=== PATIENT | male | born 1955 | race Caucasian/White ===

== ENCOUNTER → 2016-06-28 | Outpatient (CLI) | payer OTHER ==
[~2016-06-28] MED LIST: ALBUAER INH; AMOX1TAB43 PO; AMOX875T PO; ASPEC325 PO; ASPI325T39 PO; BUTA1TAB70 PO; EZET10TA63 PO; FLUT0.15 NAE; GLC/500 PO; HMLI SC; HYDR-5688 PO; INSDGI SC; LISI-461 PO; METF1000 PO; NVLG SC; OMEP20CA59 PO; PRD10 PO; PROP80CA PO; SIMV80TA2 PO; SULF800T23 PO; TRAM-10 PO; UMEC1AER INH
[2016-06-28 12:58] LABS: HEMATOCRIT 47.1 % (42-52); MEAN CELL VOLUME 85.6 fL (80-100); MEAN CORPUSCULAR HEMOGLOBIN 29.3 pg (25-34); MEAN CORPUSCULAR HGB CONC 34.2 g/dl (32-36); MEAN PLATELET VOLUME 10.3 fL (7.4-10.4); PLATELET COUNT 358 K/uL (130-400); WHITE BLOOD COUNT 10.21 K/uL (4.8-10.8)
[2016-06-28 13:09] LABS: ALT/SGPT 26 U/L (12-78); AST/SGOT 10 U/L (15-37); BLOOD UREA NITROGEN 15 mg/dl (7-18); CALCIUM 8.8 mg/dl (8.5-10.1); CARBON DIOXIDE 28 mmol/L (21-32); CHLORIDE 105 mmol/L (98-107); CHOLESTEROL 252 mg/dl (0-200); CREATININE 0.82 mg/dl (0.60-1.40); GLUCOSE 70 mg/dl (70-99); POTASSIUM 4.3 mmol/L (3.5-5.1); SODIUM 139 mmol/L (136-145); TRIGLYCERIDES 244 mg/dl (0-150); VERY LOW DENSITY LIPOPROT CALC 49 mg/dl
[2016-06-28 13:14] LABS: ALKALINE PHOSPHATASE 103 U/L (45-117); HDL CHOLESTEROL 36 mg/dl; LDL CHOLESTEROL CALCULATED 167 mg/dl; PROSTATE SPECIFIC ANTIGEN 0.982 ng/ml (0.000-4.000)
[2016-06-28 13:31] LABS: ESTIMATED AVERAGE GLUCOSE 154 mg/dl; HA1C FLAG Normal (Normal)
[2016-06-28 13:34] LABS: RATIO 64.7 mcg/mg (0-30.0)
== END | disposition home or self-care (01) ==
LOC: C.LABBFT 09:26
PROVIDERS: ATTEND Internal Medicine
DX: E11.29 Type 2 diabetes mellitus with other diabetic kidney complication (principal); Z12.5 Encounter for screening for malignant neoplasm of prostate

== ENCOUNTER → 2016-07-05 | Outpatient (CLI) | payer OTHER ==
--- NOTE | 2016-07-05 15:55 | DIAGNOSTIC IMAGING REPORT ---
CHEST 2 VIEWS ROUTINE CLINICAL HISTORY: R05 Cough dyspnea COMPARISON STUDY: 05/29/2014 FINDINGS: Slight chronic bibasilar interstitial change. No focal infiltrate. Diaphragms are smooth. Calcific angles are sharp. IMPRESSION: Chronic change. No acute process. Electronically signed by: James Mercado M.D. 07/05/2016 3:53 PM Dictated Date/Time: 07/05/2016 3:53 PM
== END | disposition home or self-care (01) ==
LOC: C.RAD 15:21
PROVIDERS: ATTEND Internal Medicine
DX: R05 Cough (principal)

== ENCOUNTER → 2016-08-23 | Outpatient (CLI) | payer OTHER ==
--- NOTE | 2016-08-23 16:16 | DIAGNOSTIC IMAGING REPORT ---
CT OF THE CHEST WITHOUT IV CONTRAST CLINICAL HISTORY: Cough. Dyspnea on exertion. COMPARISON STUDY: Chest radiograph July 05, 2016. CT DOSE: 312.42 mGy.cm TECHNIQUE: Axial images of the chest were obtained without IV contrast. Images were reviewed in the axial, sagittal, and coronal planes. IV contrast was not administered for this examination. FINDINGS: There is no pneumothorax or pleural effusion. There is severe narrowing of the bronchus intermedius due to a suspected mass. The mass-like abnormality measures approximately 4.1 x 3.8 cm. This mass abuts the pericardium. There is severe narrowing of the origin of the right middle lobe bronchi with suspected occlusion of the right lower lobe bronchus and proximal aspects of the segmental bronchi to the right lower lobe. Note is made of moderate volume loss of the right middle and right lower lobes. There are innumerable tree-in-bud nodules within the right middle and right lower lobes. A mildly enlarged right hilar lymph node shown on image 139 of 271 measures 1.4 cm in short axis diameter. A few small tree-in-bud nodules within the lingula are noted. The heart is mildly enlarged. There is extensive coronary artery calcification. Moderate upper lobe predominant emphysema is present. No suspicious osseous lesions are identified. No abnormalities are identified within visualized portions of the upper abdomen. IMPRESSION: 1. 4.1 x 3.8 cm mass within the right lower lobe with large endobronchial component which occludes the right lower lobe bronchus and severely narrows the bronchus intermedius and right middle lobe bronchi. This is highly suggestive of a neoplasm and worrisome for bronchogenic carcinoma. Consultation for consideration for bronchoscopy is recommended. Mass extends to the pericardium. Mild right middle lobe and right lower lobe volume loss with innumerable tree-in-bud nodules within these lobes. These nodules are likely postobstructive/infectious. Metastatic disease is considered less likely. 2. Indeterminate mildly enlarged right hilar lymph node. 3. Moderate emphysema. 4. Several tree-in-bud nodules within the lingula which favor an infectious etiology. 5. Moderate cardiomegaly and coronary artery calcification. Electronically signed by: Chad Kay M.D. 08/23/2016 4:14 PM Dictated Date/Time: 08/23/2016 3:45 PM
== END | disposition home or self-care (01) ==
LOC: C.CTS 15:32
PROVIDERS: ATTEND Nurse Practitioner
DX: J43.9 Emphysema, unspecified (principal); R91.8 Other nonspecific abnormal finding of lung field; I51.7 Cardiomegaly; R06.00 Dyspnea, unspecified; R05 Cough

== ENCOUNTER → 2016-08-30 | Outpatient (CLI) | payer OTHER | END | disposition home or self-care (01) | LOC: C.LAB 14:45 | PROVIDERS: ATTEND Surgery | DX: C34.90 Malignant neoplasm of unspecified part of unspecified bronchus or lung (principal) ==

== ENCOUNTER 2016-09-03 05:11 | Day surgery (SDC) | payer OTHER ==
[2016-08-30 16:33] LABS: BASO % 0.6 %; BASO ABS # 0.05 K/uL (0-0.2); COMPLETE YES; EOS % 3.9 %; HEMATOCRIT 48.2 % (42-52); IG% 0.2 %; LYMPH % 22.5 %; LYMPH ABS # 2.02 K/uL (1.2-3.4); MEAN CELL VOLUME 85.6 fL (80-100); MEAN CORPUSCULAR HEMOGLOBIN 28.4 pg (25-34); MEAN CORPUSCULAR HGB CONC 33.2 g/dl (32-36); MEAN PLATELET VOLUME 9.6 fL (7.4-10.4); MONO % 10.6 %; NEUT % 62.2 %; PLATELET COUNT 362 K/uL (130-400); RED BLOOD COUNT 5.63 M/uL (4.7-6.1); WHITE BLOOD COUNT 8.97 K/uL (4.8-10.8)
[2016-08-30 17:15] LABS: BLOOD UREA NITROGEN 15 mg/dl (7-18); BUN/CREATININE RATIO 18.4 (10-20); CALCIUM 8.9 mg/dl (8.5-10.1); CARBON DIOXIDE 29 mmol/L (21-32); CHLORIDE 104 mmol/L (98-107); CREATININE 0.83 mg/dl (0.60-1.40); GLUCOSE 96 mg/dl (70-99); POTASSIUM 3.8 mmol/L (3.5-5.1); SODIUM 141 mmol/L (136-145)
[2016-08-31 09:58] VITALS: BMI 26.0
[~2016-09-03] VITALS: Ht 177.8 cm; Wt 84.1 kg
[~2016-09-03 05:11] MED LIST changes: -AMOX1TAB43 PO; -AMOX875T PO; -ASPI325T39 PO; -BUTA1TAB70 PO; -FLUT0.15 NAE; -HYDR-5688 PO; -METF1000 PO; -NVLG SC; -OMEP20CA59 PO; -PRD10 PO; -SULF800T23 PO; -TRAM-10 PO
[2016-09-03] MEDS ORDERED: EpINEphrine INJ 1MG/ML AMP 1 MG/ML AMP IV ONE (05:12)
[2016-09-03 05:34] VITALS: BP 145/73; PULSE 59; TEMP 36.6; O2SAT 96; Ht 177.8 cm; Wt 84.1 kg
[2016-09-03] MEDS ORDERED: LACTATED RINGER'S 1000ML 1,000 ML IV SCH (06:00)
[2016-09-03] MEDS ORDERED: ONDANSETRON INJ 2 MG/ML 2 ML VIAL ONE (06:15)
[2016-09-03] MEDS ORDERED: FENTANYL CITRATE INJ 50 MCG/1 ML 2 ML VIAL ONE (06:15)
[2016-09-03] MEDS ORDERED: GLYCOPYRROLATE INJ 0.2 MG/ML VIAL ONE ×2 (06:15→08:12)
[2016-09-03] MEDS ORDERED: MIDAZOLAM HCL 1 MG/ML 2ML VIAL ONE (06:15)
[2016-09-03] MEDS ORDERED: ROCURONIUM BROMIDE 10 MG/ML 5 ML VIAL ONE (06:15)
[2016-09-03] MEDS ORDERED: PROPOFOL IV EMULSION 10 MG/ML 20 ML VIAL IV ONE ×2 (06:15→08:12)
[2016-09-03] MEDS ORDERED: LIDOCAINE HCL 2% 2 ML VIAL (20MG/ML) ONE (06:15)
[2016-09-03] MEDS ORDERED: PHENYLEPHRINE HCL INJ 10 MG/ML VIAL ONE (06:15)
[2016-09-03] MEDS ORDERED: EpHEDrine SULFATE 50MG/5ML SYR ONE (06:15)
[2016-09-03] MEDS ORDERED: SUCCINYLCHOLINE CHLORIDE 20 MG/ML 10 ML VIAL IV ONE (06:15)
[2016-09-03] MEDS ORDERED: NEOSTIGMINE METHYLSULFATE 5 MG/5 ML SYR ONE (06:15)
[2016-09-03] MEDS ORDERED: DEXAMETHASONE SOD INJ 4 MG/ML VIAL ONE (06:15)
--- NOTE | 2016-09-03 07:01 | History & Physical Bridge Note ---
H&P Re-Evaluation Bridge Note: I have examined the patient, reviewed the History & Physical and in the interval since the performance of the History & Physical I have noted the following changes of clinical significance: No changes noted
--- NOTE | 2016-09-03 07:18 | Discharge Instructions ---
Discharge Instructions Date of Service Sep 03, 2016. Visit Reason for Visit: Right Lung Mass, Iddm Discharge Discharge Diagnosis / Problem: Right Lung Mass Discharge Goals Goal(s): Learn about illness Activity Recommendations Activity Limitations: resume your previous activity (in 24 hours) Anesthesia . Post Anesthesia Instructions: If you have had General Anesthesia or IV Sedation: * Do not drive today. * Resume driving when surgeon permits. * Do not make important decisions or sign legal documents today. * Call surgeon for: 1. Temperature elevations greater than 101 degrees F. 2. Uncontrollable pain. 3. Excessive bleeding. 4. Persistent nausea and vomiting. 5. Medication intolerance (nausea, vomiting or rash). * For nausea and vomiting use only clear liquids such as: tea, soda, bouillon until nausea subsides, then gradually increase diet as tolerated. * If you have any concerns or questions, call your surgeon's office. If physician is unavailable and it is an emergency, call 911 or go to the nearest emergency room. . Instructions / Follow-Up Instructions / Follow-Up 1. You may cough up some blood. Call physician if excessive amount noted. 2. Office appointment with Dr. Chappell in 1 week. Office will call you with date and time of appointment. Diet Recommendations Recommended Home Diet: resume previous diet Pending Studies Studies pending at discharge: no Medical Emergencies . Who to Call and When: Medical Emergencies: If at any time you feel your situation is an emergency, please call 911 immediately. . Non-Emergent Contact Non-Emergency issues call your: Surgeon Call Non-Emergent contact if: you have a fever . . "Provider Documentation" section prepared by Douglas Anderson. .
[2016-09-03] MEDS ORDERED: CLINDAMYCIN PHOS 150 MG/ML 2 ML VIAL ONE (07:29)
[2016-09-03] MEDS ORDERED: ONDANSETRON INJ 2 MG/ML 2 ML VIAL IV PRN (08:00)
[2016-09-03] MEDS ORDERED: ATROPINE SULFATE 0.1 MG/ML 5ML SYR IV PRN (08:00)
[2016-09-03] MEDS ORDERED: FENTANYL CITRATE INJ 50 MCG/1 ML 2 ML VIAL IV PRN (08:00)
--- NOTE | 2016-09-03 09:06 | DIAGNOSTIC IMAGING REPORT ---
CHEST ONE VIEW PORTABLE CLINICAL HISTORY: s/p FOB dyspnea COMPARISON STUDY: 07/05/2016 FINDINGS: Mild bibasilar infiltrative and/or atelectatic change. Slight prominence of pulmonary vasculature. Mild stable cardiomegaly. Mild chronic elevation right hemidiaphragm. IMPRESSION: Mild bibasilar atelectatic and/or infiltrative change. Pulmonary vascular congestion. Electronically signed by: James Mercado M.D. 09/03/2016 9:05 AM Dictated Date/Time: 09/03/2016 9:04 AM
--- NOTE | 2016-09-03 11:01 | OPERATIVE REPORT ---
DATE OF OPERATION: 09/03/2016 PREOPERATIVE DIAGNOSIS: Right hilar mass. 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 PROCEDURE: 1. Fiberoptic bronchoscopy with biopsy and debulking of right middle lobe mass. 2. Staging endobronchial ultrasound. SURGEON: Dr. Chappell. TEST ADMINISTRATOR: Dawit Razo, respiratory therapy. ANESTHESIA: General anesthesia endotracheal intubation. INDICATION FOR PROCEDURE AND FINDINGS: Mr. Cobian is a 60-year-old male who I just met 4 days ago when he was in the office. He had been referred over by Dr. Rolly Conde because he had a right hilar mass. I scheduled him for a bronchoscopy and as well as a staging endobronchial ultrasound with biopsy for today. SPECIFICS OF THE PROCEDURE: On 09/03/2016, the patient underwent uncomplicated induction of general anesthesia with insertion of an endobronchial ultrasound scope. I biopsied the left level 11, level 10, and level 4, as well as level 7 nodes. We got good biopsy results from the level 4, level 10, and level 11 sides. These were all benign and it appeared we were definitely in the lymph nodes. Unfortunately, it appears that he does have disease involving the level 7 node. It appeared to be a nonsmall cell lung carcinoma. I did not biopsy anything on the right as we already had proven into disease. I then saw the obstructing mass in the right bronchus intermedius. I did some biopsies were removed a large nodule, but this did not appear to be tissue. It did appear to be a concretion of some type. I had to remove this with a basket. I then biopsied this and noted some bleeding. I then used a cryoprobe to debulk this and opened it up nicely going to the lower lobe. I had to use a cryoprobe also to control bleeding. He tolerated it well. DESCRIPTION OF PROCEDURE: The patient brought to operating room, laid in the supine position. General anesthesia was induced and endotracheal intubation was performed. After appropriate timeout had been called and prophylactic antibiotics were given, I placed the endobronchial ultrasound probe in place. I could see there was an obstructing mass in the bronchus intermedius; however, we then started on the left side. I went down to level 11 and did 3 separate biopsies into a small node. Pulling back further, I did a left level 10 and biopsied this several times. I then did a left level 4. We received word that we really did not have good lymph node material on the third pass on the level 11, so I re-biopsied this and we had good lymph node tissue. I then had to re-biopsy the level 10 and level 4 areas as we did not have good biopsy specimens; however, that did come back that we had good biopsy results with good lymphocytes and we saw no evidence of tumor in these 3 lymph node stations. I then went to level 7. I biopsied this lymph node 10 separate times with 5 on the left and 5 on the right. There were actually 3 separate lymph nodes within this lymph node station. We got good biopsy results and it did appear that we were dealing with a nonsmall cell lung CA and that lymph node was positive. For this reason, I did not biopsy the right level 4 and right level 2, as these were not enlarged at any rate. I then irrigated out both airways and then attention was turned towards the obstructing mass in the left bronchus intermedius. It should be noted that it was well over a centimeter maybe 2 cm away from the takeoff of the right upper lobe bronchus and this was consistent with what we saw on the preoperative CT scan. I then used a forceps and biopsied and came upon a yellow concretion that was at least a centimeter across and was not really attached. I took some bite this and then we pulled it out in its entirety, but I could not get enough bite with the forceps to pull it out. For this reason, I used a basket and went down through the working channel and I was able to use the basket to capture this and bring it out. I then did brushes x3 down the bronchus intermedius; however, we got a fair amount of bleeding. In order to see better, I placed a balloon and inflated it and kept it inflated for a couple minutes and this did help. I also irrigated it with cold saline and then epinephrine. This controlled the bleeding enough for me to be able to put my cryoprobe down and debulk this tumor where I could see. We removed several portions with this and opened it up quite nicely. I also used a forceps as necessary. I was quite happy with this at the end of the case as we had opened it up nicely. We also had plenty of biopsy material. There was no further bleeding. I irrigated out the bronchus intermedius and sent off for bronchial washings. I then slowly removed the bronchoscope and there was no bleeding noted from either airway. There was no mucus left either. He tolerated it well and was extubated in the room. I attest to the content of the Intraoperative Record and any orders documented therein. Any exceptions are noted below. BINU
[2016-09-03 11:05] VITALS: BP 142/82; PULSE 66; TEMP 36.7; O2SAT 93
--- NOTE | 2016-09-03 11:17 | Anesthesiology Progress Note ---
Anesthesia Post Op Note Date & Time Sep 03, 2016 at 11:17 Vital Signs Pain Intensity: 0 Vital Signs Past 12 Hours Date Time Temp Pulse Resp B/P (MAP) Pulse Ox O2 Delivery O2 Flow Rate FiO2 09/03/16 09:50 64 22 119/64 90 Mask 2 09/03/16 09:10 63 18 119/55 95 Mask 10 09/03/16 09:00 68 19 146/67 97 Mask 10 09/03/16 08:50 61 16 145/69 96 Mask 12 09/03/16 08:40 36.3 70 18 135/72 95 Mask 12 09/03/16 05:34 36.6 59 20 145/73 (97) 96 Room Air Notes Mental Status: alert / awake / arousable, participated in evaluation Pt Amnestic to Procedure: Yes Nausea / Vomiting: adequately controlled Pain: adequately controlled Airway Patency, RR, SpO2: stable & adequate BP & HR: stable & adequate Hydration State: stable & adequate Anesthetic Complications: no major complications apparent
[2016-09-03 11:35] VITALS: BP 160/74; PULSE 70; TEMP 37.2; O2SAT 95
[2016-09-03 12:05] VITALS: BP 150/70; PULSE 69; TEMP 36.7; O2SAT 93
[2016-09-03 12:30] VITALS: BP 130/68; PULSE 70; TEMP 36.6; O2SAT 93
[2016-10-29] MEDS ORDERED: OMEP20CA59 PO (16:09)
[2016-11-12] MEDS ORDERED: TRAM-10 PO (08:27)
== END 2016-09-03 12:50 | disposition home or self-care (01) ==
LOC: C.ACU 05:11
PROVIDERS: ATTEND Surgery
DX: C34.01 Malignant neoplasm of right main bronchus (principal); J44.9 Chronic obstructive pulmonary disease, unspecified; I10 Essential (primary) hypertension; E11.9 Type 2 diabetes mellitus without complications; Z87.891 Personal history of nicotine dependence; E78.00 Pure hypercholesterolemia, unspecified; Z82.49 Family history of ischemic heart disease and other diseases of the circulatory system; Z83.3 Family history of diabetes mellitus; Z79.82 Long term (current) use of aspirin; Z79.4 Long term (current) use of insulin; Z79.899 Other long term (current) drug therapy

== ENCOUNTER → 2016-09-10 | Outpatient (CLI) | payer OTHER ==
[~2016-09-10] MED LIST changes: +AMOX1TAB43 PO; +AMOX875T PO; +ASPI325T39 PO; +HYDR-5688 PO; +NVLG SC; +OMEP20CA59 PO; +PRD10 PO; +SULF800T23 PO; +TRAM-10 PO
--- NOTE | 2016-09-10 11:01 | DIAGNOSTIC IMAGING REPORT ---
PET/CT CLINICAL HISTORY: Right lung mass. COMPARISON STUDY: Chest CT dated 08/23/2016. TECHNIQUE: One hour following the IV administration of 13.91 mCi of F-18 FDG, PET/CT examination was performed from the orbital meatal line through the bony pelvis. Noncontrast CT is performed for the purposes of anatomic correlation and attenuation correction. Note that this does not reflect a diagnostic CT examination. Images were reviewed on a separate [employer] independent workstation. Fused images were obtained. Standard uptake values reported are maximum values within the region of interest expressed in gm/mL. FINDINGS: PET FINDINGS: Head and neck: There is expected physiologic activity within the visualized brain parenchyma at the skull base and the salivary glands. Thorax: Evaluation of the thorax demonstrates expected physiologic myocardial activity. There is an infrahilar right lower lobe mass lesion identified. This measures approximately 4.5 x 3.8 cm and is markedly FDG avid with a maximum SUV of 7.0. There are numerous subcentimeter pulmonary nodules seen throughout the right middle and right lower lobes. Nodularity at the posterior right lung base has increased from 08/23/2016. These are FDG avid with a maximum SUV of 4.3. No left-sided pulmonary lesions are identified. A right hilar lymph node on image #86 measures 1.3 cm in short axis. This shows at least mild FDG uptake with a maximum SUV of 1.1. A precarinal node on image #79 is not pathologically enlarged but shows mild FDG activity. This measures 7 mm in short axis and demonstrates a maximum SUV of 2.3. No FDG avid left hilar adenopathy is seen. Abdomen and pelvis: There is expected activity within the liver, spleen, kidneys, renal collecting system, and bladder. Low-level bowel activity is likely within physical limits. Unenhanced CT images: Visualized brain parenchyma the skull base is grossly unremarkable. The bony orbits are intact and orbital contents are within normal limits. The salivary and thyroid glands are normal as visualized. The imaged paranasal sinuses and the mastoid air cells are clear. No cervical lymphadenopathy is seen. There is atherosclerotic calcification of the carotid bulbs. The heart is normal in size and without pericardial effusion. The coronary arteries are densely calcified. There is atherosclerotic calcification of the thoracic aorta which is normal in caliber. Emphysema is noted. No pleural effusion is identified. See above under PET findings for discussion of pulmonary lesions. There is no axillary lymphadenopathy. A tiny hiatal hernia is noted. The unenhanced liver, gallbladder, spleen, adrenal glands, and kidneys are grossly normal. The pancreas is atrophic. The abdominal aorta is normal in course and caliber noting advanced atherosclerotic calcification. No bowel obstruction is identified. There is moderate sigmoid diverticulosis without CT evidence of acute diverticulitis. A normal appendix is seen. There is no intraperitoneal free air or abdominal ascites. Foci of induration within the ventral abdominal wall are likely related to subcutaneous injections. The bladder, prostate, and seminal vesicles are normal as imaged. No abdominal, pelvic, or retroperitoneal lymphadenopathy is seen. Surgical clips are noted along the spermatic cord. The skeletal structures are well mineralized. No lytic or blastic bony lesions are suggested. Mild degenerative change is seen throughout the spine. IMPRESSION: 1. There is an infiltrative right infrahilar mass lesion measuring approximately 4.5 cm. This should be considered lung cancer until proven otherwise. 2. There are numerous subcentimeter nodules identified in the right middle and lower lobes. There is abnormal FDG localization within this region, and nodularity at the posterior right lung base appears increased from 08/23/2016. This could represent postobstructive pneumonitis and/or lymphangitic spread of tumor. 3. There is a mildly enlarged and FDG avid right hilar node. A precarinal node is not pathologically enlarged but also demonstrates low-level FDG uptake. Yanelis disease is not excluded. 4. No left-sided pulmonary lesions are identified. 5. There is no evidence of extrathoracic metastatic disease. 6. Emphysema. 7. Colonic diverticulosis without CT evidence of acute diverticulitis. 8. Additional findings as above. Electronically signed by: Alec Rogers M.D. 09/10/2016 11:00 AM Dictated Date/Time: 09/10/2016 10:44 AM
== END | disposition home or self-care (01) ==
LOC: C.PET 08:19
PROVIDERS: ATTEND Surgery
DX: R91.1 Solitary pulmonary nodule (principal)

== ENCOUNTER 2016-10-03 20:00 | Inpatient (IN) | payer OTHER ==
[~2016-10-03] VITALS: Ht 177.8 cm; Wt 82.0 kg
[~2016-10-03 20:00] MED LIST changes: -AMOX1TAB43 PO; -AMOX875T PO; -ASPI325T39 PO; -HYDR-5688 PO; -NVLG SC; -OMEP20CA59 PO; -PRD10 PO; -SULF800T23 PO; -TRAM-10 PO
[2016-10-03] MEDS ORDERED: ASPI325T39 PO (20:35)
[2016-10-03] MEDS ORDERED: INSDGI SC (20:37)
[2016-10-03] MEDS ORDERED: NVLG SC (20:40)
[2016-10-03] MEDS ORDERED: HYDR-5688 PO (20:44)
--- NOTE | 2016-10-03 21:00 | DIAGNOSTIC IMAGING REPORT ---
CHEST ONE VIEW PORTABLE CLINICAL HISTORY: Shortness of breath, chest pain and difficulty breathing. COMPARISON STUDY: Chest CT August 23, 2016, chest radiograph September 03, 2016 and PET/CT September 10, 2016. FINDINGS: There is no pneumothorax or pleural effusion. A right infrahilar mass is better depicted on PET/CT of September 10, 2016. Right lower lobe airspace opacity is present. There is mild left lower lobe opacity. There is no evidence of pulmonary edema. Cardiomediastinal silhouette is stable. IMPRESSION: 1. Redemonstration of the right infrahilar mass which is suspicious for malignancy and better depicted on prior PET/CT. 2. Right lower lung opacity which could reflect pneumonia or atelectasis. 3. No evidence of pulmonary edema. Electronically signed by: Chad Kay M.D. 10/03/2016 8:58 PM Dictated Date/Time: 10/03/2016 8:56 PM
[2016-10-03] MEDS ORDERED: OPTIRAY 320 IV PRN (21:30)
[2016-10-03 21:34] LABS: BASO % 0.4 %; BASO ABS # 0.05 K/uL (0-0.2); COMPLETE YES; IG% 0.5 %; LYMPH % 16.3 %; LYMPH ABS # 1.99 K/uL (1.2-3.4); MEAN CELL VOLUME 86.2 fL (80-100); MEAN CORPUSCULAR HEMOGLOBIN 28.5 pg (25-34); MEAN CORPUSCULAR HGB CONC 33.1 g/dl (32-36); MEAN PLATELET VOLUME 9.6 fL (7.4-10.4); MONO % 12.2 %; NEUT % 67.6 %; PLATELET COUNT 470 K/uL (130-400); RED BLOOD COUNT 4.87 M/uL (4.7-6.1); WHITE BLOOD COUNT 12.19 K/uL (4.8-10.8)
--- NOTE | 2016-10-03 21:37 | EMERGENCY ROOM VISIT NOTE ---
History Report prepared by Meredith: Vel Farias Under the Supervision of: Dr. Malena Ortega D.O. First contact with patient: 21:01 Chief Complaint: RESPIRATORY PROBLEMS Stated Complaint: TROUBLE BREATHING, CHEST PAINS History of Present Illness The patient is a 60 year old male who presents to the Emergency Room with complaints of constant, sharp back pain beginning prior to arrival. The patient states that he went to lie down in his bed and as soon as he laid flat, his symptoms began. He reports that the pain was sharp and sudden, and radiates to his chest and nowhere else. The patient notes that he was not able to breathe until he sat up. He states that he is coughing up clear fluid, and it makes him feel better. The patient reports that he used his inhaler as he was walking out of the door, and it helped a little. He notes the past few nights he has been sweating through the sheets. The patient denies dizziness, change in bowel movements, change in urinary symptoms, and edema to the legs. He reports that he has never experienced an episode like this before. The patient states that he has been diagnosed with stage three lung cancer and has not started treatment yet. He notes that he has been around someone with pneumonia and another person with a chest cold. The patient denies a history of heart problem. Source of History: patient Onset: prior to arrival Position: back Quality: sharp Timing: constant Associated Symptoms: + diaphoresis, + cough, + chest pain, + SOB, No urinary symptoms Note: Denies: dizziness, change in bowel movements, and edema to the legs Review of Systems See HPI for pertinent positives & negatives. A total of 10 systems reviewed and were otherwise negative. Past Medical & Surgical Medical Problems: (1) Bronchitis (2) Diabetes mellitus (3) Plantar fasciitis (4) Pneumonia (5) Postobstructive pneumonia (6) urinary problems Social History Smoking Status: Former Smoker Alcohol Use: none Housing Status: lives with family Occupation Status: employed Current/Historical Medications Scheduled Aspirin (Aspirin Ec), 325 MG PO DAILY Ezetimibe (Zetia), 10 MG PO QAM Insulin Aspart (Novolog), SC UD Insulin Glargine (Lantus), 65 SC QPM Lisinopril (Zestril), 10 MG PO QAM Metformin Hcl (Glucophage), 500 MG PO QPM Propranolol Hcl (Propranolol Hcl Er), 80 MG PO QAM Simvastatin (Zocor), 80 MG PO QAM Umeclidinium-Vilanterol (Anoro Ellipta 62.5-25 Mcg/INH), 1 PUFF INH QPM Scheduled PRN Albuterol Sulfate (Proventil Hfa), 2 PUFFS INH QID PRN for RN Hydrocodone/Acetaminophen 5MG/325MG (Liberty 5MG/325MG), 1 TAB PO DAILY PRN for Pain Allergies Coded Allergies: Varenicline (Verified Adverse Reaction, Mild, WEIRD DREAMS, 10/03/16) Physical Exam Vital Signs Date Time Temp Pulse Resp B/P (MAP) Pulse Ox O2 Delivery O2 Flow Rate FiO2 10/04/16 00:19 79 24 141/77 93 Room Air 10/04/16 00:05 77 10/03/16 22:40 76 25 10/03/16 22:35 76 24 10/03/16 22:30 75 29 10/03/16 21:55 71 27 93 10/03/16 21:50 72 24 94 10/03/16 21:45 72 33 94 10/03/16 21:40 72 35 94 10/03/16 21:35 73 33 93 10/03/16 21:31 152/81 10/03/16 21:30 74 25 94 10/03/16 21:25 71 32 95 10/03/16 21:20 73 18 95 10/03/16 21:15 72 20 95 10/03/16 21:10 71 8 94 10/03/16 21:05 76 31 94 10/03/16 21:01 150/80 10/03/16 21:00 72 15 94 10/03/16 20:55 73 36 94 10/03/16 20:50 71 22 94 10/03/16 20:45 69 39 95 10/03/16 20:40 72 23 95 10/03/16 20:35 70 28 94 10/03/16 20:31 141/73 10/03/16 20:30 69 29 94 10/03/16 20:28 69 10/03/16 20:25 68 41 95 10/03/16 20:14 Nasal Cannula 10/03/16 20:10 152/96 10/03/16 20:02 37.3 84 24 165/85 92 Room Air Physical Exam GENERAL: alert, well appearing, well nourished, moderate distress, non-toxic EYE EXAM: normal conjunctiva, PERRL and EOM's grossly intact OROPHARYNX: no exudate, no erythema, lips, buccal mucosa, and tongue normal and mucous membranes are moist NECK: supple, no nuchal rigidity, no adenopathy, non-tender LUNGS: Increased worker breathing, diminished breath sounds bilaterally, no wheezing, no rale, no rhonchi. HEART: no murmurs, S1 normal and S2 normal ABDOMEN: abdomen soft, non-tender, normo-active bowel sounds, no masses, no rebound or guarding. BACK: Back is symmetrical on inspection and there is no deformity, no midline tenderness, no CVA tenderness. SKIN: no rashes and no bruising UPPER EXTREMITIES: upper extremities are grossly normal. LOWER EXTREMITIES: No pitting edema. NEURO EXAM: Normal sensorium, cranial nerves II-XII grossly intact, normal speech, no gross weakness of arms, no gross weakness of legs. Medical Decision & Procedures ER Provider Diagnostic Interpretation: Radiology results have been interpreted by the radiologist and reviewed by me. CHEST ONE VIEW PORTABLE CLINICAL HISTORY: Shortness of breath, chest pain and difficulty breathing. COMPARISON STUDY: Chest CT August 23, 2016, chest radiograph September 03, 2016 and PET/CT September 10, 2016. FINDINGS: There is no pneumothorax or pleural effusion. A right infrahilar mass is better depicted on PET/CT of September 10, 2016. Right lower lobe airspace opacity is present. There is mild left lower lobe opacity. There is no evidence of pulmonary edema. Cardiomediastinal silhouette is stable. IMPRESSION: 1. Redemonstration of the right infrahilar mass which is suspicious for malignancy and better depicted on prior PET/CT. 2. Right lower lung opacity which could reflect pneumonia or atelectasis. 3. No evidence of pulmonary edema. Electronically signed by: Chad Kay M.D. 10/03/2016 8:58 PM Dictated Date/Time: 10/03/2016 8:[address] ANGIOGRAPHY OF THE CHEST, PULMONARY EMBOLUS PROTOCOL CLINICAL HISTORY: Chest and back pain. Difficulty breathing. Lung cancer. COMPARISON STUDY: Chest CT August 23, 2016 and PET/CT September 10, 2016. TECHNIQUE: Following IV administration of 93 mL of Optiray-320, helical axial images of the chest were obtained utilizing the pulmonary embolus protocol. Maximal intensity projections and sagittal and coronal reformats were viewed on an independent 3D workstation. IV contrast was administered without complication. CT DOSE: 514.09 mGy.cm FINDINGS: No pulmonary emboli are identified although the segmental and subsegmental pulmonary arteries are suboptimally assessed due to respiratory motion. Right lower lobe and right middle lobe pulmonary arteries are narrowed likely by the mass shown on prior PET/CT of September 10, 2016. This right infrahilar mass is obscured by adjacent airspace opacity which has progressed since prior PET/CT of September 10, 2016. There is also extensive right middle lobe airspace opacity. The right lower lobe bronchus is occluded. The bronchus intermedius and right middle lobe bronchus is also occluded. Several mildly enlarged right hilar and subcarinal lymph nodes are noted. Index right hilar node measures 1.3 cm. Index subcarinal node measures 1.5 cm. There is moderate emphysema. No pneumothorax is present. No suspicious osseous lesion is present. The abdomen and pelvis is unremarkable. The heart is mildly enlarged. There is no pericardial effusion. IMPRESSION: 1. No pulmonary emboli identified although segmental and subsegmental pulmonary arteries are suboptimally assessed due to respiratory motion. Narrowed right middle lobe and lower lobe pulmonary arteries due to the known right infrahilar mass. 2. Interval increase in right lower lobe and middle lobe airspace opacity since PET/CT of September 10, 2016. This airspace opacity obscures the known right infrahilar mass. The opacity could reflect pneumonia or postradiation pneumonitis. Occluded right lower lobe and middle lobe bronchi due to the known mass. 3. Mildly enlarged right hilar and subcarinal lymph nodes. 4. Moderate emphysema. Electronically signed by: Chad Kay M.D. 10/03/2016 10:29 PM Dictated Date/Time: 10/03/2016 10:12 PM Laboratory Results Test 10/03/16 20:10 10/03/16 21:30 Immature Granulocyte % (Auto) 0.5 % White Blood Count 12.19 K/uL (4.8-10.8) Red Blood Count 4.87 M/uL (4.7-6.1) Hemoglobin 13.9 g/dL (14.0-18.0) Hematocrit 42.0 % (42-52) Mean Corpuscular Volume 86.2 fL (80-100) Mean Corpuscular Hemoglobin 28.5 pg (25-34) Mean Corpuscular Hemoglobin Concent 33.1 g/dl (32-36) Platelet Count 470 K/uL (130-400) Mean Platelet Volume 9.6 fL (7.4-10.4) Neutrophils (%) (Auto) 67.6 % Lymphocytes (%) (Auto) 16.3 % Monocytes (%) (Auto) 12.2 % Eosinophils (%) (Auto) 3.0 % Basophils (%) (Auto) 0.4 % Neutrophils # (Auto) 8.23 K/uL (1.4-6.5) Lymphocytes # (Auto) 1.99 K/uL (1.2-3.4) Monocytes # (Auto) 1.49 K/uL (0.11-0.59) Eosinophils # (Auto) 0.37 K/uL (0-0.5) Basophils # (Auto) 0.05 K/uL (0-0.2) Immature Granulocyte # (Auto) 0.06 K/uL (0.00-0.02) Total Bilirubin 0.2 mg/dl (0.2-1) Aspartate Amino Transf (AST/SGOT) 34 U/L (15-37) Alanine Aminotransferase (ALT/SGPT) 60 U/L (12-78) Alkaline Phosphatase 135 U/L (45-117) Troponin I < 0.015 ng/ml (0-0.045) Pro-B-Type Natriuretic Peptide 81 pg/ml (0-900) Total Protein 7.0 gm/dl (6.4-8.2) Albumin 2.8 gm/dl (3.4-5.0) Globulin 4.2 gm/dl (2.5-4.0) Albumin/Globulin Ratio 0.7 (0.9-2) Lactic Acid Level 1.0 mmol/L (0.4-2.0) Laboratory results per my review. Medications Administered Medications (Trade) Dose Ordered Sig/Jeromy Route Start Time Stop Time Status Last Admin Dose Admin Levofloxacin (Levaquin / D5W) 750 mg NOW STAT IV 10/03/16 22:40 10/03/16 22:41 DC 10/03/16 22:58 750 MG Albuterol/ Ipratropium (Duoneb) 3 ml NOW STAT INH 10/03/16 22:52 10/03/16 22:53 DC 10/03/16 22:58 3 ML ECG Indication: SOB/dyspnea Rate (beats per minute): 81 Rhythm: sinus rhythm Findings: no acute ischemic change, other (Normal axis, normal intervals, low voltage throughout) ED Course 2114: The patient was evaluated in room A02. A complete history and physical exam was performed. 2239: Ordered Levofloxacin 750 mg IV 2251: Ordered Duoneb 3 ml INH 3: Upon reevaluation, the patient states that his breathing is better, but he still has an increased worker's breathing. I discussed the findings and the treatment plan with the patient. He expresses agreement and understanding. 2310: I discussed the patient's case with Dr. Castellon, [facility] Hosptialist. The patient will be evaluated for further treatment. Medical Decision Differential diagnoses includes but is not limited to pneumonia, bronchitis, COPD/Asthma exacerbation, pneumothorax, pulmonary embolism, congestive heart failure, acute coronary syndrome Medication Reconciliation: I attest that I have personally reviewed the patient' s current medication list. Blood pressure screening: Patient was found to have a slightly elevated blood pressure due to circumstances. I do not believe that the patient requires hypertension monitoring. Patient with recent diagnosis of lung cancer and has undergone staging, has not yet started chemotherapy or radiation. Patient felt improvement fine place a nasal cannula, however still had increased work of breathing despite neb treatments. Patient with additional imaging and labs as a precaution and found to have a postobstructive pneumonia. Patient not overtly hypoxic here, however did have tachypnea. Patient made aware of all results and need for IV antibiotics, as well as admission. He was agreeable with plan. Consults Time Called: 2250 Consulting Physician: Dr. Castellon, [facility] Hosptialist Returned Call: 2310 I discussed the patient's case with Dr. Vu, working with the [facility] Hosptialist. The patient will be evaluated for further treatment. Impression Primary Impression: Pneumonia Additional Impressions: COPD (chronic obstructive pulmonary disease) Lung cancer Scribe Attestation The scribe's documentation has been prepared under my direction and personally reviewed by me in its entirety. I confirm that the note above accurately reflects all work, treatment, procedures, and medical decision making performed by me. Departure Information Dispostion Being Evaluated By Hospitalist Referrals Rolly Conde M.D. (PCP) Patient Instructions My [facility] Problem Qualifiers Additional Impressions: COPD (chronic obstructive pulmonary disease) COPD type: unspecified COPD Qualified Codes: J44.9 - Chronic obstructive pulmonary disease, unspecified Lung cancer Laterality: unspecified laterality Lung location: unspecified part of lung Qualified Codes: C34.90 - Malignant neoplasm of unspecified part of unspecified bronchus or lung
[2016-10-03 21:50] LABS: ALT/SGPT 60 U/L (12-78); AST/SGOT 34 U/L (15-37); BLOOD UREA NITROGEN 14 mg/dl (7-18); BUN/CREATININE RATIO 14.8 (10-20); CARBON DIOXIDE 26 mmol/L (21-32); CHLORIDE 104 mmol/L (98-107); CREATININE 0.95 mg/dl (0.60-1.40); GLUCOSE 188 mg/dl (70-99); POTASSIUM 4.1 mmol/L (3.5-5.1); SODIUM 139 mmol/L (136-145)
[2016-10-03 21:55] LABS: ALB/GLOB RATIO 0.7 (0.9-2); ALKALINE PHOSPHATASE 135 U/L (45-117)
--- NOTE | 2016-10-03 22:30 | DIAGNOSTIC IMAGING REPORT ---
CT ANGIOGRAPHY OF THE CHEST, PULMONARY EMBOLUS PROTOCOL CLINICAL HISTORY: Chest and back pain. Difficulty breathing. Lung cancer. COMPARISON STUDY: Chest CT August 23, 2016 and PET/CT September 10, 2016. TECHNIQUE: Following IV administration of 93 mL of Optiray-320, helical axial images of the chest were obtained utilizing the pulmonary embolus protocol. Maximal intensity projections and sagittal and coronal reformats were viewed on an independent 3D workstation. IV contrast was administered without complication. CT DOSE: 514.09 mGy.cm FINDINGS: No pulmonary emboli are identified although the segmental and subsegmental pulmonary arteries are suboptimally assessed due to respiratory motion. Right lower lobe and right middle lobe pulmonary arteries are narrowed likely by the mass shown on prior PET/CT of September 10, 2016. This right infrahilar mass is obscured by adjacent airspace opacity which has progressed since prior PET/CT of September 10, 2016. There is also extensive right middle lobe airspace opacity. The right lower lobe bronchus is occluded. The bronchus intermedius and right middle lobe bronchus is also occluded. Several mildly enlarged right hilar and subcarinal lymph nodes are noted. Index right hilar node measures 1.3 cm. Index subcarinal node measures 1.5 cm. There is moderate emphysema. No pneumothorax is present. No suspicious osseous lesion is present. The abdomen and pelvis is unremarkable. The heart is mildly enlarged. There is no pericardial effusion. IMPRESSION: 1. No pulmonary emboli identified although segmental and subsegmental pulmonary arteries are suboptimally assessed due to respiratory motion. Narrowed right middle lobe and lower lobe pulmonary arteries due to the known right infrahilar mass. 2. Interval increase in right lower lobe and middle lobe airspace opacity since PET/CT of September 10, 2016. This airspace opacity obscures the known right infrahilar mass. The opacity could reflect pneumonia or postradiation pneumonitis. Occluded right lower lobe and middle lobe bronchi due to the known mass. 3. Mildly enlarged right hilar and subcarinal lymph nodes. 4. Moderate emphysema. Electronically signed by: Chad Kay M.D. 10/03/2016 10:29 PM Dictated Date/Time: 10/03/2016 10:12 PM
[2016-10-03] MEDS ORDERED: LEVAQUIN 750MG / 150ML D5W IV STA (22:40)
[2016-10-03] MEDS ORDERED: ALBUT/IPRATROP 3MG/0.5MG NEB 3 ML VIAL INH STA (22:52)
[2016-10-04] VITALS (7 sets, daily range): BP systolic 115–138; BP diastolic 65–76; PULSE 60–68; TEMP 36.7–37; O2SAT 92–98; Ht 177.8 cm; Wt 82.0 kg
[2016-10-04] MEDS ORDERED: MoRPHine SULFATE 2 MG/ML CARP IV STA (02:21)
[2016-10-04] MEDS ORDERED: VANCOMYCIN INJ 1,000 MG in SODIUM CHLORIDE 0.9% 250ML 250 ML IV ONE (02:23)
[2016-10-04] MEDS ORDERED: PIPERACILL/TAZOBAC IV 3.375 GM in DEXTROSE 5% 100ML 100 ML IV ONE (02:23)
[2016-10-04] MEDS ORDERED: ALUMINUM/MAGNESIUM/SIMETH (MAALOX MAX) 30 ML UDC PO PRN (02:30)
[2016-10-04] MEDS ORDERED: ALBUTEROL 0.083% NEBU SOLN 3 ML VIAL INH PRN (02:30)
[2016-10-04] MEDS ORDERED: ONDANSETRON INJ 2 MG/ML 2 ML VIAL IV PRN (02:30)
[2016-10-04] MEDS ORDERED: MoRPHine SULFATE 2 MG/ML CARP IV PRN (02:30)
[2016-10-04] MEDS ORDERED: POLYETHYLENE (MIRALAX) 17 GM PACK PO PRN (02:30)
[2016-10-04] MEDS ORDERED: ACETAMINOPHEN 325 MG TAB PO PRN (02:30)
--- NOTE | 2016-10-04 02:30 | History and Physical ---
History & Physical Date & Time of Service: Oct 04, 2016 at 02:30 Chief Complaint: Trouble Breathing, Chest Pains Primary Care Physician: Rolly Conde M.D. History of Present Illness Source: patient 58-year-old male with a past medical history of diabetes, stage III lung cancer presented to the ER with complaints of excision shortness of breath and sharp back pain which started about 6:30 PM last night which were worse as he laid down on his bed. He reported the pain as 12 on a scale of 10 radiating to the back. Complains of fevers and chills and was trying to cough up some clear sputum. He had recently been diagnosed with lung cancer and recently had a PET/CT done about a week ago and has not yet started treatment. Denies any calf swelling or tenderness Past Medical/Surgical History Medical Problems: (1) Bronchitis Status: Resolved (2) Diabetes mellitus Status: Chronic (3) Plantar fasciitis Status: Resolved (4) Pneumonia Status: Resolved Social History Smoking Status: Former Smoker Occupational Status: employed Multi-Drug Resistant Organisms History of MDRO: No Allergies Coded Allergies: Varenicline (Verified Adverse Reaction, Mild, WEIRD DREAMS, 10/03/16) Home Medications Scheduled Amoxicillin & Pot Clavulanate (Augmentin 875-125 mg), 1 TAB PO BID Aspirin (Aspirin Ec), 325 MG PO DAILY Ezetimibe (Zetia), 10 MG PO QAM Insulin Aspart (Novolog), SC UD Insulin Glargine (Lantus), 65 SC QPM Lisinopril (Zestril), 10 MG PO QAM Metformin Hcl (Glucophage), 500 MG PO QPM Propranolol Hcl (Propranolol Hcl Er), 80 MG PO QAM Simvastatin (Zocor), 80 MG PO QAM Sulfa/Trimethoprim (Bactrim Ds 800MG/160MG), 1 TAB PO BID Umeclidinium-Vilanterol (Anoro Ellipta 62.5-25 Mcg/INH), 1 PUFF INH QPM Scheduled PRN Albuterol Sulfate (Proventil Hfa), 2 PUFFS INH QID PRN for RN Hydrocodone/Acetaminophen 5MG/325MG ([place] 5MG/325MG), 1 TAB PO DAILY PRN for Pain Review of Systems Constitutional: No fever, No chills Eyes: No worsening of vision ENT: No hearing loss Respiratory: + cough, + sputum, + shortness of breath Cardiovascular: + chest pain Abdomen: No pain, No nausea, No vomiting, No diarrhea Musculoskeletal: No joint pain Genitourinary - Male: No hematuria, No dysuria, No urinary frequency Neurologic: No memory loss Psychiatric: No depression symptoms Endocrine: No fatigue Hematologic / Lymphatic: No abnormal bleeding/bruising Allergic / Immunologic: No environmental allergies Physical Exam Vital Signs Date Time Temp Pulse Resp B/P (MAP) Pulse Ox O2 Delivery O2 Flow Rate FiO2 10/04/16 02:06 72 24 136/78 98 Room Air 10/04/16 00:19 79 24 141/77 93 Room Air 10/04/16 00:05 77 10/03/16 22:40 76 25 10/03/16 22:35 76 24 10/03/16 22:30 75 29 10/03/16 21:55 71 27 93 10/03/16 21:50 72 24 94 10/03/16 21:45 72 33 94 10/03/16 21:40 72 35 94 10/03/16 21:35 73 33 93 10/03/16 21:31 152/81 10/03/16 21:30 74 25 94 10/03/16 21:25 71 32 95 10/03/16 21:20 73 18 95 10/03/16 21:15 72 20 95 10/03/16 21:10 71 8 94 10/03/16 21:05 76 31 94 10/03/16 21:01 150/80 10/03/16 21:00 72 15 94 10/03/16 20:55 73 36 94 10/03/16 20:50 71 22 94 10/03/16 20:45 69 39 95 10/03/16 20:40 72 23 95 10/03/16 20:35 70 28 94 10/03/16 20:31 141/73 10/03/16 20:30 69 29 94 10/03/16 20:28 69 10/03/16 20:25 68 41 95 10/03/16 20:14 Nasal Cannula 10/03/16 20:10 152/96 10/03/16 20:02 37.3 84 24 165/85 92 Room Air General Appearance: WD/WN, no apparent distress Head: normocephalic Eyes: normal inspection ENT: normal ENT inspection, hearing grossly normal Neck: supple Respiratory/Chest: chest non-tender, + pertinent finding (diminished) Cardiovascular: regular rate, rhythm Abdomen/GI: normal bowel sounds, non tender, soft Back: normal inspection Extremities/Musculoskelatal: normal inspection, no calf tenderness Neurologic/Psych: alert, normal mood/affect, oriented x 3 Diagnostics Laboratory Results Results Past 24 Hours Test 10/03/16 20:10 10/03/16 21:30 Range/Units White Blood Count 12.19 4.8-10.8 K/uL Red Blood Count 4.87 4.7-6.1 M/uL Hemoglobin 13.9 14.0-18.0 g/dL Hematocrit 42.0 42-52 % Mean Corpuscular Volume 86.2 80-100 fL Mean Corpuscular Hemoglobin 28.5 25-34 pg Mean Corpuscular Hemoglobin Concent 33.1 32-36 g/dl Platelet Count 470 130-400 K/uL Mean Platelet Volume 9.6 7.4-10.4 fL Neutrophils (%) (Auto) 67.6 % Lymphocytes (%) (Auto) 16.3 % Monocytes (%) (Auto) 12.2 % Eosinophils (%) (Auto) 3.0 % Basophils (%) (Auto) 0.4 % Neutrophils # (Auto) 8.23 1.4-6.5 K/uL Lymphocytes # (Auto) 1.99 1.2-3.4 K/uL Monocytes # (Auto) 1.49 0.11-0.59 K/uL Eosinophils # (Auto) 0.37 0-0.5 K/uL Basophils # (Auto) 0.05 0-0.2 K/uL RDW Standard Deviation 44.3 36.4-46.3 fL RDW Coefficient of Variation 14.1 11.5-14.5 % Immature Granulocyte % (Auto) 0.5 % Immature Granulocyte # (Auto) 0.06 0.00-0.02 K/uL Sodium Level 139 136-145 mmol/L Potassium Level 4.1 3.5-5.1 mmol/L Chloride Level 104 98-107 mmol/L Carbon Dioxide Level 26 21-32 mmol/L Anion Gap 9.0 3-11 mmol/L Blood Urea Nitrogen 14 7-18 mg/dl Creatinine 0.95 0.60-1.40 mg/dl Est Creatinine Clear Calc Drug Dose 81.0 ml/min Estimated GFR () 99.0 Estimated GFR (Non- 85.4 BUN/Creatinine Ratio 14.8 10-20 Random Glucose 188 70-99 mg/dl Calcium Level 9.0 8.5-10.1 mg/dl Total Bilirubin 0.2 0.2-1 mg/dl Aspartate Amino Transf (AST/SGOT) 34 15-37 U/L Alanine Aminotransferase (ALT/SGPT) 60 12-78 U/L Alkaline Phosphatase 135 45-117 U/L Troponin I < 0.015 0-0.045 ng/ml Pro-B-Type Natriuretic Peptide 81 0-900 pg/ml Total Protein 7.0 6.4-8.2 gm/dl Albumin 2.8 3.4-5.0 gm/dl Globulin 4.2 2.5-4.0 gm/dl Albumin/Globulin Ratio 0.7 0.9-2 Lactic Acid Level 1.0 0.4-2.0 mmol/L Diagnostic Radiology CHEST ONE VIEW PORTABLE CLINICAL HISTORY: Shortness of breath, chest pain and difficulty breathing. COMPARISON STUDY: Chest CT August 23, 2016, chest radiograph September 03, 2016 and PET/CT September 10, 2016. FINDINGS: There is no pneumothorax or pleural effusion. A right infrahilar mass is better depicted on PET/CT of September 10, 2016. Right lower lobe airspace opacity is present. There is mild left lower lobe opacity. There is no evidence of pulmonary edema. Cardiomediastinal silhouette is stable. IMPRESSION: 1. Redemonstration of the right infrahilar mass which is suspicious for malignancy and better depicted on prior PET/CT. 2. Right lower lung opacity which could reflect pneumonia or atelectasis. 3. No evidence of pulmonary edema. CT ANGIOGRAPHY OF THE CHEST, PULMONARY EMBOLUS PROTOCOL CLINICAL HISTORY: Chest and back pain. Difficulty breathing. Lung cancer. COMPARISON STUDY: Chest CT August 23, 2016 and PET/CT September 10, 2016. TECHNIQUE: Following IV administration of 93 mL of Optiray-320, helical axial images of the chest were obtained utilizing the pulmonary embolus protocol. Maximal intensity projections and sagittal and coronal reformats were viewed on an independent 3D workstation. IV contrast was administered without complication. CT DOSE: 514.09 mGy.cm FINDINGS: No pulmonary emboli are identified although the segmental and subsegmental pulmonary arteries are suboptimally assessed due to respiratory motion. Right lower lobe and right middle lobe pulmonary arteries are narrowed likely by the mass shown on prior PET/CT of September 10, 2016. This right infrahilar mass is obscured by adjacent airspace opacity which has progressed since prior PET/CT of September 10, 2016. There is also extensive right middle lobe airspace opacity. The right lower lobe bronchus is occluded. The bronchus intermedius and right middle lobe bronchus is also occluded. Several mildly enlarged right hilar and subcarinal lymph nodes are noted. Index right hilar node measures 1.3 cm. Index subcarinal node measures 1.5 cm. There is moderate emphysema. No pneumothorax is present. No suspicious osseous lesion is present. The abdomen and pelvis is unremarkable. The heart is mildly enlarged. There is no pericardial effusion. IMPRESSION: 1. No pulmonary emboli identified although segmental and subsegmental pulmonary arteries are suboptimally assessed due to respiratory motion. Narrowed right middle lobe and lower lobe pulmonary arteries due to the known right infrahilar mass. 2. Interval increase in right lower lobe and middle lobe airspace opacity since PET/CT of September 10, 2016. This airspace opacity obscures the known right infrahilar mass. The opacity could reflect pneumonia or postradiation pneumonitis. Occluded right lower lobe and middle lobe bronchi due to the known mass. 3. Mildly enlarged right hilar and subcarinal lymph nodes. 4. Moderate emphysema. Impression Assessment and Plan 58-year-old male with a past medical history of diabetes, stage III lung cancer presented to the ER with complaints of excision shortness of breath and sharp back pain which started about 6:30 PM last night which were worse as he laid down on his bed. Associated with sharp pain radiating to the back, fevers and chills Post obstructive pneumonia: - Chest x-ray: 1. Redemonstration of the right infrahilar mass which is suspicious for malignancy and better depicted on prior PET/CT. 2. Right lower lung opacity which could reflect pneumonia or atelectasis. 3. No evidence of pulmonary edema. - Chest CTA:1. No pulmonary emboli identified although segmental and subsegmental pulmonary arteries are suboptimally assessed due to respiratory motion. Narrowed right middle lobe and lower lobe pulmonary arteries due to the known right infrahilarmass. 2. Interval increase in right lower lobe and middle lobe airspace opacity since PET/CT of September 10, 2016. This airspace opacity obscures the known right infrahilar mass. The opacity could reflect pneumonia or postradiation pneumonitis. Occluded right lower lobe and middle lobe bronchi due to the known mass. 3. Mildly enlarged right hilar and subcarinal lymph nodes. 4. Moderate emphysema. - Continue Vanco mycin, Zosyn - Continue albuterol as needed Stage III lung cancer: - Recent diagnosis, treatment not started yet - Consider CT surgery consult and oncology consult after improvement of pneumonia Diabetes: - Insulin sliding-scale Hypertension: - Continue propranolol, Zestril Hyperlipidemia: -Continue simvastatin DO NOT RESUSCITATE DVT prophylaxis: SCDs Heparin subcutaneous Disposition: Admitted to telemetry Attending Addendum: I physically seen and examined this patient, have supervised the medical residents activities, and agree with the H&P as noted above with the following exceptions: NONE The patient is awake, well-developed and adequately nourished, alert and oriented 3, normocephalic and atraumatic, lying in bed and in no acute distress. HEENT--PERRL, EOMI, mucous membranes and oropharynx normal. Neck--supple, no JVD or bruits, thyroid normal, trachea midline, no adenopathy. Heart--normal S1 and S2, no extra beats, no murmurs, rubs or gallops. Lungs--coarse breath sounds bilaterally, diminished at right base, no respiratory distress, no accessory muscle use. Abdomen--normal bowel sounds and soft, nontender and nondistended, no hernias or masses, no organomegaly. Extremities--no cyanosis, clubbing or edema. There are good distal pulses b/l. Dermatologic--normal skin turgor, normal color, warm and dry, no abnormal lymph nodes, no rash. Neurologic--cranial nerves II through XII grossly intact. Rheumatologic--normal range of motion, nontender muscles and joints. Psychiatric--normal affect. Assessment and Plan: 1. Right infrahilar mass/postobstructive right middle and right lower lobe pneumonia--the patient be admitted to the telemetry unit for close oxygen monitoring. Place on IV vancomycin per renal dosing, and Zosyn 3.375 mg IV every 8 hours. Duonebs to 4 hours while awake and every 2 hours when necessary. Solu-Medrol IV. CT shows occlusion of right middle lobe and right lower lobe bronchi, and will therefore consult thoracic surgery for biopsy/bronchoscopy. Following with Dr. Bronson from radiation oncology. Level of Care Telemetry Resuscitation Status DO NOT RESUSCITATE VTE Prophylaxis VTE Risk Assessment Done? Y/N: Yes Risk Level: Moderate Given or contraindicated: Unfractionated heparin SQ
[2016-10-04] MEDS ORDERED: PIPERACILL/TAZOBAC IV 3.375 GM in DEXTROSE 5% 100ML IV STA (02:55)
[2016-10-04] MEDS ORDERED: VANCOMYCIN INJ 2,000 MG in SODIUM CHLORIDE 0.9% 500ML 500 ML IV STA (02:55)
[2016-10-04] MEDS ORDERED: DEXTROSE 50% 50 ML SYR IV PRN (03:00)
[2016-10-04] MEDS ORDERED: GLUCAGON FOR INJ 1 MG VIAL SQ PRN (03:00)
[2016-10-04] MEDS ORDERED: GLUCOSE 10 TABS/TUBE PO PRN (03:00)
[2016-10-04] MEDS ORDERED: GLUCOSE 40% GEL 15 GM TUBE PO PRN (03:00)
[2016-10-04] MEDS ORDERED: PIPERACILL/TAZOBAC CONSULT ACTIVE PRN (03:30)
[2016-10-04] MEDS ORDERED: VANCOMYCIN CONSULT ACTIVE PRN (03:30)
[2016-10-04 06:14] LABS: HEMATOCRIT 37.2 % (42-52); MEAN CELL VOLUME 84.7 fL (80-100); MEAN CORPUSCULAR HEMOGLOBIN 28.9 pg (25-34); MEAN CORPUSCULAR HGB CONC 34.1 g/dl (32-36); MEAN PLATELET VOLUME 8.6 fL (7.4-10.4); PLATELET COUNT 386 K/uL (130-400); RED BLOOD COUNT 4.39 M/uL (4.7-6.1); WHITE BLOOD COUNT 11.94 K/uL (4.8-10.8)
[2016-10-04 06:49] LABS: BUN/CREATININE RATIO 12.6 (10-20); CALCIUM 8.4 mg/dl (8.5-10.1); CREATININE 0.74 mg/dl (0.60-1.40)
[2016-10-04 07:13] LABS: INR 1.1 (0.9-1.1)
--- NOTE | 2016-10-04 07:29 | Family Medicine Progress Note ---
Progress Note Date of Service Oct 04, 2016. Subjective Pt evaluation today including: conversation w/ patient, conversation w/ family , physical exam, chart review, lab review, review of studies, review of inpatient medication list Pain: Pain in back still present; patient had just been given morphine PO Intake: Tolerating regular diet well Voiding: no voiding problems Pleasant 60 yo male reports improved breathing since arrival at ER last night. He still reports back pain, and had received morphine IV about 15 min prior He asks if he could receive a different pain med, such as hydromorphone, which he states he uses at home for migraines. He would like this to manage pain better and to be able to get some sleep. Medications Current Inpatient Medications Medications (Trade) Dose Ordered Sig/Jeromy Route Start Time Stop Time Status Last Admin Dose Admin Ioversol (Optiray 320) 125 ml UD PRN IV 10/03/16 21:30 10/07/16 21:29 Acetaminophen (Tylenol Tab) 650 mg Q4H PRN PO 10/04/16 02:30 11/03/16 02:29 Al Hydrox/Mg Hydrox/Simethicone (Maalox Max Susp) 15 ml Q4H PRN PO 10/04/16 02:30 11/03/16 02:29 Ondansetron HCl (Zofran Inj) 4 mg Q6H PRN IV 10/04/16 02:30 11/03/16 02:29 Polyethylene (Miralax Powder Packet) 17 gm DAILY PRN PO 10/04/16 02:30 11/03/16 02:29 Piperacillin Sod/ Tazobactam Sod 3.375 gm/Dextrose 115 ml @ 28.75 mls/ hr Q8H IV 10/04/16 10:00 10/11/16 09:59 Albuterol Sulfate (Ventolin 0.083% 2.5MG/3ML Neb) 2.5 mg Q6R PRN INH 10/04/16 02:30 11/03/16 02:29 Aspirin (Ecotrin Tab) 325 mg DAILY PO 10/04/16 09:00 11/03/16 08:59 10/04/16 07:58 325 MG EZETIMIBE (Zetia Tab) 10 mg QAM PO 10/04/16 09:00 11/03/16 08:59 10/04/16 07:58 10 MG Lisinopril (Zestril Tab) 10 mg QAM PO 10/04/16 09:00 11/03/16 08:59 10/04/16 07:58 10 MG Propranolol HCl (Inderal LA Cap) 80 mg QAM PO 10/04/16 09:00 11/03/16 08:59 10/04/16 07:58 80 MG Simvastatin (Zocor Tab) 80 mg QAM PO 10/04/16 09:00 11/03/16 08:59 10/04/16 07:57 80 MG Miscellaneous Information (Order Awaiting Action) 1 ea QS N/A 10/04/16 08:00 11/03/16 07:59 Insulin Aspart (novoLOG ASPART) SLIDING SCALE G... ACHS SC 10/04/16 06:30 11/03/16 06:59 10/04/16 08:01 1 UNITS Morphine Sulfate (MoRPHine SULFATE INJ) 2 mg Q4H PRN IV 10/04/16 02:30 10/18/16 02:29 10/04/16 08:03 2 MG Glucose (Glucose 40% Gel) 15-30 GRAMS 15 GRAMS... UD PRN PO 10/04/16 03:00 11/03/16 02:59 Glucose (Glucose Chew Tab) 4-8 Tablets 4 Tabl... UD PRN PO 10/04/16 03:00 11/03/16 02:59 Dextrose (Dextrose 50% 50ML Syringe) 25-50ML OF 50% DW IV FOR... UD PRN IV 10/04/16 03:00 11/03/16 02:59 Glucagon (Glucagon Inj) 1 mg UD PRN SQ 10/04/16 03:00 11/03/16 02:59 Piperacillin Sod/ Tazobactam Sod (Consult) 1 ea UD PRN N/A 10/04/16 03:30 11/03/16 03:29 Vancomycin HCl (Consult) 1 ea UD PRN N/A 10/04/16 03:30 11/03/16 03:29 Heparin Sodium (Porcine) (Heparin Sq 5000 Unit/0.5ml) 5,000 unit Q8 SQ 10/04/16 14:00 11/03/16 13:59 Objective Vital Signs Date Time Temp Pulse Resp B/P (MAP) Pulse Ox O2 Delivery O2 Flow Rate FiO2 10/04/16 17:17 Room Air 10/04/16 16:05 36.8 60 18 118/66 (83) 95 Room Air 10/04/16 12:00 94 Room Air 10/04/16 11:19 36.7 64 18 116/70 (85) 94 Room Air 10/04/16 08:00 96 Room Air 10/04/16 07:52 36.8 63 18 124/75 (91) 96 Room Air 10/04/16 03:30 37.0 68 28 138/76 98 Room Air 10/04/16 02:31 72 24 136/78 98 10/04/16 02:06 72 24 136/78 98 Room Air 10/04/16 00:19 79 24 141/77 93 Room Air 10/04/16 00:05 77 Physical Exam General Appearance: + mild distress Eyes: normal inspection, PERRL, EOMI ENT: normal ENT inspection, hearing grossly normal, pharynx normal Neck: supple, no JVD Respiratory/Chest: chest non-tender, no accessory muscle use, + decreased breath sounds (on right), + crackles (on RLL) Cardiovascular: regular rate, rhythm, no edema, no JVD, no murmur Abdomen: normal bowel sounds, non tender, soft, no pulsatile mass Extremities: normal range of motion, no pedal edema, no calf tenderness 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, no motor/sensory deficits, alert, normal mood/affect, oriented x 3 Skin: normal color, warm/dry, no rash Laboratory Results 10/04/16 05:57 10/04/16 05:57 Test 10/03/16 20:10 10/03/16 21:30 10/04/16 05:57 10/04/16 06:55 Immature Granulocyte % (Auto) 0.5 % White Blood Count 12.19 K/uL (4.8-10.8) Red Blood Count 4.87 M/uL (4.7-6.1) 4.39 M/uL (4.7-6.1) Hemoglobin 13.9 g/dL (14.0-18.0) Hematocrit 42.0 % (42-52) Mean Corpuscular Volume 86.2 fL (80-100) 84.7 fL (80-100) Mean Corpuscular Hemoglobin 28.5 pg (25-34) 28.9 pg (25-34) Mean Corpuscular Hemoglobin Concent 33.1 g/dl (32-36) 34.1 g/dl (32-36) Platelet Count 470 K/uL (130-400) Mean Platelet Volume 9.6 fL (7.4-10.4) 8.6 fL (7.4-10.4) Neutrophils (%) (Auto) 67.6 % Lymphocytes (%) (Auto) 16.3 % Monocytes (%) (Auto) 12.2 % Eosinophils (%) (Auto) 3.0 % Basophils (%) (Auto) 0.4 % Neutrophils # (Auto) 8.23 K/uL (1.4-6.5) Lymphocytes # (Auto) 1.99 K/uL (1.2-3.4) Monocytes # (Auto) 1.49 K/uL (0.11-0.59) Eosinophils # (Auto) 0.37 K/uL (0-0.5) Basophils # (Auto) 0.05 K/uL (0-0.2) Immature Granulocyte # (Auto) 0.06 K/uL (0.00-0.02) Total Bilirubin 0.2 mg/dl (0.2-1) Aspartate Amino Transf (AST/SGOT) 34 U/L (15-37) Alanine Aminotransferase (ALT/SGPT) 60 U/L (12-78) Alkaline Phosphatase 135 U/L (45-117) Troponin I < 0.015 ng/ml (0-0.045) Pro-B-Type Natriuretic Peptide 81 pg/ml (0-900) Total Protein 7.0 gm/dl (6.4-8.2) Albumin 2.8 gm/dl (3.4-5.0) Globulin 4.2 gm/dl (2.5-4.0) Albumin/Globulin Ratio 0.7 (0.9-2) Lactic Acid Level 1.0 mmol/L (0.4-2.0) RDW Standard Deviation 42.2 fL (36.4-46.3) RDW Coefficient of Variation 13.7 % (11.5-14.5) Anion Gap 9.0 mmol/L (3-11) Est Creatinine Clear Calc Drug Dose 106.9 ml/min Estimated GFR () 114.6 Estimated GFR (Non- 98.9 BUN/Creatinine Ratio 12.6 (10-20) Calcium Level 8.4 mg/dl (8.5-10.1) Prothrombin Time 12.0 SECONDS (9.0-12.0) Prothromb Time International Ratio 1.1 (0.9-1.1) Test 10/04/16 07:38 Bedside Glucose 106 mg/dl (70-99) Assessment and Plan Xavier is a 58-year-old male who presents with dyspnea on exertion and sharp back pain, diagnosed on CT and CXR as obstructive pneumonia PMH is significant for diabetes and recent dx of stage III lung cancer Post obstructive pneumonia - Continue Vancomycin, Zosyn - Continue albuterol as needed Stage III lung cancer - Recent diagnosis, treatment not started yet - Main goal is to prevent this (post obstructive pneumonia) from happening again once this episode has resolved. - Consider CT surgery consult and oncology consult after improvement of pneumonia - Will contact Dr. Bronson to determine what the plan is for radiation therapy; and how soon it would have an effect on the size of his tumor - Chemo probably not appropriate at this point with active infection Back pain - managed with morphine prn - patient has requested hydromorphone which he takes at home - no record of hydromorphone, but hydrocodone is on home med list - Give hydrocodone before bed tonight - Will reassess tomorrow. Diabetes: - Insulin sliding-scale - Watch sugars and adjust accordingly Hypertension: - Continue propranolol, Zestril Hyperlipidemia: -Continue simvastatin Code Status: DO NOT RESUSCITATE VTE: SCDs,Heparin subcutaneous Dispo: Transferred from telemetry to med/surg Resident Physician Supervision Note: I interviewed and examined the patient. Discussed with Dr. Masters and agree with findings and plan as documented in the note. Any exceptions or clarifications are listed here: None Documented By: Uday Garibay feeling better breathing easier. for XRT to start soon but hadn't actually gotten things scheduled yet. all other ROS otherwise negative except for as above vitals noted nad R lung diminished air maybe faint rales L fairly clear. post obstructive pneumonia- have to treat as possible HAP bacteria due to exposures - hence vanco and zosyn. improving -- probably can transition to PO and dc tomorrow with ongoing improvmenet. high risk for recurrence - will d/w XRT and interventional pulmonary in regards to XRT and ??stenting to reduce risk of repeated infections. back pain - symptomatic care for now, given stage 3 cancer and lung CA frequently mets to bone - low threshold to image if pain appearing hard to control DVT proph - change to lovenoxSQ Resident Tracking Resident Involvement: Resident Care Provided Care Provided: Adult Hospital Medicine
[2016-10-04] MEDS: ANORO ELLIPTA~ORDER AWAITING ACTION SCH ×2 (07:43→16:00)
[2016-10-04] MEDS: SIMVASTATIN 80 MG TAB PO SCH (07:57)
[2016-10-04] MEDS: LISINOPRIL 10 MG TAB PO SCH (07:58)
[2016-10-04] MEDS: EZETIMIBE 10MG TAB PO SCH (07:58)
[2016-10-04] MEDS: ASPIRIN 325 MG ECTAB PO SCH (07:58)
[2016-10-04] MEDS: PROPRANOLOL HCL 80 MG LA CAP PO SCH (07:58)
[2016-10-04] MEDS: INSULIN ASPART 100 UNITS/ML 3 ML PEN SC SCH ×4 (08:01→20:36)
[2016-10-04] MEDS ORDERED: VANCOMYCIN INJ 1,000 MG in SODIUM CHLORIDE 0.9% 250ML 250 ML IV SCH (09:00)
--- NOTE | 2016-10-04 10:43 | Pharmacy Progress Note ---
Pharmacy Abx Initial Consult Date of Service Oct 04, 2016. Pharmacy Dosing Scope Date of Consult: 10/04/16 Consultation requested by: Dr. Vu Pharmacy is consulted to initiate Vancomycin and Zosyn IV dosing therapy, order appropriate labs and adjust drug dose/frequency. Subjective The patient is a 60 year old male admitted on Oct 04, 2016 at 02:01 with SOB and sharp back pain, recent Stage III lung cancer diagnosis 1 week ago, no treatment received at this time. Objective Height (Feet): 5 Height (Inches): 10.00 Weight (Kilograms): 82.000 Vital Signs (Past 12Hrs) Vital Signs Past 12 Hours Date Time Temp Pulse Resp B/P (MAP) Pulse Ox O2 Delivery O2 Flow Rate FiO2 10/04/16 08:00 96 Room Air 10/04/16 07:52 36.8 63 18 124/75 (91) 96 Room Air 10/04/16 03:30 37.0 68 28 138/76 98 Room Air 10/04/16 02:31 72 24 136/78 98 10/04/16 02:06 72 24 136/78 98 Room Air 10/04/16 00:19 79 24 141/77 93 Room Air 10/04/16 00:05 77 10/03/16 22:40 76 25 Lab Results (24Hrs) Laboratory Tests (24 Hours) Item Value Date Time Creatinine 0.95 mg/dl 10/03/162009 Creatinine 0.74 mg/dl 10/04/16 0557 Est Creatinine Clear Calc Drug Dose 81.0 ml/min 10/03/162009 Est Creatinine Clear Calc Drug Dose 106.9 ml/min 10/04/16 0557 Test 10/03/16 20:10 10/03/16 21:30 10/04/16 05:57 White Blood Count 12.19 K/uL (4.8-10.8) H 11.94 K/uL (4.8-10.8) H Red Blood Count 4.87 M/uL (4.7-6.1) Hemoglobin 13.9 g/dL (14.0-18.0) L Hematocrit 42.0 % (42-52) Mean Corpuscular Volume 86.2 fL (80-100) Mean Corpuscular Hemoglobin 28.5 pg (25-34) Mean Corpuscular Hemoglobin Concent 33.1 g/dl (32-36) Platelet Count 470 K/uL (130-400) H Mean Platelet Volume 9.6 fL (7.4-10.4) Neutrophils (%) (Auto) 67.6 % Lymphocytes (%) (Auto) 16.3 % Monocytes (%) (Auto) 12.2 % Eosinophils (%) (Auto) 3.0 % Basophils (%) (Auto) 0.4 % Neutrophils # (Auto) 8.23 K/uL (1.4-6.5) H Lymphocytes # (Auto) 1.99 K/uL (1.2-3.4) Monocytes # (Auto) 1.49 K/uL (0.11-0.59) H Eosinophils # (Auto) 0.37 K/uL (0-0.5) Basophils # (Auto) 0.05 K/uL (0-0.2) Lactic Acid Level 1.0 mmol/L (0.4-2.0) Risk Factors for Resistance * Stage III lung cancer, untreated at this time, new diagnosis 1 week ago Assessment & Plan Assessment 60 year old male admitted with SOB, sharp back pain, Stage III lung cancer. Plan IV Vancomycin and Zosyn for treatment of post obstructive pneumonia. Vancomycin IV * Loading dose: 2000 mg (25 mg/kg) * Maintenance dose: 1300 mg IV (15.8 mg/kg) every 12 hours * Goal trough level for pneumonia : 15 to 20 mcg/mL * Trough level ordered for 10/05/16 prior to 4th total dose * Estimated pharmacokinetic parameters: T1/2 = 9.6hrs, Brooks = 0.072/hr, Vd = 0.7L /Kg Piperacillin/tazobactam * 3.375 g bolus administered over 30 minutes, then 3.375 g IV extended infusion every 8 hours for CrCl greater than 20 mL/min Pharmacy will continue to follow and will adjust dose/frequency as necessary. Thank you.
[2016-10-04] MEDS: PIPERACILL/TAZOBAC IV 3.375 GM in DEXTROSE 5% 100ML 100 ML IV SCH ×2 (11:00→17:31)
[2016-10-04] MEDS ORDERED: HEPARIN SOD 5000 UNIT/0.5 ML CARP SQ SCH (14:00)
[2016-10-04] MEDS: VANCOMYCIN INJ 1,300 MG in SODIUM CHLORIDE 0.9% 250ML 250 ML IV SCH (15:59)
[2016-10-04] MEDS ORDERED: HYDROCODONE/ACETAMOPHEN 5/325MG TAB PO ONE (17:30)
[2016-10-04] MEDS: ENOXAPARIN 40 MG/0.4 ML SYR SQ SCH (20:38)
[2016-10-04] MEDS ORDERED: HYDROCODONE/ACETAMOPHEN 5/325MG TAB PO PRN (21:00)
[2016-10-04] MEDS ORDERED: INSULIN GLARGINE SOLOSTAR 100 UNITS/ML 3 ML PEN SC SCH (21:00)
[2016-10-05] MEDS: VANCOMYCIN INJ 1,300 MG in SODIUM CHLORIDE 0.9% 250ML 250 ML IV SCH (01:50)
[2016-10-05] MEDS: PIPERACILL/TAZOBAC IV 3.375 GM in DEXTROSE 5% 100ML 100 ML IV SCH ×2 (01:50→10:19)
[2016-10-05 05:43] LABS: HEMATOCRIT 39.7 % (42-52); MEAN CELL VOLUME 85.2 fL (80-100); MEAN CORPUSCULAR HEMOGLOBIN 28.5 pg (25-34); MEAN CORPUSCULAR HGB CONC 33.5 g/dl (32-36); PLATELET COUNT 412 K/uL (130-400); RED BLOOD COUNT 4.66 M/uL (4.7-6.1); WHITE BLOOD COUNT 10.63 K/uL (4.8-10.8)
[2016-10-05 06:12] LABS: BUN/CREATININE RATIO 15.3 (10-20); CALCIUM 8.5 mg/dl (8.5-10.1); CREATININE 0.71 mg/dl (0.60-1.40); POTASSIUM 4.3 mmol/L (3.5-5.1)
[2016-10-05] MEDS: EZETIMIBE 10MG TAB PO SCH (07:57)
[2016-10-05] MEDS: SIMVASTATIN 80 MG TAB PO SCH (07:57)
[2016-10-05] MEDS: LISINOPRIL 10 MG TAB PO SCH (07:57)
[2016-10-05] MEDS: ASPIRIN 325 MG ECTAB PO SCH (07:58)
[2016-10-05] MEDS: ANORO ELLIPTA~ORDER AWAITING ACTION SCH ×2 (07:59)
[2016-10-05] MEDS: PROPRANOLOL HCL 80 MG LA CAP PO SCH (07:59)
[2016-10-05 08:00] VITALS: O2SAT 96
[2016-10-05] MEDS: INSULIN ASPART 100 UNITS/ML 3 ML PEN SC SCH ×2 (08:04→12:49)
[2016-10-05 08:21] VITALS: BP 134/73; PULSE 60; TEMP 36.6; O2SAT 94
--- NOTE | 2016-10-05 10:52 | Discharge Instructions ---
Discharge Instructions Date of Service Oct 05, 2016. Admission Reason for Admission: Postobstructive Pneumonia Discharge Discharge Diagnosis / Problem: Postobstructive pneumonia Discharge Goals Goal(s): Improve function Activity Recommendations Activity Limitations: per Instructions/Follow-up section . Instructions / Follow-Up Instructions / Follow-Up You were admitted for a pneumonia that resulted from a blockage of your airway related to your recent lung cancer diagnosis. You responded well to the IV antibiotics that we gave you, but we will still discharge you on some oral antibiotics to ensure your pneumonia has resolved. The two antibiotics are Bactrim (trimethoprim sulfamethoxazole) and Augmentin ( amoxacillin/clavulonic acid) Take each of these twice daily for 10 days. You will be following up with the radiation oncologists on Saturday, October 10 at 5:40 pm to start chemo and radiation. The radiation is expected to shrink your tumor enough to prevent a pneumonia from recurring. We have spoken with one of the lung doctors (Dr. Velásquez), with whom we discussed placing a stent to prevent the tumor from obstructing your airway. After discussing this with the oncologists, we will hold off on placing a stent until after your radiation to see how well the tumor responds. Dr. Velásquez is aware of the situation. If your symptoms worsen, please return to the ED or your PCP. Follow up with your PCP within 1 week of being discharged from the hospital. Current Hospital Diet Patient's current hospital diet: Diabetes Type 2 Diet Discharge Diet Recommended Diet: Diabetes Type 2 Diet Pending Studies Studies pending at discharge: no Medical Emergencies . Who to Call and When: Medical Emergencies: If at any time you feel your situation is an emergency, please call 911 immediately. . Non-Emergent Contact Non-Emergency issues call your: Primary Care Provider . . "Provider Documentation" section prepared by Danay Sandoval. . VTE Core Measure Inpt VTE Proph given/why not?: Unfractionated heparin SQ
[2016-10-05] MEDS ORDERED: AMOX875T PO (11:19)
[2016-10-05] MEDS ORDERED: SULF800T23 PO (11:19)
[2016-10-05] MEDS: ENOXAPARIN 40 MG/0.4 ML SYR SQ SCH (12:00)
[2016-10-05 12:34] VITALS: BP 134/73; PULSE 60; TEMP 36.6; O2SAT 94
[2016-10-05] MEDS ORDERED: VANCOMYCIN TROUGH ONE (13:30)
--- NOTE | 2016-10-05 18:16 | Discharge Summary ---
Discharge Summary Date of Service Oct 05, 2016. (Danay Sandoval M.D.) Discharge Summary Admission Date: Oct 04, 2016 at 02:01 Discharge Date: Oct 05, 2016 Discharge Disposition: Home Principal Diagnosis: Post-Obstructive Pneumonia Procedures: CXR IMPRESSION: 1. Redemonstration of the right infrahilar mass which is suspicious for malignancy and better depicted on prior PET/CT. 2. Right lower lung opacity which could reflect pneumonia or atelectasis. 3. No evidence of pulmonary edema. CTA Chest/Thorax IMPRESSION: 1. No pulmonary emboli identified although segmental and subsegmental pulmonary arteries are suboptimally assessed due to respiratory motion. Narrowed right middle lobe and lower lobe pulmonary arteries due to the known right infrahilar mass. 2. Interval increase in right lower lobe and middle lobe airspace opacity since PET/CT of September 10, 2016. This airspace opacity obscures the known right infrahilar mass. The opacity could reflect pneumonia or postradiation pneumonitis. Occluded right lower lobe and middle lobe bronchi due to the known mass. 3. Mildly enlarged right hilar and subcarinal lymph nodes. 4. Moderate emphysema Consultations: Radiation Oncology, Pulmonology (Danay Sandoval M.D.) Medication Reconciliation New Medications: Amoxicillin & Pot Clavulanate (Augmentin 875-125 mg) 1 Tab Tab 1 TAB PO BID for 10 Days, #20 TAB Sulfa/Trimethoprim (Bactrim Ds 800MG/160MG) Tab 1 TAB PO BID for 10 Days, #20 TAB Continued Medications: Albuterol Sulfate (Proventil Hfa) 108 Mcg/Act Aer 2 PUFFS INH QID PRN for RN Aspirin (Aspirin Ec) 325 Mg Tab 325 MG PO DAILY Ezetimibe (Zetia) 10 Mg Tab 10 MG PO QAM Hydrocodone/Acetaminophen 5MG/325MG (Bath 5MG/325MG) Unknown Strength Tab 1 TAB PO DAILY PRN for Pain, TAB PRN PAIN Insulin Aspart (Novolog) 100 Units/Ml Inj SC UD TAKE INSULIN TID WITH MEALS PER SLIDING SCALE Insulin Glargine (Lantus) 100 Unit/Ml Inj 65 SC QPM, VIAL Lisinopril (Zestril) 10 Mg Tab 10 MG PO QAM Metformin Hcl (Glucophage) 500 Mg Tab 500 MG PO QPM, TAB TAKES PRN PER PT Propranolol Hcl (Propranolol Hcl Er) 80 Mg Cap 80 MG PO QAM Simvastatin (Zocor) 80 Mg Tab 80 MG PO QAM Umeclidinium-Vilanterol (Anoro Ellipta 62.5-25 Mcg/INH) 1 Aer Aer 1 PUFF INH QPM Discharge Exam Review of Systems: Constitutional: No fever, No chills, No sweats, No weight loss, No weakness , No fatigue, No problem reported Eyes: No worsening of vision, No eye pain, No redness, No discharge, No diplopia, No problem reported ENT: No hearing loss, No unusual epistaxis, No nasal symptoms, No sore throat, No tinnitus, No dental problems, No trouble swallowing, No problem reported Respiratory: + cough, + dyspnea on exertion, No sputum, No wheezing, No shortness of breath, No dyspnea at rest, No hemoptysis, No problem reported Cardiovascular: No chest pain, No orthopnea, No PND, No edema, No claudication, No palpitations, No problem reported Abdomen: No pain, No nausea, No vomiting, No diarrhea, No constipation, No GI bleeding, No problem reported Musculoskeletal: + joint pain (Chronic back pain), No muscle pain, No swelling, No calf pain, No problem reported Genitourinary - Male: No hematuria, No dysuria, No urinary frequency, No urinary urgency, No urinary hesitancy, No urinary retention, No urinary incontinence, No penile discharge, No lesions, No impotence, No problem reported Neurologic: No memory loss, No paralysis, No weakness, No numbness/tingling , No vertigo, No balance problems, No problem reported Psychiatric: No depression symptoms, No anhedonism, No anxiety, No insomnia , No substance abuse, No problem reported Endocrine: No fatigue, No excessive thirst, No excessive urination, No problem reported Hematologic / Lymphatic: No abnormal bleeding/bruising, No clotting problems , No swollen lymph nodes, No night sweats, No problem reported Integumentary: No rash, No itch, No new/changing skin lesions, No color change, No bleeding, No problem reported Physical Exam: General Appearance: no apparent distress Eyes: normal inspection, PERRL, EOMI, sclerae normal ENT: hearing grossly normal, pharynx normal Neck: supple, no adenopathy, no JVD, no carotid bruits, trachea midline Respiratory/Chest: chest non-tender, no respiratory distress, no accessory muscle use, + decreased breath sounds (right lower lobe), + wheezing (improving expiratory wheeze in RLL) Cardiovascular: regular rate, rhythm, no edema, no murmur, normal peripheral pulses Abdomen / GI: normal bowel sounds, non tender, soft Extremities: normal inspection, no pedal edema, normal range of motion, non- tender 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 - Continue albuterol as needed Stage III lung cancer - Recent diagnosis, treatment not started yet - Main goal is to prevent this (post obstructive pneumonia) from happening again once this episode has resolved. - Contacted rad-onc (Dr. Barnes) to discuss what the plan is for radiation therapy; how soon it would have an effect on the size of his tumor - Also contacted Dr. Velásquez to discuss stent placement - Plan is to start chemo/radiation next SaturdayOctober 10 with expectation that tumor will shrink enough to open airway more. - Stent placement will be plan B, hold off until we see how well patient responds to radiation - Dr. Velásquez aware. Back pain - managed with morphine prn - Gave hydrocodone at night x1 - Pain improved; patient states this is chronic and exacerbated by stress Diabetes: - Insulin sliding-scale - Watch sugars and adjust accordingly Hypertension: - Continue propranolol, Zestril Hyperlipidemia: -Continue simvastatin Total Time Spent: Greater than 30 minutes This includes examination of the patient, discharge planning, medication reconciliation, and communication with other providers. (Danay Sandoval M.D.) Resident Physician Supervision Note: I interviewed and examined the patient. Discussed with Dr. Sandoval and agree with findings and plan as documented in the note. Any exceptions or clarifications are listed here: None Documented By: Uday Garibay feeling better wants to go home. discussed with interventional pulmonary and if obstruction appears to be an ongoing issue, likely would be able to stent. dr sandoval d/w XRT - they feel treatment likely to make impact quickly enough as to not need stenting. all other ROS otherwise negative except for as above vitals noted nad breathing unlabored no pallor or icterus obstructive pneumonia - stable for home - due to HAP pathogens - dual abx as above. XRT to start this coming week. interventional pulmonary if needed//if not improving/recurrent pnuemonia despite treatment (Uday Garibay, D.O.) Discharge Instructions Please refer to the electronic Patient Visit Report (Discharge Instructions) for additional information. (Danay Sandoval M.D.) Additional Copies To Rolly Conde M.D. Resident Tracking Resident Involvement: Resident Care Provided Care Provided: Adult Hospital Medicine (Danay Sandoval M.D.)
== END 2016-10-05 14:21 | disposition home health service (06) | DRG 194 ==
LOC: C.EDB 20:01 → C.MED 10-04 02:01 → ENRESERV 10-04 02:13
PROVIDERS: ADMIT Family Medicine; ATTEND Family Medicine
DX: J18.8 Other pneumonia, unspecified organism (principal); C34.92 Malignant neoplasm of unspecified part of left bronchus or lung; E11.9 Type 2 diabetes mellitus without complications; I10 Essential (primary) hypertension; E78.5 Hyperlipidemia, unspecified; J44.9 Chronic obstructive pulmonary disease, unspecified; Z87.891 Personal history of nicotine dependence; Z79.82 Long term (current) use of aspirin; Z66 Do not resuscitate

== ENCOUNTER → 2016-11-12 | Day surgery (SDC) | payer OTHER ==
[2016-11-07 10:41] VITALS: BMI 24.0
[~2016-11-12] VITALS: Ht 177.8 cm; Wt 77.7 kg
[~2016-11-12] MED LIST changes: +AMOX1TAB43 PO; -ASPEC325 PO; +ASPI325T39 PO; +ATROPINE SULFATE 0.1 MG/ML 5ML SYR IV PRN; +CEFAZOLIN SOD 1 GM VIAL ONE; +DEXAMETHASONE SOD INJ 4 MG/ML VIAL ONE; +ESMOLOL HCL 10 MG/ML 10 ML VIAL ONE; +EpHEDrine SULFATE INJ 50 MG/ML AMP IV PRN; +FENTANYL CITRATE INJ 50 MCG/1 ML 2 ML VIAL IV PRN; +FENTANYL CITRATE INJ 50 MCG/1 ML 2 ML VIAL ONE; +FLUMAZENIL 0.1 MG/1 ML 10 ML VIAL IV PRN; -GLC/500 PO; +GLYCOPYRROLATE INJ 0.2 MG/ML VIAL ONE; -HMLI SC; +HYDR-5688 PO; +HYDROmorphone INJ 2 MG/ML SYR/VIAL IV PRN; +LABETALOL HCL IV 5 MG/ML 20ML IV PRN; +LACTATED RINGER'S 1000ML 1,000 ML IV SCH; +LARYING-O-JET KIT (LTA) ONE; +LIDOCAINE HCL 2% 2 ML VIAL (20MG/ML) ONE; +MEPERIDINE HCL 25 MG/ML CARP IV PRN; +MIDAZOLAM HCL 1 MG/ML 2ML VIAL ONE; +MoRPHine SULFATE 2 MG/ML CARP IV PRN; +NALOXONE HCL 0.4 MG/1 ML VIAL/CARP IV PRN; +NEOSTIGMINE METHYLSULFATE 5 MG/5 ML SYR ONE; +NVLG SC; +OMEP20CA59 PO; +ONDANSETRON INJ 2 MG/ML 2 ML VIAL IV PRN; +ONDANSETRON INJ 2 MG/ML 2 ML VIAL ONE; +PHENYLEPHRINE 100MCG/ML 5ML SYR IV PRN; +PHENYLEPHRINE 100MCG/ML 5ML SYR ONE; +PRD10 PO; +PROPOFOL IV EMULSION 10 MG/ML 20 ML VIAL IV ONE; +ROCURONIUM BROMIDE 10 MG/ML 5 ML VIAL IV ONE; +TRAM-10 PO; +TRAMADOL HCL 50 MG TAB PO PRN
[2016-11-12 05:47] VITALS: PULSE 78; TEMP 36.7; Ht 177.8 cm; Wt 77.7 kg
--- NOTE | 2016-11-12 08:29 | Discharge Instructions ---
Discharge Instructions Date of Service Nov 12, 2016. Visit Reason for Visit: Non-Small Cell Lung Cancer Discharge Discharge Diagnosis / Problem: Non-Small Cell Lung Cancer Discharge Goals Goal(s): Learn about illness Activity Recommendations Activity Limitations: resume your previous activity (in 24 hours) Lifting Limitations: none Anesthesia . Post Anesthesia Instructions: If you have had General Anesthesia or IV Sedation: * Do not drive today. * Resume driving when surgeon permits. * Do not make important decisions or sign legal documents today. * Call surgeon for: 1. Temperature elevations greater than 101 degrees F. 2. Uncontrollable pain. 3. Excessive bleeding. 4. Persistent nausea and vomiting. 5. Medication intolerance (nausea, vomiting or rash). * For nausea and vomiting use only clear liquids such as: tea, soda, bouillon until nausea subsides, then gradually increase diet as tolerated. * If you have any concerns or questions, call your surgeon's office. If physician is unavailable and it is an emergency, call 911 or go to the nearest emergency room. . Instructions / Follow-Up Instructions / Follow-Up 1. Keep your scheduled appointment with Dr. Chappell on November 19, 2016 @ 11: 30. Diet Recommendations Recommended Home Diet: resume previous diet Procedures Procedures Performed: Video Mediastinoscopy with Biopsy Pending Studies Studies pending at discharge: no Medical Emergencies . Who to Call and When: Medical Emergencies: If at any time you feel your situation is an emergency, please call 911 immediately. . Non-Emergent Contact Non-Emergency issues call your: Surgeon Call Non-Emergent contact if: you have a fever, your pain is not controlled, wound has increased drainage . . "Provider Documentation" section prepared by Douglas Anderson. .
--- NOTE | 2016-11-12 09:12 | Anesthesiology Progress Note ---
Anesthesia Post Op Note Date & Time Nov 12, 2016 at 09:11 Vital Signs Pain Intensity: 2 Vital Signs Past 12 Hours Date Time Temp Pulse Resp B/P (MAP) Pulse Ox O2 Delivery O2 Flow Rate FiO2 11/12/16 09:04 74 14 96 11/12/16 09:04 75 14 11/12/16 09:01 136/74 11/12/16 08:59 85 24 99 11/12/16 08:59 85 24 11/12/16 08:55 142/80 11/12/16 08:54 77 20 11/12/16 08:54 78 20 96 11/12/16 08:50 144/78 11/12/16 08:49 74 16 11/12/16 08:49 75 16 99 11/12/16 08:45 140/85 11/12/16 08:44 36.0 87 17 140/85 97 Mask 10 11/12/16 08:44 87 14 95 11/12/16 08:44 88 14 11/12/16 05:47 36.7 78 20 Notes Mental Status: alert / awake / arousable, participated in evaluation Pt Amnestic to Procedure: Yes Nausea / Vomiting: adequately controlled Pain: adequately controlled Airway Patency, RR, SpO2: stable & adequate BP & HR: stable & adequate Hydration State: stable & adequate Anesthetic Complications: no major complications apparent
--- NOTE | 2016-11-12 09:23 | DIAGNOSTIC IMAGING REPORT ---
CHEST ONE VIEW PORTABLE CLINICAL HISTORY: 60 years-old Male presenting with s/p mediastinoscopy . TECHNIQUE: Portable upright AP view of the chest was obtained. COMPARISON: Chest x-ray from 10/03/[address] from 10/03/2016. FINDINGS: Cardiomediastinal silhouette normal. Decreased prominence of the previously noted right infrahilar density, which is not clearly definable on the current radiograph. Persistent although decreased right basilar opacity. No large effusion or pneumothorax. Osseous structures normal. Upper abdomen normal. IMPRESSION: 1. Significant interval decrease conspicuity of the previously noted right infrahilar mass. 2. Persistent although decreased right basilar opacity, possibly atelectasis, although given bronchial narrowing demonstrated on recent CT, aspiration or post obstructive consolidation are also possible. Electronically signed by: Herberth Palacios M.D. 11/12/2016 9:22 AM Dictated Date/Time: 11/12/2016 9:19 AM
[2016-11-12 09:30] VITALS: BP 148/81; PULSE 68; TEMP 36.5; O2SAT 93
--- NOTE | 2016-11-12 09:53 | OPERATIVE REPORT ---
DATE OF OPERATION: 11/12/2016 PREOPERATIVE DIAGNOSIS: Nonsmall cell lung carcinoma, right lower lobe, right middle lobe. POSTOPERATIVE DIAGNOSIS: Same. PROCEDURE: Staging video mediastinoscopy. SURGEON: Stanley Chappell MD HEALTH EDITOR: BJ Armas ANESTHESIA: General anesthesia endotracheal intubation. INDICATIONS FOR PROCEDURE AND FINDINGS: Xavier Cobian is a 60-year-old male who was found to have a nonsmall cell lung carcinoma involving his right middle and right lower lobe. I did an endobronchial ultrasound showed he had N2 disease. He has a stage III A lung carcinoma. We discussed this case at our multidisciplinary lung cancer conference. We elected to give him neoadjuvant chemotherapy and radiation and restaged him with mediastinoscopy. Should these nodes proved to be negative, then we will proceed with a lung resection. If they are positive, we will proceed with definitive chemotherapy and radiation. DESCRIPTION OF PROCEDURE: The patient brought to the operating room and laid in supine position. General anesthesia induced and endotracheal intubation was performed. After prepping and draping in usual sterile fashion, calling appropriate timeout and administering prophylactic antibiotics, incision was made 1 fingerbreadth above the sternal notch. Sharp and blunt dissection used to dissect down to the strap muscles, which were divided in the direction of their fibers just below the isthmus of the thyroid. Pretracheal plane was developed bluntly. Video mediastinoscope was placed and we had excellent visualization. The patient has a rather large level 4 node. I actually removed 3 separate level 4 nodes as well as a right level 2 node. We had minimal bleeding. I identified the azygos vein, but did not go below this. I biopsied 2 large separate level 7 nodes and a smaller level 4 node on the left. I really did not see a level 2 node. We had minimal bleeding. I did not use the cautery on the left side. We slowly withdrew the video mediastinoscope and there was very little in the way of bleeding. 3-0 Vicryl was used in running continuous fashion to reapproximate the strap muscles and 4-0 Monocryl was used in running subcuticular fashion to approximate the wound edges. He tolerated it well and was transported back to the post-anesthesia care unit in stable condition. I attest to the content of the Intraoperative Record and any orders documented therein. Any exception s are noted below.
[2016-11-12 10:00] VITALS: BP 120/66; PULSE 73; TEMP 36.6; O2SAT 94
[2016-11-12 10:30] VITALS: BP 155/79; PULSE 72; TEMP 36.6; O2SAT 94
== END | disposition home or self-care (01) ==
LOC: C.ACU 05:32
PROVIDERS: ATTEND Surgery
DX: C34.31 Malignant neoplasm of lower lobe, right bronchus or lung (principal); C34.2 Malignant neoplasm of middle lobe, bronchus or lung; M19.90 Unspecified osteoarthritis, unspecified site; E11.29 Type 2 diabetes mellitus with other diabetic kidney complication; E11.65 Type 2 diabetes mellitus with hyperglycemia; E78.00 Pure hypercholesterolemia, unspecified; Z87.891 Personal history of nicotine dependence; L40.9 Psoriasis, unspecified; E11.43 Type 2 diabetes mellitus with diabetic autonomic (poly)neuropathy; Z79.4 Long term (current) use of insulin; Z79.82 Long term (current) use of aspirin; Z82.49 Family history of ischemic heart disease and other diseases of the circulatory system; Z83.3 Family history of diabetes mellitus

== ENCOUNTER 2016-11-21 05:19 | Inpatient (IN) | payer OTHER ==
[~2016-11-21] VITALS: Ht 177.8 cm; Wt 77.0 kg
[2016-11-21] VITALS (9 sets, daily range): BP systolic 124–170; BP diastolic 76–88; PULSE 79–91; TEMP 36.2–36.7; O2SAT 94–100; BMI 24.0
[~2016-11-21 05:19] MED LIST changes: -AMOX1TAB43 PO; -ATROPINE SULFATE 0.1 MG/ML 5ML SYR IV PRN; -CEFAZOLIN SOD 1 GM VIAL ONE; -DEXAMETHASONE SOD INJ 4 MG/ML VIAL ONE; -ESMOLOL HCL 10 MG/ML 10 ML VIAL ONE; -EpHEDrine SULFATE INJ 50 MG/ML AMP IV PRN; -FENTANYL CITRATE INJ 50 MCG/1 ML 2 ML VIAL IV PRN; -FENTANYL CITRATE INJ 50 MCG/1 ML 2 ML VIAL ONE; -FLUMAZENIL 0.1 MG/1 ML 10 ML VIAL IV PRN; -GLYCOPYRROLATE INJ 0.2 MG/ML VIAL ONE; -HYDROmorphone INJ 2 MG/ML SYR/VIAL IV PRN; -LABETALOL HCL IV 5 MG/ML 20ML IV PRN; -LACTATED RINGER'S 1000ML 1,000 ML IV SCH; -LARYING-O-JET KIT (LTA) ONE; -LIDOCAINE HCL 2% 2 ML VIAL (20MG/ML) ONE; -MEPERIDINE HCL 25 MG/ML CARP IV PRN; -MIDAZOLAM HCL 1 MG/ML 2ML VIAL ONE; -MoRPHine SULFATE 2 MG/ML CARP IV PRN; -NALOXONE HCL 0.4 MG/1 ML VIAL/CARP IV PRN; -NEOSTIGMINE METHYLSULFATE 5 MG/5 ML SYR ONE; -ONDANSETRON INJ 2 MG/ML 2 ML VIAL IV PRN; -ONDANSETRON INJ 2 MG/ML 2 ML VIAL ONE; -PHENYLEPHRINE 100MCG/ML 5ML SYR IV PRN; -PHENYLEPHRINE 100MCG/ML 5ML SYR ONE; -PRD10 PO; -PROPOFOL IV EMULSION 10 MG/ML 20 ML VIAL IV ONE; -ROCURONIUM BROMIDE 10 MG/ML 5 ML VIAL IV ONE; -TRAMADOL HCL 50 MG TAB PO PRN
[2016-11-21] MEDS ORDERED: ONDANSETRON INJ 2 MG/ML 2 ML VIAL ONE ×2 (06:45→15:02)
[2016-11-21] MEDS ORDERED: LIDOCAINE HCL 2% 2 ML VIAL (20MG/ML) ONE (06:45)
[2016-11-21] MEDS ORDERED: MIDAZOLAM HCL 1 MG/ML 2ML VIAL ONE (06:45)
[2016-11-21] MEDS ORDERED: PROPOFOL IV EMULSION 10 MG/ML 20 ML VIAL IV ONE (06:45)
[2016-11-21] MEDS ORDERED: GLYCOPYRROLATE INJ 0.2 MG/ML VIAL ONE (06:45)
[2016-11-21] MEDS ORDERED: NEOSTIGMINE METHYLSULFATE 5 MG/5 ML SYR ONE (06:45)
[2016-11-21] MEDS ORDERED: FENTANYL CITRATE INJ 50 MCG/1 ML 2 ML VIAL ONE ×3 (06:45→10:58)
[2016-11-21] MEDS ORDERED: CISATRACURIUM BESYLATE IV SOLN 2 MG/ML 10 ML VIAL ONE ×3 (06:45→12:18)
[2016-11-21] MEDS ORDERED: SODIUM CHLORIDE 0.9% PF 50 ML VIAL ONE (06:58)
[2016-11-21] MEDS ORDERED: BUPIVACAINE LIPOSOME 1/3% 266 MG/20 ML VIAL INFIL ONE (06:58)
[2016-11-21] MEDS ORDERED: ATROPINE SULFATE 0.1 MG/ML 5ML SYR IV PRN (08:15)
[2016-11-21] MEDS ORDERED: ONDANSETRON INJ 2 MG/ML 2 ML VIAL IV PRN ×2 (08:15→15:15)
[2016-11-21] MEDS ORDERED: HYDROmorphone INJ 1 MG/ML SYR IV PRN (08:15)
[2016-11-21] MEDS ORDERED: EpHEDrine SULFATE INJ 50 MG/ML AMP IV PRN (08:15)
[2016-11-21] MEDS ORDERED: PROMETHAZINE HCL INJ 6.25 MG in SODIUM CHLORIDE 0.9% 50ML 50 ML IV PRN (08:15)
[2016-11-21] MEDS ORDERED: FENTANYL CITRATE INJ 50 MCG/1 ML 2 ML VIAL IV PRN (08:15)
[2016-11-21] MEDS ORDERED: PHENYLEPHRINE 100MCG/ML 5ML SYR ONE ×2 (08:37→12:16)
[2016-11-21] MEDS ORDERED: DEXAMETHASONE SOD INJ 4 MG/ML VIAL ONE (08:42)
[2016-11-21] MEDS ORDERED: CEFAZOLIN SOD 1 GM VIAL ONE (11:48)
[2016-11-21] MEDS ORDERED: PHENYLEPHRINE HCL INJ 10 MG/ML VIAL ONE (13:10)
[2016-11-21] MEDS ORDERED: DEXTROSE 50% 50 ML SYR IV PRN ×2 (14:45→18:15)
[2016-11-21] MEDS ORDERED: GLUCOSE 10 TABS/TUBE PO PRN ×2 (14:45→18:15)
[2016-11-21] MEDS ORDERED: GLUCAGON FOR INJ 1 MG VIAL SQ PRN ×2 (14:45→18:15)
[2016-11-21] MEDS ORDERED: GLUCOSE 40% GEL 15 GM TUBE PO PRN ×2 (14:45→18:15)
[2016-11-21] MEDS ORDERED: ALBUTEROL HFA 8 GM INHALER INH PRN (15:15)
--- NOTE | 2016-11-21 15:57 | DIAGNOSTIC IMAGING REPORT ---
CHEST ONE VIEW PORTABLE CLINICAL HISTORY: 60 years-old Male presenting with right lung resection. TECHNIQUE: Portable upright AP view of the chest was obtained. COMPARISON: 11/12/2016. FINDINGS: Interval placement of a large bore right pleural drain, which terminates at the right apex. Extensive soft tissue emphysema at the base of the neck and along the left chest wall may relate to the presence of the pleural drain as only minimal pneumomediastinum superiorly may be present. Cardiomediastinal silhouette otherwise normal. Linear hyperdensity in the region of the right hilum may represent postsurgical change. Elevation of the right hemidiaphragm, likely due to overall right lung volume loss due to right lobectomy. Decreased prominence of minimal right lower opacities. Minimal blunting of the right costophrenic angle likely trace effusion. No pneumothorax. Osseous structures normal. Upper abdomen normal. IMPRESSION: 1. Postsurgical changes of right lobectomy with right pleural drain in place. No pneumothorax. Trace right pleural effusion. 2. Extensive soft tissue emphysema most likely relates to the presence of the pleural drain given only minimal pneumomediastinum may be present superiorly. Electronically signed by: Herberth Palacios M.D. 11/21/2016 3:55 PM Dictated Date/Time: 11/21/2016 3:51 PM
[2016-11-21] MEDS ORDERED: INSULIN ASPART 100 UNITS/ML 3 ML PEN SC SCH (16:00)
--- NOTE | 2016-11-21 16:26 | Anesthesiology Progress Note ---
Anesthesia Post Op Note Date & Time Nov 21, 2016 at 16:26 Vital Signs Pain Intensity: 0 Vital Signs Past 12 Hours Date Time Temp Pulse Resp B/P (MAP) Pulse Ox O2 Delivery O2 Flow Rate FiO2 11/21/16 16:10 36.3 77 20 145/80 95 Nasal Cannula 3 11/21/16 16:00 75 20 145/84 97 Nasal Cannula 3 11/21/16 15:50 76 20 115/58 100 Oxymask 10 11/21/16 15:40 75 20 127/72 100 Oxymask 10 11/21/16 15:30 36.2 76 24 134/94 100 Oxymask 10 11/21/16 05:46 36.4 91 18 132/80 94 Room Air Notes Mental Status: alert / awake / arousable, participated in evaluation Pt Amnestic to Procedure: Yes Nausea / Vomiting: adequately controlled Pain: adequately controlled Airway Patency, RR, SpO2: stable & adequate BP & HR: stable & adequate Hydration State: stable & adequate Anesthetic Complications: no major complications apparent
--- NOTE | 2016-11-21 16:56 | OPERATIVE REPORT ---
DATE OF OPERATION: 11/21/2016 PREOPERATIVE DIAGNOSES: 1. 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 2. Status post neoadjuvant chemoradiation. 3. Cigarette smoking. POSTOPERATIVE DIAGNOSES: Same. PROCEDURE: Robot assisted thoracoscopic right upper and middle bilobectomy with mediastinal lymph node dissection. SURGEON: Dr. Chappell. SUPERVISOR MOLD YARD: Kailash Anderson PA-C. ANESTHESIA: General anesthesia endotracheal intubation. INDICATION FOR PROCEDURE AND FINDINGS: Xavier Cobian is a 60-year-old male who has been smoking his entire life who was found to have a nonsmall cell lung carcinoma involving the right lower lobe. On PET scan it appeared to be involving the right middle lobe also. I did feel that he was resectable. We worked him up, he was found to have microscopic disease in his level 7 area. I took him to the operating room after he received neoadjuvant chemoradiation and did a mediastinoscopy and the nodes were all negative. For this reason, I then got him readied and on 11/21/2016 performed a robot assisted thoracoscopic right middle and lower bilobectomy. I also did multiple lymph node dissections. His frozen section showed no evidence of cancer, although it appeared there may have been some carcinoma in situ and very small foci. We really did not have enough to re-excise any and I was quite concerned about a sleeve resection as he had received radiation therapy. He has a couple small leaks repaired. He tolerated it well and was extubated with negligible blood loss. PROCEDURE: The patient brought to the operating room and laid in supine position. General anesthesia induced and endotracheal intubation was performed with a double lumen tube. The patient was placed in left lateral decubitus position, right chest prepped, draped in usual sterile fashion. A 5 mm incision was made in the interspace posteriorly and 3 cm from the spinous processes. 10 cm more medial to this in the 8th interspace an 8 mm port was placed. 9 mm more medial in the 8 interspace a 12 mm port was placed with the camera and then in about the 7th interspace 10 cm anterior to this, another 8 mm port was placed. We placed 2 warehouse assistant's ports due to the fact that we were doing middle lobectomy and pleurectomy. Both were 2 interspaces in approximately the 10th interspace and one was medial and one was lateral. When going in we could see there were some adhesions of the upper lobe which were taken down. In particular, there was an area in the apex which was quite adherent and on taken this down we stapled across this and sent it off. This did not appear to be malignant. We did have a leak here. We then performed a right middle and lower bilobectomy without difficulty. It was a tedious case, we never got into bleeding and he looked quite good at the end. He was extubated in the room. PROCEDURE: The patient was brought to the operating room and laid in supine position. General anesthesia induced and endotracheal intubation was performed with a double lumen tube. The patient was placed in left lateral decubitus position, right chest prepped and draped in usual sterile fashion. After appropriate timeout had been given and prophylactic antibiotics administered a 12 mm port was placed in the camera port 8th interspace just a bit anterior to the mid axillary line. It could be seen there were very little in the way of adhesions. We then placed our other ports as outlined above. We then proceeded to take down the posterior pleura and freed up the hilum. Upon freeing this up I got to the bifurcation of the bronchus intermedius from the upper lobe and felt we could get around this. I then dissected out, I took down the inferior pulmonary ligament and took out level 8, level 9, level 7, 10, 11 and 12 lymph nodes. We freed up the pulmonary vein draining the lower lobe and also freed up the pulmonary vein draining the middle lobe. I then went into the fissure and after dividing this came upon some large nodes which were removed. Upon opening this we came upon the artery. I dissected the artery back quite nicely with the robot until we saw the branches of the middle lobe. We then went laterally, although this was difficult due to adhesions. Attention was turned towards anteriorly and we completed the fissure anteriorly with Endo-TURNER staplers. This came upon the artery quite nicely. We could see we were in good position. I then fired an Endo-TURNER stapler across the inferior pulmonary vein. I also fired an Endo-TURNER stapler across the middle lobe vein. After dissecting this greatly freed up the artery. We were able to get around this although it was still a bit difficult due to the bronchus. For this reason, we dissected out the bronchus intermedius just distal to its takeoff from the right mainstem bronchus. Around this we fired Endo-TURNER stapler twice and was able to divide this. This then freed up the artery quite nicely. We fired an Endo-TURNER stapler across this. Interesting enough upon pulling the middle lobe, it was seen that there was another branch to the superior pulmonary vein from the middle lobe which was more posterior. We then fired an Endo-TURNER stapler around this and delivered the mass off the field in an Endobag. I then did a full lymph node dissection removing 2 of the 4 nodes, although we did biopsies of this with mediastinoscopy in the not too distant past. I then mixed 266 mg of Exparel and 60 mL total of normal saline was injected under thoracoscopic guidance from the 2nd to the 11th rib for an intercostal block. There were a couple small areas of bleeding which were controlled with stapler and 1 with 4-0 Prolene suture. His air leak was very small at the conclusion of the case. He really had no bleeding. A 24-Welsh chest tube was placed in the anterior thoracoscopy port and directed towards the apex. Sutures were placed with silk suture. 0 Polysorb was used to close the muscle layers of the incision. We had to enlarge in order to take the specimen out. We did use a rib retractor. We also closed the deeper muscle layers and the warehouse assistant ports and 12 mm ports. 4-0 Monocryl was used in a running subcuticular fashion to approximate wound edges. He tolerated it well and was extubated in the room. It should be noted that I did do a bronchoscopy on this patient with the department of anesthesia's small bronchoscope to assess for placement. I went down and saw that we did appear to have enough room in the bronchus intermedius to perform this bilobectomy. I was very happy how well the patient did. He was transported back to the post-anesthesia care unit after being extubated. I attest to the content of the Intraoperative Record and any orders documented therein. Any exceptions are noted below. BINU
[2016-11-21] MEDS: MoRPHine SULFATE 2 MG/ML CARP IV PRN (17:19)
[2016-11-21] MEDS: SODIUM CHLORIDE 0.9% 1000ML 1,000 ML IV SCH (17:19)
[2016-11-21] MEDS ORDERED: PHARMACY GLYCEMIC MGMT CONSULT PRN (17:55)
[2016-11-21] MEDS: METOCLOPRAMIDE HCL INJ 5 MG/ML 2 ML VIAL IV. SCH (18:03)
[2016-11-21] MEDS: ACETAMINOPHEN IV 1,000 MG in EMPTY BAG 0 ML IV SCH (18:03)
[2016-11-21] MEDS: KETOROLAC TROMETHAMINE 15 MG/ML VIAL IV. SCH (18:09)
[2016-11-21] MEDS: INSULIN REGULAR 250 UNITS in SODIUM CHLORIDE 0.9% 250ML 250 ML IV SCH ×4 (18:28→22:55)
[2016-11-21] MEDS: INSULIN ASPART 100 UNITS/ML 3 ML PEN SC SCH ×2 (18:30→21:00)
--- NOTE | 2016-11-21 20:56 | Pharmacy Progress Note ---
Glycemic Control Intl Consult Date of Service Nov 21, 2016. Scope Glycemic Pharmacist consulted by Dr Galvan on 11/21/16 for glycemic control and to write orders per [facility] inpatient glycemic control protocol Objective Weight (Kilograms): 77.11 Accuchecks BSG (last 24hrs): Test 11/21/16 05:50 11/21/16 14:22 11/21/16 15:34 11/21/16 16:20 Bedside Glucose 93 mg/dl (70-99) 270 mg/dl (70-99) 257 mg/dl (70-99) 230 mg/dl (70-99) Test 11/21/16 17:20 Bedside Glucose 228 mg/dl (70-99) Recent Pertinent Medications Outpatient Anti-diabetic Regimen: * Lantus 65 units qHS + Novolog with meals per scale (with typical meal around 25 units per patient) * A1c = 7.0 % 06/28/16 The patient is currently receiving: * Insulin infusion started in OR Risk Factors for Insulin Resistance: * Steroids: dexamethasone 8 mg IV x 1 intraoperatively * IVF: NS @ 75 mLs/hr * Recent Surgery: s/o right upper and right lower lobectomy with lymph node dissection * Diet: type 2 diabetic diet Assessment & Plan ASSESSMENT: * ADA & AACE recommend a goal blood sugar range 140-180 mg/dl for the majority of critically ill & non-critically ill patients. However, more stringent targets may be selected in individual cases. Will utilize more stringent goal of 110-150mg/dl based on patient age & comorbidities. Additionally, tighter glycemic control is warranted to facilitate wound/infection healing. * Mr Cobian is a 60 y/o M who underwent an extensive thoracic surgery today involving right upper and right middle lobectomies. He took Lantus 65 units the night prior to the surgery. During the surgery, the patient required an insulin infusion due to blood sugars greater than 200 mg/dL; this was around 1400. The infusion was continued until the patient went to the floor and was turned off around 1700. An hour after the infusion was stopped, the patient's blood sugar was 220 mg/dL. After discussion with Dr Galvan, the infusion was restarted with plans to transition from IV to SQ tomorrow morning. * There was some concern regarding the patient's home dose due to the high Lantus dose. I spoke with the patient this evening and confirmed the patient's Lantus dose SECOND CRUSHER. This was a short interview as the patient was having difficulty breathing. He told me that he takes Lantus 65 units and has been on this dose for about a year. He denies hypoglycemia. Blood sugars typically run around 150-170 mg/dL. He informed me that the Novolog is based on a scale - typical meal dose is around 25 units. * Due to the patient's surgery plus dexamethasone, a dose of Lantus 40 units ( weight based stress of 3 full 24 hour dose) will be given tonight along with continuation of insulin infusion. I am not sure how much the patient will eat and this dose is not to represent a full 24 hour dose of Lantus (I do not think that this will be sufficient). This dose is to facilitate the transition. PLAN FOR INPATIENT GLYCEMIC CONTROL: * Continuing IV insulin infusion per moderate (moderate/severe) stress protocol * Goal Range 110 - 150 mg/dl * In the critical care setting, continuous IV insulin infusion has been shown to be the best method for achieving glycemic targets. * Basal insulin with LANTUS 40 units SQ x 1 * Please note that the plan above was derived based on current level of insulin resistance and hospital stress. These recommendations are appropriate for inpatient admission only. Plan of care upon discharge will need to be reassessed to avoid potential outpatient hypo/hyperglycemia. Thank you.
[2016-11-21] MEDS ORDERED: INSULIN GLARGINE SOLOSTAR 100 UNITS/ML 3 ML PEN SC SCH (21:00)
[2016-11-21] MEDS ORDERED: INSULIN GLARGINE SOLOSTAR 100 UNITS/ML 3 ML PEN SC ONE (21:00)
[2016-11-21] MEDS: DOCUSATE SODIUM 100 MG CAP PO SCH (21:46)
[2016-11-21] MEDS: CEFAZOLIN IV 2,000 MG in DEXTROSE 5% 50ML 100 ML IV SCH (21:47)
[2016-11-22] VITALS (9 sets, daily range): BP systolic 104–149; BP diastolic 72–89; PULSE 82–88; TEMP 36.3–36.6; O2SAT 91–95; Ht 177.8 cm; Wt 77.0 kg
[2016-11-22] MEDS: OXYCODONE HCL IR 5 MG TAB (IMMEDIATE RELEASE) PO PRN ×3 (00:49→16:45)
[2016-11-22] MEDS: METOCLOPRAMIDE HCL INJ 5 MG/ML 2 ML VIAL IV. SCH ×2 (01:54→09:47)
[2016-11-22] MEDS: ACETAMINOPHEN IV 1,000 MG in EMPTY BAG 0 ML IV SCH (01:54)
[2016-11-22] MEDS: KETOROLAC TROMETHAMINE 15 MG/ML VIAL IV. SCH ×3 (01:54→18:52)
[2016-11-22] MEDS: CEFAZOLIN IV 2,000 MG in DEXTROSE 5% 50ML 100 ML IV SCH (01:54)
[2016-11-22] MEDS: SODIUM CHLORIDE 0.9% 1000ML 1,000 ML IV SCH (03:30)
[2016-11-22 06:26] LABS: BASO % 0.1 %; BASO ABS # 0.01 K/uL (0-0.2); COMPLETE YES; HEMATOCRIT 33.3 % (42-52); IG% 0.2 %; LYMPH % 2.6 %; LYMPH ABS # 0.27 K/uL (1.2-3.4); MEAN CELL VOLUME 84.7 fL (80-100); MEAN CORPUSCULAR HGB CONC 34.2 g/dl (32-36); MONO % 15.5 %; NEUT % 81.6 %; PLATELET COUNT 174 K/uL (130-400); RED BLOOD COUNT 3.93 M/uL (4.7-6.1); WHITE BLOOD COUNT 10.21 K/uL (4.8-10.8)
[2016-11-22 07:02] LABS: BUN/CREATININE RATIO 20.5 (10-20); CALCIUM 8.4 mg/dl (8.5-10.1); CREATININE 0.77 mg/dl (0.60-1.40); POTASSIUM 4.2 mmol/L (3.5-5.1)
[2016-11-22 07:24] LABS: ESTIMATED AVERAGE GLUCOSE 189 mg/dl; HA1C FLAG Normal (Normal)
--- NOTE | 2016-11-22 07:31 | DIAGNOSTIC IMAGING REPORT ---
CHEST ONE VIEW PORTABLE CLINICAL HISTORY: right lung resection COMPARISON STUDY: 11/21/2016 FINDINGS: Postsurgical changes are present on the right. There is increasing right-sided subcutaneous emphysema. There is a 17 mm right apical pneumothorax. There is right-sided volume loss consistent with surgery. There is no lobar consolidation. Increased right basal markings are likely atelectatic..[ IMPRESSION: 1. 17 mm right apical pneumothorax 2. Increasing right-sided subcutaneous emphysema 3. Right basilar airspace opacities, likely atelectatic Electronically signed by: Waldo Rodriguez M.D. 11/22/2016 7:30 AM Dictated Date/Time: 11/22/2016 7:28 AM
[2016-11-22] MEDS: INSULIN REGULAR 250 UNITS in SODIUM CHLORIDE 0.9% 250ML 250 ML IV SCH ×5 (07:52→11:53)
[2016-11-22] MEDS: ASPIRIN 325 MG ECTAB PO SCH (08:08)
[2016-11-22] MEDS: DOCUSATE SODIUM 100 MG CAP PO SCH ×2 (08:08→21:23)
[2016-11-22] MEDS: PANTOprazole SOD 40 MG TAB PO SCH (08:09)
[2016-11-22] MEDS: PROPRANOLOL HCL 80 MG LA CAP PO SCH (08:09)
[2016-11-22] MEDS: LISINOPRIL 10 MG TAB PO SCH (08:10)
[2016-11-22] MEDS: EZETIMIBE 10MG TAB PO SCH (08:10)
[2016-11-22] MEDS: SIMVASTATIN 80 MG TAB PO SCH (08:10)
[2016-11-22] MEDS: ENOXAPARIN 40 MG/0.4 ML SYR SQ SCH (08:12)
[2016-11-22] MEDS: INSULIN ASPART 100 UNITS/ML 3 ML PEN SC SCH ×4 (08:12→21:33)
--- NOTE | 2016-11-22 08:33 | Medical Consult ---
Consultation Date of Consultation: Nov 22, 2016. Attending Physician: Stanley Chappell MD Reason for Consultation: Medical Management History of Present Illness This is a 60 yo M with PMHx of HTN, HLD, DM II, Stage IIIA NSCLC of the RML and RLL, remote tobacco use history, who was admitted under pulmonary medicine' s service. Pt is s/p neoadjuvant chemotherapy and radiation, on 11/21/16 he underwent robot assisted thoracoscopic bilobectomy with removal of a right middle and right lower lobe with mediastinal lymphadenectomy. There were 2 large nodes which were biopsied and sent for pathology. If the nodes are negative then pulmonary medicine will proceed with lung resection, if positive then will proceed with chemotherapy and radiation. The patient is having pain currently with the chest tube on to suction, but when it's off his pain is tolerable. His breathing is shallow and he has trouble with deep breaths during my interview. He feels well otherwise. He was able to eat breakfast without difficulty, and is passing gas. No bowel movement in the past 2 days. He has been ambulating about the halls this morning without difficulty. Past Medical/Surgical History Medical Problems: (1) COPD (chronic obstructive pulmonary disease) Status: Acute (2) Lung cancer Status: Acute HTN HLD DM II GERD Remote tobacco use Social History Smoking Status: Current Every Day Smoker Housing Status: lives with family Occupation Status: employed Allergies Coded Allergies: Varenicline (Verified Adverse Reaction, Mild, WEIRD DREAMS, 11/21/16) Current Inpatient Medications Current Inpatient Medications Medications (Trade) Dose Ordered Sig/Jeromy Route Start Time Stop Time Status Last Admin Dose Admin Insulin Human Regular 250 units/ Sodium Chloride 252.5 ml @ 0 mls/hr DAILY@1130 IV 11/21/16 14:35 12/21/16 11:29 11/22/16 07:52 3.5 MLS/HR Acetaminophen 1000 mg/Empty Bag 100 ml @ 400 mls/hr Q8H IV 11/21/16 18:00 12/21/16 15:14 11/22/16 01:54 400 MLS/HR Oxycodone HCl (Roxicodone Immediate Rel Tab) 5 mg Q6H PRN PO 11/21/16 15:15 12/05/16 15:14 11/22/16 00:49 5 MG Albuterol (Ventolin Hfa Inhaler) 2 puffs QID PRN INH 11/21/16 15:15 12/21/16 15:14 Aspirin (Ecotrin Tab) 325 mg QAM PO 11/22/16 09:00 12/22/16 08:59 EZETIMIBE (Zetia Tab) 10 mg QAM PO 11/22/16 09:00 12/22/16 08:59 Lisinopril (Zestril Tab) 10 mg QAM PO 11/22/16 09:00 12/22/16 08:59 Propranolol HCl (Inderal LA Cap) 80 mg QAM PO 11/22/16 09:00 12/22/16 08:59 Simvastatin (Zocor Tab) 80 mg QAM PO 11/22/16 09:00 12/22/16 08:59 Pantoprazole Sodium (Protonix Tab) 40 mg QAM PO 11/22/16 09:00 12/22/16 08:59 Miscellaneous Information (Order Awaiting Action) 1 ea QS N/A 11/21/16 16:00 12/21/16 15:59 Enoxaparin Sodium (Lovenox Inj) 40 mg DAILY SQ 11/22/16 09:00 12/22/16 08:59 Ondansetron HCl (Zofran Inj) 4 mg Q4H PRN IV 11/21/16 15:15 12/21/16 15:14 Docusate Sodium (coLACE CAP) 100 mg BID PO 11/21/16 21:00 12/21/16 20:59 11/21/16 21:46 100 MG Ketorolac Tromethamine (Toradol Inj) 15 mg Q8H IV. 11/21/16 18:00 11/23/16 10:01 11/22/16 01:54 15 MG Metoclopramide HCl (Reglan Inj) 10 mg Q8H IV. 11/21/16 18:00 11/22/16 10:01 11/22/16 01:54 10 MG Morphine Sulfate (MoRPHine SULFATE INJ) Q1H PRN IV 11/21/16 15:15 12/05/16 15:14 11/21/16 17:19 2 MG Sodium Chloride 1,000 ml @ 75 mls/hr [id number] IV 11/21/16 15:15 12/21/16 15:14 11/22/16 03:30 75 MLS/HR Miscellaneous Information (Consult Glycemic Management Pharmacy) 1 ea UD PRN N/A 11/21/16 17:55 12/21/16 17:54 Insulin Aspart (novoLOG ASPART) SLIDING SCALE PCHS SC 11/21/16 18:30 12/21/16 18:29 Glucose (Glucose 40% Gel) UD PRN PO 11/21/16 18:15 12/21/16 18:14 Glucose (Glucose Chew Tab) 1 tabs UD PRN PO 11/21/16 18:15 12/21/16 18:14 Dextrose (Dextrose 50% 50ML Syringe) 50 ml UD PRN IV 11/21/16 18:15 12/21/16 18:14 Glucagon (Glucagon Inj) 1 mg UD PRN SQ 11/21/16 18:15 12/21/16 18:14 Review of Systems Constitutional: No fever, No chills, No sweats Eyes: No problem reported Respiratory: + cough, + problem reported (pain with deep breaths) Cardiovascular: + chest pain (secondary to VATs), No edema, No palpitations Abdomen: No pain, No nausea, No vomiting, No diarrhea, No constipation Musculoskeletal: No joint pain, No swelling Genitourinary - Male: No dysuria Neurologic: No numbness/tingling Endocrine: No fatigue Integumentary: No rash, No itch Physical Exam Date Time Temp Pulse Resp B/P (MAP) Pulse Ox O2 Delivery O2 Flow Rate FiO2 11/22/16 07:05 36.5 82 18 136/79 (98) 91 Room Air 11/22/16 06:44 93 Room Air 11/22/16 04:37 36.4 84 17 130/74 (92) 94 Room Air 11/22/16 01:40 36.6 86 18 134/80 (98) 92 Room Air 11/21/16 23:40 36.7 83 18 135/81 (99) 95 Room Air 11/21/16 23:30 Room Air 11/21/16 21:40 36.7 80 16 124/76 (92) 94 Room Air 11/21/16 20:38 36.6 83 16 170/84 (112) 96 Nasal Cannula 3.0 11/21/16 19:39 36.5 89 16 131/83 (99) 100 Nasal Cannula 3.0 11/21/16 18:40 36.6 91 16 131/83 (99) 99 Nasal Cannula 3.0 11/21/16 17:40 36.4 86 20 133/81 (98) 96 Nasal Cannula 3.0 11/21/16 17:10 36.2 86 24 149/87 (107) 94 Nasal Cannula 3.0 11/21/16 16:40 97 Nasal Cannula 3.0 11/21/16 16:40 Nasal Cannula 3.0 11/21/16 16:40 36.6 79 40 148/88 (108) 97 Nasal Cannula 3.0 11/21/16 16:10 36.3 77 20 145/80 95 Nasal Cannula 3 11/21/16 16:00 75 20 145/84 97 Nasal Cannula 3 11/21/16 15:50 76 20 115/58 100 Oxymask 10 11/21/16 15:40 75 20 127/72 100 Oxymask 10 11/21/16 15:30 36.2 76 24 134/94 100 Oxymask 10 General Appearance: WD/WN, + mild distress Head: normocephalic, atraumatic Eyes: PERRL, EOMI ENT: hearing grossly normal, pharynx normal Neck: supple, no JVD Respiratory/Chest: + pertinent finding (on room air, s/p RML and RLL s/p lobectomy, difficulty with deep breaths, chest tube in place in RLL without surrounding erythema) Cardiovascular: regular rate, rhythm, no murmur, normal peripheral pulses Abdomen/GI: normal bowel sounds, non tender, soft Extremities/Musculoskelatal: normal inspection, no pedal edema Neurologic/Psych: alert, normal reflexes, oriented x 3 Skin: normal color, warm/dry Laboratory Results Last 24 Hours Test 11/21/16 14:22 11/21/16 15:34 11/21/16 16:20 11/21/16 17:20 Bedside Glucose 270 mg/dl 257 mg/dl 230 mg/dl 228 mg/dl Test 11/21/16 19:35 11/21/16 20:36 11/21/16 21:34 11/21/16 22:44 Bedside Glucose 241 mg/dl 200 mg/dl 173 mg/dl 196 mg/dl Test 11/21/16 23:35 11/22/16 00:40 11/22/16 01:33 11/22/16 02:33 Bedside Glucose 216 mg/dl 211 mg/dl 180 mg/dl 188 mg/dl Test 11/22/16 03:32 11/22/16 04:41 11/22/16 05:39 11/22/16 05:46 Bedside Glucose 175 mg/dl 149 mg/dl 172 mg/dl White Blood Count 10.21 K/uL Red Blood Count 3.93 M/uL Hemoglobin 11.4 g/dL Hematocrit 33.3 % Mean Corpuscular Volume 84.7 fL Mean Corpuscular Hemoglobin 29.0 pg Mean Corpuscular Hemoglobin Concent 34.2 g/dl Platelet Count 174 K/uL Mean Platelet Volume 9.0 fL Neutrophils (%) (Auto) 81.6 % Lymphocytes (%) (Auto) 2.6 % Monocytes (%) (Auto) 15.5 % Eosinophils (%) (Auto) 0.0 % Basophils (%) (Auto) 0.1 % Neutrophils # (Auto) 8.33 K/uL Lymphocytes # (Auto) 0.27 K/uL Monocytes # (Auto) 1.58 K/uL Eosinophils # (Auto) 0.00 K/uL Basophils # (Auto) 0.01 K/uL RDW Standard Deviation 52.2 fL RDW Coefficient of Variation 16.8 % Immature Granulocyte % (Auto) 0.2 % Immature Granulocyte # (Auto) 0.02 K/uL Sodium Level 136 mmol/L Potassium Level 4.2 mmol/L Chloride Level 106 mmol/L Carbon Dioxide Level 24 mmol/L Anion Gap 6.0 mmol/L Blood Urea Nitrogen 16 mg/dl Creatinine 0.77 mg/dl Est Creatinine Clear Calc Drug Dose 102.7 ml/min Estimated GFR () 112.7 Estimated GFR (Non- 97.3 BUN/Creatinine Ratio 20.5 Random Glucose 154 mg/dl Estimated Average Glucose 189 mg/dl Hemoglobin A1c 8.2 % Calcium Level 8.4 mg/dl Test 11/22/16 06:28 Bedside Glucose 152 mg/dl Assessment & Plan This is a 60 yo M with PMHx of HTN, HLD, DM II, Stage IIIA NSCLC of the RML and RLL, remote tobacco use history, who was admitted under pulmonary medicine' s service. Pt is s/p neoadjuvant chemotherapy and radiation, on 11/21/16 he underwent robot assisted thoracoscopic bilobectomy with removal of a right middle and right lower lobe with mediastinal lymphadenectomy. There were 2 large nodes which were biopsied and sent for pathology. If the nodes are negative then pulmonary medicine will proceed with lung resection, if positive then will proceed with chemotherapy and radiation. S/p thoracoscopic bilobectomy with removal of a right middle and right lower lobe with mediastinal lymphadenectomy - Pain fairly well controlled, worse when suction through chest tube is on.- Pain management per primary team - Await biopsy results HTN - Continue propranolol 80 mg QAM, Lisinopril 10 mg QAM - ASA 325 mg daily DM II - Pt required insulin gtt overnight s/p procedure for BG > 270 on chart. - Lantus 40 U administered to transition off the gtt. - ISS with accuchecks - glycemic pharmacy consult placed. HLD - Statin therapy: simvastatin 80 mg QPM GERD - Cont pantoprazole 40 mg daily Hx of tobacco abuse: - Nicotine patch, cessation encouraged DVT ppx: Lovenox 40 mg subQ, teds, scds CODE STATUS: FULL CODE Disposition: From home PA Physician Supervision Note: I interviewed and examined the patient. Discussed with Kallie Zhao PAC and agree with findings and plan as documented in the note. Any exceptions or clarifications are listed here: None 60-year-old male status post robotic thoracotomy with right bilobar removal and lymph node biopsy with some excision. Post procedure had significant glucose changes, admitted for control now with some pain control issues with adjustment next His vital signs are stable some hypertension may be related to pain control His right chest has rales and little air movement primary team is managing chest tube His hypertension maintain his home medications For diabetes with employed forms to glycemic management with transition from intravenous insulin to basal bolus Documented By: Simone Galvan Thank you for involving us in the care of Mr. Cobian, we will continue to follow along.
[2016-11-22] MEDS ORDERED: PHARMACY GLYCEMIC MGMT CONSULT STA (08:37)
[2016-11-22] MEDS ORDERED: INSULIN GLARGINE SOLOSTAR 100 UNITS/ML 3 ML PEN SC ONE ×3 (09:00→21:00)
[2016-11-22] MEDS ORDERED: NICOTINE 14 MG/24 HR TDSY TD ONE (09:07)
--- NOTE | 2016-11-22 09:10 | SURGERY PROGRESS NOTE ---
DATE: 11/22/2016 DATE: 11/22/2016 SUBJECTIVE: Mr. Cobian is 1 day status post robot assisted thoracoscopic bilobectomy with removal of a right middle and right lower lobe with mediastinal lymphadenectomy. He looks great today. His pain is well controlled. He is ambulating in the hallway. He is tolerating a diet. He is voiding well. He does have a tiny air leak but has drained very little fluid. ASSESSMENT AND PLAN: Postop day #1 status post robot assisted thoracoscopic right middle and right lower bilobectomy with mediastinal lymphadenectomy for stage 3 lung carcinoma status post neoadjuvant chemoradiation. I think he looks great. We are going to stop his IV fluids and put a nicotine patch on him as he is a smoker. I am quite happy with his x-ray and quite happy with his labs. We are going to push for ambulation and when his air leak stops we will get him discharged.
--- NOTE | 2016-11-22 09:44 | Pharmacy Progress Note ---
Glycemic Control Progress Note Date of Service Nov 22, 2016. Scope Glycemic Pharmacist consulted for glycemic control to write orders per [facility] inpatient glycemic control protocol. Objective Accuchecks BSG (last 24hrs): Test 11/21/16 14:22 11/21/16 15:34 11/21/16 16:20 11/21/16 17:20 Bedside Glucose 270 mg/dl (70-99) 257 mg/dl (70-99) 230 mg/dl (70-99) 228 mg/dl (70-99) Test 11/21/16 19:35 11/21/16 20:36 11/21/16 21:34 11/21/16 22:44 Bedside Glucose 241 mg/dl (70-99) 200 mg/dl (70-99) 173 mg/dl (70-99) 196 mg/dl (70-99) Test 11/21/16 23:35 11/22/16 00:40 11/22/16 01:33 11/22/16 02:33 Bedside Glucose 216 mg/dl (70-99) 211 mg/dl (70-99) 180 mg/dl (70-99) 188 mg/dl (70-99) Test 11/22/16 03:32 11/22/16 04:41 11/22/16 05:39 11/22/16 05:46 Bedside Glucose 175 mg/dl (70-99) 149 mg/dl (70-99) 172 mg/dl (70-99) Random Glucose 154 mg/dl (70-99) Test 11/22/16 06:28 Bedside Glucose 152 mg/dl (70-99) HbA1c: Test 11/22/16 05:39 Hemoglobin A1c 8.2 % (4.5-5.6) H Recent Pertinent Medications The patient is currently receiving: * Basal insulin: Lantus 40 units SQ x 1 dose 11/21 pm * IV insulin drip - currently @ 3.5 units/hr Outpatient Anti-Diabetic Meds Basal Insulin * Lantus 65 units qHS Bolus Insulin * Novolog with meals per scale (with typical meal around 25 units per patient) Assessment & Plan ASSESSMENT: * See progress note from 11/21/16 for more background info, in short: * Pt has been on IV insulin drip for management of hyperglycemia s/p thoracoscopic right middle and right lower lobectomies with mediastinal lymphadenectomy. Pt did receive a one time dose of dexamethasone IV yesterday, which contributed to hyperglycemia. He takes a significant amount of insulin as an outpatient (~140 units per day - 65 units basal/~75 units bolus). * BSGs ranging 115 - 270 mg/dl over the past 24hrs * Pharmacy received request to transition patient off insulin drip in anticipation of discharge in the near future. Insulin drip is running at 3.5 units/hr = 84 units per day plus pt was administered 40 units of Lantus last evening to help facilitate transition of drip (total 124 units). Of note, the patient had little to no PO intake during this time. * transition to SQ basal/bolus regimen; will base initial doses off of ~120- 140 units per day (greater than weight/stress of 3) * 20 units of Lantus will be given this morning, with Lantus per scale this evening * will attempt to transition to once daily HS dose of Lantus since this is how the patient takes it at home PLAN FOR INPATIENT GLYCEMIC CONTROL: * Basal insulin * Lantus 20 units SQ now * Lantus 45-55 units SQ PM (45 if less than 140, 50 if 140-180, 55 if greater than 180) * Overlap with insulin drip for 6 hours or until directed to hold drip per infusion calculator, whichever happens sooner * Bolus insulin * NovoLog per scale ACHS or Q6hrs while NPO * Goal Range: Low 110 mg/dL - High 140 mg/dL * Correction Factor: 12 mg/dL/unit * Nutritional / Prandial insulin per carb ratio of 1 unit per 4 grams CHO consumed RECOMMENDATIONS FOR DISCHARGE: * A1c of 8.2 % on 11/22/16 (increased from 7 % in June - likely from chemo/ steroids) * Recommend continuing home insulin regimen on discharge and titrate per outpatient provider. * Please note that the plan above was derived based on current level of insulin resistance and hospital stress. These recommendations are appropriate for inpatient admission only. Plan of care upon discharge will need to be reassessed to avoid potential outpatient hypo/hyperglycemia. Thank you.
[2016-11-22] MEDS: FLUCONAZOLE 100 MG TAB PO SCH (09:46)
[2016-11-22] MEDS: ACETAMINOPHEN 325 MG TAB PO SCH ×2 (12:08→19:05)
--- NOTE | 2016-11-22 13:15 | Anesthesiology Progress Note ---
Anesthesia Post Op Note Date & Time Nov 22, 2016 at 13:15 Vital Signs Pain Intensity: 4.0 Vital Signs Past 12 Hours Date Time Temp Pulse Resp B/P (MAP) Pulse Ox O2 Delivery O2 Flow Rate FiO2 11/22/16 13:13 36.3 85 20 149/89 (109) 94 Room Air 11/22/16 07:05 36.5 82 18 136/79 (98) 91 Room Air 11/22/16 06:44 93 Room Air 11/22/16 04:37 36.4 84 17 130/74 (92) 94 Room Air 11/22/16 01:40 36.6 86 18 134/80 (98) 92 Room Air Notes Mental Status: alert / awake / arousable, participated in evaluation Pt Amnestic to Procedure: Yes Nausea / Vomiting: adequately controlled Pain: adequately controlled Airway Patency, RR, SpO2: stable & adequate BP & HR: stable & adequate Hydration State: stable & adequate Anesthetic Complications: no major complications apparent
[2016-11-22] MEDS ORDERED: DC IV INSULIN INFUSION ONE (15:00)
[2016-11-22] MEDS: MoRPHine SULFATE 2 MG/ML CARP IV PRN (18:49)
[2016-11-23] VITALS (10 sets, daily range): BP systolic 103–147; BP diastolic 72–84; PULSE 80–109; TEMP 36.3–36.8; O2SAT 90–96
[2016-11-23] MEDS: ACETAMINOPHEN 325 MG TAB PO SCH ×4 (00:01→18:08)
[2016-11-23] MEDS: INSULIN ASPART 100 UNITS/ML 3 ML PEN SC SCH ×6 (00:07→20:38)
[2016-11-23] MEDS: KETOROLAC TROMETHAMINE 15 MG/ML VIAL IV. SCH ×2 (02:22→09:14)
--- NOTE | 2016-11-23 07:11 | DIAGNOSTIC IMAGING REPORT ---
CHEST ONE VIEW PORTABLE CLINICAL HISTORY: lung resection COMPARISON STUDY: 11/22/2016 FINDINGS: There are postsurgical changes on the right. There is right-sided volume loss. The right-sided chest tube remains unchanged in position. There is increasing extensive subcutaneous emphysema. This makes evaluation of the lung parenchyma difficult. There is an enlarging right pneumothorax with an apical pleural separation 17 mm, and a enlarging medial and basilar component. The left lung remains clear.[ IMPRESSION: 1. Postsurgical changes 2. Increasing right pneumothorax. Progressive extensive subcutaneous emphysema. Electronically signed by: Waldo Rodriguez M.D. 11/23/2016 7:10 AM Dictated Date/Time: 11/23/2016 7:08 AM
[2016-11-23] MEDS: DOCUSATE SODIUM 100 MG CAP PO SCH ×2 (09:12→20:39)
[2016-11-23] MEDS: SIMVASTATIN 80 MG TAB PO SCH (09:12)
[2016-11-23] MEDS: EZETIMIBE 10MG TAB PO SCH (09:12)
[2016-11-23] MEDS: PANTOprazole SOD 40 MG TAB PO SCH (09:12)
[2016-11-23] MEDS: ASPIRIN 325 MG ECTAB PO SCH (09:12)
[2016-11-23] MEDS: LISINOPRIL 10 MG TAB PO SCH (09:13)
[2016-11-23] MEDS: ENOXAPARIN 40 MG/0.4 ML SYR SQ SCH (09:13)
[2016-11-23] MEDS: NICOTINE 14 MG/24 HR TDSY TD SCH (09:13)
[2016-11-23] MEDS: PROPRANOLOL HCL 80 MG LA CAP PO SCH (09:14)
[2016-11-23] MEDS: FLUCONAZOLE 100 MG TAB PO SCH (09:14)
[2016-11-23] MEDS ORDERED: BISACODYL 10 MG SUPP PR SCH (11:00)
--- NOTE | 2016-11-23 11:16 | Hospitalist Progress Note ---
Hospitalist Progress Note Date of Service Nov 23, 2016. (Kallie Zhao PA-C) Subjective Pt evaluation today including: conversation w/ patient, physical exam, chart review, lab review, review of studies Pain: Improving PO Intake: Good Voiding: no voiding problems The patient was seen and examined this morning. Pt reports his pain is improved today compared to yesterday. Chest tube to suction still causes some pain. He has not yet had a bowel movement. Pt is tolerating a diet without difficulty. He has been ambulating around the dawn without difficulty multiple times daily. Constitutional: No fever, No chills, No sweats Respiratory: + dyspnea on exertion (improving), No cough, No sputum, No dyspnea at rest, No hemoptysis Cardiovascular: + see HPI, + chest pain, No palpitations Abdomen: No pain, No nausea, No vomiting, No diarrhea Musculoskeletal: No joint pain, No muscle pain Skin: No rash, No itch (Kallie Zhao PA-C) Objective Vital Signs Date Time Temp Pulse Resp B/P (MAP) Pulse Ox O2 Delivery O2 Flow Rate FiO2 11/23/16 06:54 36.3 80 20 121/78 (92) 96 Nasal Cannula 2.0 11/23/16 04:40 36.4 82 16 117/73 (88) 95 Room Air 11/23/16 00:27 36.6 109 17 103/72 (82) 94 Nasal Cannula 3.0 11/22/16 23:50 Nasal Cannula 3.0 11/22/16 21:28 93 Nasal Cannula 3.0 11/22/16 20:40 36.6 88 20 104/72 (83) 91 Nasal Cannula 3.0 11/22/16 16:40 36.6 86 20 138/80 (99) 91 Nasal Cannula 2.0 11/22/16 16:30 Room Air 11/22/16 13:13 36.3 85 20 149/89 (109) 94 Room Air (Kallie Zhao PA-C) Physical Exam Notes: General Appearance: WD/WN, NAD Head: normocephalic, atraumatic Eyes: PERRL, EOMI ENT: hearing grossly normal, pharynx normal Neck: supple, no JVD Respiratory/Chest: + pertinent finding (on 3L via NC, s/p RML and RLL s/p lobectomy, difficulty with deep breaths, chest tube in place in RLL without surrounding erythema, + cutaneous emphysema on palpation) Cardiovascular: regular rate, rhythm, no murmur, normal peripheral pulses Abdomen/GI: normal bowel sounds, non tender, soft Extremities/Musculoskelatal: normal inspection, no pedal edema Neurologic/Psych: alert, normal reflexes, oriented x 3 Skin: normal color, warm/dry (Kallie Zhao PA-C) Laboratory Results Last 24 Hours Test 11/22/16 11:46 11/22/16 12:42 11/22/16 14:04 11/22/16 16:48 Bedside Glucose 256 mg/dl 117 mg/dl 121 mg/dl 88 mg/dl Test 11/22/16 20:52 11/22/16 23:59 11/23/16 04:02 Bedside Glucose 205 mg/dl 144 mg/dl 129 mg/dl (Kallie Zhao PA-C) Assessment and Plan This is a 60 yo M with PMHx of HTN, HLD, DM II, Stage IIIA NSCLC of the RML and RLL, remote tobacco use history, who was admitted under pulmonary medicine' s service. Pt is s/p neoadjuvant chemotherapy and radiation, on 11/21/16 he underwent robot assisted thoracoscopic bilobectomy with removal of a right middle and right lower lobe with mediastinal lymphadenectomy. There were 2 large nodes which were biopsied and sent for pathology. If the nodes are negative then pulmonary medicine will proceed with lung resection, if positive then will proceed with chemotherapy and radiation. S/p thoracoscopic bilobectomy with removal of a right middle and right lower lobe with mediastinal lymphadenectomy - Pain fairly well controlled, worse when suction through chest tube is on.- Pain management per primary team - Await biopsy results - + cutaneous emphysema on exam. HTN - Continue propranolol 80 mg QAM, Lisinopril 10 mg QAM - ASA 325 mg daily DM II - Pt required insulin gtt overnight s/p procedure for BG > 270 on chart. - Lantus 40 U administered to transition off the gtt. - ISS with accuchecks - glycemic pharmacy consult placed. HLD - Statin therapy: simvastatin 80 mg QPM GERD - Cont pantoprazole 40 mg daily Hx of tobacco abuse: - Nicotine patch, cessation encouraged DVT ppx: Lovenox 40 mg subQ, teds, scds CODE STATUS: FULL CODE Disposition: From home, discharge per primary team Thank you for involving us in the care of Mr. Cobian, we will continue to follow along. (Kallie Zhao, MANISH) PA Physician Supervision Note: I interviewed and examined the patient. Discussed with Kallie Zhao PAC and agree with findings and plan as documented in the note. Any exceptions or clarifications are listed here: None This patient is seen in his room is doing well he's still mildly short of breath and his pleuritic chest pain is easily palpable subcutaneous denies emphysema Vital signs are stable Chest tube shows air leak Right lung has coarse breath sounds decreased breath sounds at bases Patient is status post lobectomy via VATS, we are managing his medical problems including diabetes with pharmacy oversight patient's pain control is acceptable Documented By: Simone Galvan (Simone Galvan M.D.)
--- NOTE | 2016-11-23 11:18 | Pharmacy Progress Note ---
Glycemic Control Progress Note Date of Service Nov 23, 2016. Scope Glycemic Pharmacist consulted for glycemic control to write orders per [facility] inpatient glycemic control protocol. Objective Accuchecks BSG (last 24hrs): Test 11/22/16 11:46 11/22/16 12:42 11/22/16 14:04 11/22/16 16:48 Bedside Glucose 256 mg/dl (70-99) 117 mg/dl (70-99) 121 mg/dl (70-99) 88 mg/dl (70-99) Test 11/22/16 20:52 11/22/16 23:59 11/23/16 04:02 Bedside Glucose 205 mg/dl (70-99) 144 mg/dl (70-99) 129 mg/dl (70-99) HbA1c: Test 11/22/16 05:39 Hemoglobin A1c 8.2 % (4.5-5.6) H Recent Pertinent Medications The patient is currently receiving: * Basal insulin: Lantus 20 units AM and 55 units PM (on 11/22) * Bolus insulin: NovoLog per scale ACHS or Q6hrs while NPO Goal Range: Low 110 mg/dL - High 140 mg/dL Correction Factor: 12 mg/dL/unit Nutritional / Prandial insulin per carb ratio of 1 unit per 4 grams CHO consumed Outpatient Anti-Diabetic Meds Basal Insulin * Lantus 65 units SQ HS (reports being on this dose for 1 year) Bolus Insulin * Novolog TID with meals - ~ 25 units per meal Assessment & Plan ASSESSMENT: * See progress note from 11/22/16 for more background info, in short: * Pt transitioned off IV insulin infusion yesterday afternoon. Patient was given aggressive doses of Lantus (total 75 units) based on large amount of insulin taken as outpatient (~140 units per day) and significant requirements while on insulin infusion (> 120 units). * BSGs ranging 88 - 256 mg/dl over the past 24hrs * Fasting BSG at goal - will transition to once daily HS dose of Lantus since this is how the patient takes it at home. * Post-prandial BSGs at goal - may need to loosen CF/CR based on trend throughout the day. Continue for now and assess on 9/2 am. PLAN FOR INPATIENT GLYCEMIC CONTROL: * Basal insulin * Lantus 55-65 units SQ HS tonight - 55 units for BSG less than 140 - 60 units for BSG 140 -180 - 65 units for BSG greater than 180 * Resume home dose of 65 units of Lantus HS on 11/24 * Bolus insulin * NovoLog per scale ACHS or Q6hrs while NPO * Goal Range: Low 110 mg/dL - High 140 mg/dL * Correction Factor: 12 mg/dL/unit * Nutritional / Prandial insulin per carb ratio of 1 unit per 4 grams CHO consumed RECOMMENDATIONS FOR DISCHARGE: * A1c of 8.2 % on 11/22/16 (increased from 7 % in June - likely from chemo/ steroids) * Recommend continuing home insulin regimen on discharge and titrate per outpatient provider. * Please note that the plan above was derived based on current level of insulin resistance and hospital stress. These recommendations are appropriate for inpatient admission only. Plan of care upon discharge will need to be reassessed to avoid potential outpatient hypo/hyperglycemia. Thank you.
--- NOTE | 2016-11-23 13:27 | SURGERY PROGRESS NOTE ---
DATE: 11/23/2016 Mr. Cobian was seen today on 11/23/2016. He is now 48 hours status post thoracoscopic right middle and lower bilobectomy for stage III lung carcinoma status post chemotherapy and radiation. He has done well. He does have some subcutaneous emphysema. It is increased on his chest x-ray. We are intermittently applying suction to his chest and I am sure when he coughs. This is working its way out. I really do not see a pneumothorax today. He does have a small air leak, but it is intermittent and not large at all. In addition, he is not draining much from his tube. He put out a total of 130 mL yesterday. ASSESSMENT AND PLAN: Postoperative day #2 status post robot assisted thoracoscopic right middle and lower bilobectomy. We are going to continue the chest tube for now. It would be very important for him to ambulate. One thing I am a bit concerned about is the fact that he is using more oxygen. He is up to 3 liters now but he is ambulating in the hallway and I think looks better overall. He does not sound bad on auscultation, although he does have a crackling from the subcutaneous emphysema on the right.
[2016-11-23] MEDS: OXYCODONE HCL IR 5 MG TAB (IMMEDIATE RELEASE) PO PRN (16:10)
[2016-11-23] MEDS: MoRPHine SULFATE 2 MG/ML CARP IV PRN (18:08)
[2016-11-23] MEDS ORDERED: NURSING VERBAL MED ORDER ONE (18:45)
[2016-11-23] MEDS ORDERED: FUROSEMIDE INJ 10 MG in SYRINGE 0 ML IV ONE (19:00)
[2016-11-23] MEDS: UMECLIDINIUM-VILANTEROL (ANORO) INH SCH (20:40)
[2016-11-23] MEDS ORDERED: INSULIN GLARGINE SOLOSTAR 100 UNITS/ML 3 ML PEN SC ONE (21:00)
[2016-11-24] VITALS (10 sets, daily range): BP systolic 130–154; BP diastolic 79–88; PULSE 84–100; TEMP 36.5–36.7; O2SAT 91–98
[2016-11-24] MEDS: ACETAMINOPHEN 325 MG TAB PO SCH ×4 (00:26→18:39)
[2016-11-24] MEDS: MoRPHine SULFATE 2 MG/ML CARP IV PRN (00:27)
--- NOTE | 2016-11-24 07:09 | DIAGNOSTIC IMAGING REPORT ---
CHEST ONE VIEW PORTABLE HISTORY: 60 years-old Male follow-up study status post partial right lung resection COMPARISON: Chest radiograph 11/23/2016 TECHNIQUE: Portable upright AP view of the chest FINDINGS: Cardiac silhouette is within normal limits. Left lung is generally clear with minimal subsegmental left basilar atelectasis. Right hemidiaphragmatic elevation persists with extensive subcutaneous emphysema involving the right chest wall and to a lesser extent tracking along the left lateral chest wall. Right-sided pneumothorax has slightly decreased in size, now with pleural separation of 1.1 cm, previously 1.7 cm. Right-sided chest tube appears unchanged. Postsurgical changes of the right lung apex are again noted noted. Subsegmental right basilar opacities are unchanged suggesting atelectasis. Right lung is mildly hypoinflated. Bones are grossly intact. IMPRESSION: 1. Slightly decreased size of right pneumothorax. 2. Postsurgical changes of the right right lung. The above report was generated using voice recognition software. It may contain grammatical, syntax or spelling errors. Electronically signed by: Amado Arroyo M.D. 11/24/2016 7:07 AM Dictated Date/Time: 11/24/2016 7:04 AM
--- NOTE | 2016-11-24 08:41 | SURGERY PROGRESS NOTE ---
DATE: 11/24/2016 Mr. Cobian is seen today on 11/24/2016. He looks much improved. He had a rough night. I started him on steroids and he had some wheezing. He also had some subcutaneous emphysema. His x-ray today shows actually less subcutaneous emphysema. His lungs are much clear today. He was on 5 liters of O2 last night, he is down to 2 now with saturations in the mid 90s. He feels much better. His chest tube no longer has an air leak. He has decreasing drainage. ASSESSMENT AND PLAN: Postoperative day #2 status post robotic-assisted thoracoscopic right middle and lower bilobectomy with mediastinal lymphadenectomy. I discussed this case with the pathologist last night and his nodes appear to be negative. There also appeared to be very little viable cancer cells left. He has had an excellent response to chemotherapy and radiation. I am extremely more optimistic about his survival than I was when he first presented. If he continues to improve, we will discharge him in the morning.
[2016-11-24] MEDS: EZETIMIBE 10MG TAB PO SCH (09:27)
[2016-11-24] MEDS: LISINOPRIL 10 MG TAB PO SCH (09:27)
[2016-11-24] MEDS: DOCUSATE SODIUM 100 MG CAP PO SCH ×2 (09:27→21:29)
[2016-11-24] MEDS: SIMVASTATIN 80 MG TAB PO SCH (09:27)
[2016-11-24] MEDS: PANTOprazole SOD 40 MG TAB PO SCH (09:27)
[2016-11-24] MEDS: PROPRANOLOL HCL 80 MG LA CAP PO SCH (09:27)
[2016-11-24] MEDS: NICOTINE 14 MG/24 HR TDSY TD SCH (09:28)
[2016-11-24] MEDS: ASPIRIN 325 MG ECTAB PO SCH (09:28)
[2016-11-24] MEDS: FLUCONAZOLE 100 MG TAB PO SCH (09:28)
[2016-11-24] MEDS: ENOXAPARIN 40 MG/0.4 ML SYR SQ SCH (09:29)
[2016-11-24] MEDS: INSULIN ASPART 100 UNITS/ML 3 ML PEN SC SCH ×4 (09:36→21:42)
[2016-11-24] MEDS: AMOXICILLIN/CLAVULANATE TAB 875 MG TAB PO SCH ×2 (09:37→18:37)
--- NOTE | 2016-11-24 10:58 | Hospitalist Progress Note ---
Hospitalist Progress Note Date of Service Nov 24, 2016. (Kallie Zhao PA-C) Subjective Pt evaluation today including: conversation w/ patient, physical exam, chart review, lab review, review of studies Pain: improving PO Intake: fair Voiding: no voiding problems The patient was seen and examined this morning. Patient reports his pain in his chest is improved, he is coughing slightly more and this is extremely painful. There is no sputum production at this time, although he feels like he does need to cough something up. He notes that his appetite was poor last evening and again this morning. He has still not had a bowel movement. He denies any nausea. Patient has been up walking about the dawn without difficulty. He is anticipating the chest tube being pulled tomorrow by thoracic surgery and possibly going home. Additional Comments: Constitutional: No fever, sweats or chills Eyes: No diplopia, no worsening or blurred vision ENT: normal hearing, no trouble swallowing Respiratory: Chest pain, + slight cough without sputum production, + difficulty taking deep breaths, no dyspnea at rest or on exertion Cardiovascular: No chest pain, tightness or palpitations Abdomen: No pain, nausea, vomiting, +constipation Musculoskeletal: No joint pain, calf pain, swelling Neurologic: No weakness, numbness/tingling, or balance problems Psychiatric: No anxiety or depression Skin: No rash or itch (Kallie Zhao PA-C) Objective Vital Signs Date Time Temp Pulse Resp B/P (MAP) Pulse Ox O2 Delivery O2 Flow Rate FiO2 11/24/16 07:20 36.6 92 18 143/84 (103) 98 Nasal Cannula 2.0 11/24/16 07:20 Nasal Cannula 2.0 11/24/16 06:01 97 97 Nasal Cannula 2.0 11/24/16 00:22 94 Nasal Cannula 5.0 11/23/16 23:58 36.7 81 16 130/72 (91) 95 Nasal Cannula 4.0 11/23/16 19:20 36.8 89 18 128/74 (92) 92 Nasal Cannula 4.0 11/23/16 18:30 90 Nasal Cannula 4.0 11/23/16 16:39 94 Nasal Cannula 3.0 11/23/16 16:30 94 Nasal Cannula 3.0 11/23/16 16:15 Nasal Cannula 3.0 11/23/16 14:48 36.4 82 18 126/76 (93) 94 Nasal Cannula 3.0 11/23/16 11:18 36.7 81 18 147/84 (105) 96 Nasal Cannula 3.0 (Kallie Zhao PA-C) Physical Exam Notes: General Appearance: WD/WN, NAD Head: normocephalic, atraumatic Eyes: PERRL, EOMI ENT: hearing grossly normal, pharynx normal Neck: supple, no JVD Respiratory/Chest: + pertinent finding (on 2L via NC, s/p RML and RLL s/p lobectomy, + cough without sputum production, difficulty with deep breaths, chest tube in place in RLL without surrounding erythema, + cutaneous emphysema on palpation) Cardiovascular: regular rate, rhythm, no murmur, normal peripheral pulses Abdomen/GI: normal bowel sounds, non tender, soft Extremities/Musculoskelatal: normal inspection, no pedal edema Neurologic/Psych: alert, normal reflexes, oriented x 3 Skin: normal color, warm/dry (Kallie Zhao PA-C) Laboratory Results Last 24 Hours Test 11/23/16 12:03 11/23/16 16:58 11/23/16 20:25 11/24/16 08:23 Bedside Glucose 148 mg/dl 91 mg/dl 162 mg/dl 66 mg/dl Test 11/24/16 08:55 Bedside Glucose 90 mg/dl (Kallie Zhao PA-C) Assessment and Plan This is a 60 yo M with PMHx of HTN, HLD, DM II, Stage IIIA NSCLC of the RML and RLL, remote tobacco use history, who was admitted under pulmonary medicine' s service. Pt is s/p neoadjuvant chemotherapy and radiation, on 11/21/16 he underwent robot assisted thoracoscopic bilobectomy with removal of a right middle and right lower lobe with mediastinal lymphadenectomy. There were 2 large nodes which were biopsied and sent for pathology. If the nodes are negative then pulmonary medicine will proceed with lung resection, if positive then will proceed with chemotherapy and radiation. S/p thoracoscopic bilobectomy with removal of a right middle and right lower lobe with mediastinal lymphadenectomy - Pain fairly well controlled, worse when suction through chest tube is on - Pain management per primary team, bowel regimen added. - Await biopsy results - + cutaneous emphysema on exam - Gave the patient a pillow to hold when he needs to cough - Pt is anticipating chest tube removal tomorrow Constipation - Patient's last bowel movement was 3 days ago, he took Dulcolax suppository yesterday, patient is eating prunes, and taking stool softener. Will order another Dulcolax suppository today, add miralax daily, and if this does not produce bowel movement administer milk of mag ordered prn. - This is likely causing pt to have decreased appetite HTN - Continue propranolol 80 mg QAM, Lisinopril 10 mg QAM - ASA 325 mg daily DM II - Pt initially required insulin drip now transitioned off. - Cont ISS with accuchecks - glycemic pharmacy consult placed. HLD - Statin therapy: simvastatin 80 mg QPM GERD - Cont pantoprazole 40 mg daily Hx of tobacco abuse: - Nicotine patch, cessation encouraged DVT ppx: Lovenox 40 mg subQ, teds, scds CODE STATUS: FULL CODE Disposition: From home, discharge per primary team Thank you for involving us in the care of Mr. Cobian, we will continue to follow along. (Kallie Zhao, PAM[place]) Attending Attestation: Pt seen/examined, chart reviewed, care plan d/w BJ Zhao. I agree w/ the saldana components of her consult note. Pt with cough, wheezing. Had significant dyspnea last pm - now improved. Main complaint is that of constipation. He is passing flatus but no stool and he feels bloated. VSS, afebrile gen - NAD neck - no JVD chest - palpable crepitus right upper chest, chest tubes in place on right lungs - diffuse wheeze, decreased BS right base, no rales, no increased work of breathing heart - RRR, s1, s2 abd - mildly distended but BS+ and nontender ext - no edema A/P: 1. s/p RML/RLL lobectomies 2nd to lung ca along with lymph node dissection 2. acute hypoxic resp failure 2nd to #1 3. COPD with exacerbation 4. constipation, cannot r/o mild ileus recheck bmp/mag to ensure normal electrolytes not contributing to #4 dulcolax 5mg PO x 1 agree he may need other agents consider KUB if #4 not improving add xopenex/atrovent nebs q6h for COPD add mucinex BID cont low-dose prednisone other management per CT surgery may need two-step prior to d/c home Ed Nolan MD (Ed Nolan MD)
[2016-11-24] MEDS ORDERED: MAGNESIUM HYDROXIDE SUSP 30 ML UDC PO PRN (11:15)
[2016-11-24] MEDS ORDERED: BISACODYL 10 MG SUPP PR PRN (11:15)
[2016-11-24] MEDS: POLYETHYLENE (MIRALAX) 17 GM PACK PO SCH (12:34)
--- NOTE | 2016-11-24 15:17 | Pharmacy Progress Note ---
Glycemic Control Progress Note Date of Service Nov 24, 2016. Scope Glycemic Pharmacist consulted for glycemic control to write orders per [facility] inpatient glycemic control protocol. Objective Accuchecks BSG (last 24hrs): Test 11/23/16 16:58 11/23/16 20:25 11/24/16 08:23 11/24/16 08:55 Bedside Glucose 91 mg/dl (70-99) 162 mg/dl (70-99) 66 mg/dl (70-99) 90 mg/dl (70-99) Test 11/24/16 12:06 Bedside Glucose 172 mg/dl (70-99) HbA1c: Test 11/22/16 05:39 Hemoglobin A1c 8.2 % (4.5-5.6) H Recent Pertinent Medications The patient is currently receiving: * Basal insulin: Lantus 60 units SQ HS * Bolus insulin: NovoLog per scale ACHS or Q6hrs while NPO Goal Range: Low 110 mg/dL - High 140 mg/dL Correction Factor: 12 mg/dL/unit Nutritional / Prandial insulin per carb ratio of 1 unit per 4 grams CHO consumed Outpatient Anti-Diabetic Meds Basal Insulin * Lantus 65 units SQ HS Bolus Insulin * Novolog TIDM - ~25 units per meal Assessment & Plan ASSESSMENT: * See progress note from 11/22/16 for more background info, in short: * BSGs ranging 66 - 162 mg/dl over the past 24hrs. * Fasting BSG below goal range. Will decrease basal insulin to avoid further episodes of hypoglycemia. * Pt requiring significantly less insulin compared to outpatient needs of ~140 units per day. * maintained good glycemic control yesterday with total of 80 units * will attempt to re-distribute regimen 50% basal/50% bolus based on total daily dose of 80 units PLAN FOR INPATIENT GLYCEMIC CONTROL: * Basal insulin * Lantus 45 units SQ HS * Bolus insulin * NovoLog per scale ACHS or Q6hrs while NPO * Goal Range: Low 110 mg/dL - High 140 mg/dL * Correction Factor: 18 mg/dL/unit * Nutritional / Prandial insulin per carb ratio of 1 unit per 6 grams CHO consumed RECOMMENDATIONS FOR DISCHARGE: * A1c of 8.2 % on 11/22/16 (increased from 7 % in June - likely from chemo/ steroids) * Recommend continuing home insulin regimen on discharge and titrate per outpatient provider. * Please note that the plan above was derived based on current level of insulin resistance and hospital stress. These recommendations are appropriate for inpatient admission only. Plan of care upon discharge will need to be reassessed to avoid potential outpatient hypo/hyperglycemia. Thank you.
[2016-11-24] MEDS ORDERED: BISACODYL 5 MG TABEC PO ONE (16:15)
[2016-11-24] MEDS ORDERED: LEVALBUTEROL/IPRATROPIUM NEB INH SCH (16:15)
[2016-11-24 18:27] LABS: HEMATOCRIT 35.3 % (42-52); MEAN CELL VOLUME 86.3 fL (80-100); MEAN CORPUSCULAR HEMOGLOBIN 29.3 pg (25-34); MEAN PLATELET VOLUME 8.8 fL (7.4-10.4); PLATELET COUNT 209 K/uL (130-400); RED BLOOD COUNT 4.09 M/uL (4.7-6.1); WHITE BLOOD COUNT 11.81 K/uL (4.8-10.8)
[2016-11-24 18:44] LABS: BUN/CREATININE RATIO 16.2 (10-20); CALCIUM 8.8 mg/dl (8.5-10.1); CREATININE 0.68 mg/dl (0.60-1.40); MAGNESIUM 1.9 mg/dl (1.8-2.4); POTASSIUM 4.3 mmol/L (3.5-5.1)
[2016-11-24] MEDS: OXYCODONE HCL IR 5 MG TAB (IMMEDIATE RELEASE) PO PRN (18:51)
[2016-11-24] MEDS: LEVALBUTEROL 1.25MG/0.5ML NEB INH SCH (19:25)
[2016-11-24] MEDS: IPRATROPIUM BROMIDE NEB SOLN 0.02% 2.5 ML VIAL INH SCH (19:25)
[2016-11-24] MEDS: UMECLIDINIUM-VILANTEROL (ANORO) INH SCH (21:00)
[2016-11-24] MEDS ORDERED: INSULIN GLARGINE SOLOSTAR 100 UNITS/ML 3 ML PEN SC SCH (21:00)
[2016-11-24] MEDS: GUAIFENESIN 600 MG TABCR PO SCH (21:28)
[2016-11-25] MEDS: ACETAMINOPHEN 325 MG TAB PO SCH ×2 (00:10→05:47)
[2016-11-25 01:59] VITALS: PULSE 91; O2SAT 94
[2016-11-25] MEDS: IPRATROPIUM BROMIDE NEB SOLN 0.02% 2.5 ML VIAL INH SCH ×2 (01:59→07:48)
[2016-11-25] MEDS: LEVALBUTEROL 1.25MG/0.5ML NEB INH SCH ×2 (01:59→07:48)
[2016-11-25 07:07] VITALS: BP 127/80; PULSE 78; TEMP 36.7; O2SAT 97
[2016-11-25 07:49] VITALS: PULSE 83; O2SAT 97
[2016-11-25] MEDS: POLYETHYLENE (MIRALAX) 17 GM PACK PO SCH (09:00)
--- NOTE | 2016-11-25 09:28 | DIAGNOSTIC IMAGING REPORT ---
CHEST ONE VIEW PORTABLE CLINICAL HISTORY: Chest tube removal. COMPARISON STUDY: Chest radiograph November 24, 2016. FINDINGS: The right chest tube has been removed. A small right pneumothorax has slightly increased in size since prior exam. Pleural separation now measures 1.5 cm, previously 1.1 cm. There are suspected pneumomediastinum. Extensive subcutaneous gas within the bilateral chest de paz, right greater left, and neck has slightly increased. Bibasilar opacities persist. IMPRESSION: 1. Slight increase in size of a small right pneumothorax following chest tube removal. 2. Interval increase in extensive subcutaneous gas within the lower neck and chest wall. Electronically signed by: Chad Kay M.D. 11/25/2016 9:27 AM Dictated Date/Time: 11/25/2016 9:24 AM
[2016-11-25] MEDS: LISINOPRIL 10 MG TAB PO SCH (09:46)
[2016-11-25] MEDS: FLUCONAZOLE 100 MG TAB PO SCH (09:46)
[2016-11-25] MEDS: NICOTINE 14 MG/24 HR TDSY TD SCH (09:46)
[2016-11-25] MEDS: EZETIMIBE 10MG TAB PO SCH (09:47)
[2016-11-25] MEDS: GUAIFENESIN 600 MG TABCR PO SCH (09:47)
[2016-11-25] MEDS: ASPIRIN 325 MG ECTAB PO SCH (09:47)
[2016-11-25] MEDS: DOCUSATE SODIUM 100 MG CAP PO SCH (09:47)
[2016-11-25] MEDS: SIMVASTATIN 80 MG TAB PO SCH (09:47)
[2016-11-25] MEDS: AMOXICILLIN/CLAVULANATE TAB 875 MG TAB PO SCH (09:47)
[2016-11-25] MEDS: PANTOprazole SOD 40 MG TAB PO SCH (09:47)
[2016-11-25] MEDS: PROPRANOLOL HCL 80 MG LA CAP PO SCH (09:47)
[2016-11-25] MEDS: ENOXAPARIN 40 MG/0.4 ML SYR SQ SCH (09:48)
[2016-11-25] MEDS: INSULIN ASPART 100 UNITS/ML 3 ML PEN SC SCH (09:56)
[2016-11-25] MEDS ORDERED: AMOX1TAB43 PO (10:01)
[2016-11-25] MEDS ORDERED: PRD10 PO (10:01)
--- NOTE | 2016-11-25 10:08 | Discharge Instructions ---
Discharge Instructions Date of Service Nov 25, 2016. Admission Reason for Admission: Non-Small Cell Lung Cancer Discharge Discharge Diagnosis / Problem: Same Discharge Goals Goal(s): Decrease discomfort (Use pain meds as needed.) Activity Recommendations Activity Limitations: as noted below Lifting Limitations: gradually increase as tolerated Exercise/Sports Limitations: gradually increase as tolerated May Resume Sexual Activity: when tolerated Shower/Bathe: may shower/bathe in 3 days . Instructions / Follow-Up Instructions / Follow-Up Call Dr Chappell on his cell phone for any problems. My office will call you about a follow up appointment. Remove all dressings and shower on 11-27-16. Walk!! !! No SMOKING!!!!! Current Hospital Diet Patient's current hospital diet: Diabetes Type 2 Diet Discharge Diet Recommended Diet: Diabetes Type 2 Diet Procedures Procedures Performed: Robotic Assisted Right Thoracscopy with Right Middle and Lower Lobectomies and Mediastinal Lymphadenectomy Pending Studies Studies pending at discharge: no Laboratory Results Hemoglobin A1c Test 11/22/16 05:39 Range/Units Estimated Average Glucose 189 mg/dl Hemoglobin A1c 8.2 H 4.5-5.6 % Medical Emergencies . Who to Call and When: Medical Emergencies: If at any time you feel your situation is an emergency, please call 911 immediately. . Non-Emergent Contact Non-Emergency issues call your: Surgeon . "Provider Documentation" section prepared by Stanley Chappell. . VTE Core Measure Inpt VTE Proph given/why not?: Enoxaparin (Lovenox)SQ, SCD's
[2016-11-25 10:41] VITALS: BP 127/80; PULSE 83; TEMP 36.7; O2SAT 97
--- NOTE | 2016-11-25 23:33 | DISCHARGE SUMMARY ---
DISCHARGE DIAGNOSES: 1. Stage IIIA nonsmall cell lung carcinoma, right lower lobe, right middle lobe. 2. Diabetes mellitus. 3. Hypertension. 4. History of cigarette smoking. POSTOPERATIVE DIAGNOSES: Same. PROCEDURE HOSPITAL COURSE: This is a 60-year-old male who was found to have a locally advanced nonsmall cell lung carcinoma of the right lower lobe involving the right middle lobe. We did a staging work and he is found to have IIIA disease with involvement of his subcarinal node and right level 4 nodes. The patient received neoadjuvant chemoradiation and I performed a mediastinoscopy and found that his mediastinal nodes had been sterilized. On 11/21/2016, the patient underwent a robot-assisted thoracoscopic bilobectomy with removal of his right middle lobe and right lower lobe and mediastinal lymphadenectomy. I discussed the pathology findings with Dr. Herberth Belle and apparently all of his lymph nodes are negative and he has had a very good response to chemotherapy and radiation with very few in the way of viable tumor cells left. The patient did very well with the surgery. He has a small air leak which resolved on postop day #2. He has some subcutaneous emphysema, but this was stable. I had a bit of a concern about the patient because his Aa gradient increased on postop day #3. The patient had some wheezing, I gave him corticosteroids as well as started him on Augmentin. He had a cough which was productive of some thick yellow sputum; however, this resolved very quickly and he had no cough on the morning of discharge. I tapered his steroids quite quickly over the next week. I also kept him on Augmentin for the next week. He had no fevers, no chills and was 97% on room air after ambulating. He had some subcutaneous emphysema and a very small pneumothorax on the post-chest tube removal x-ray. His incisions were clean. I was quite happy with him. I have him return to the office in a week or so with an x-ray and told to call me should any problems arise. I did continue steroids at a tapering dose as well as Augmentin for the next week.
== END 2016-11-25 11:43 | disposition home or self-care (01) | DRG 165 ==
LOC: C.ACU 05:19 → C.MSW 06:55 → ENRESERV 16:23
PROVIDERS: ADMIT Surgery; ATTEND Surgery
PROC: 0BTD4ZZ Resection of Right Middle Lung Lobe, Percutaneous Endoscopic Approach (ICD-10-PCS; principal; 2016-11-21 07:30)
PROC: 07T74ZZ Resection of Thorax Lymphatic, Percutaneous Endoscopic Approach (ICD-10-PCS; principal; 2016-11-21 07:30)
PROC: 0BTF4ZZ Resection of Right Lower Lung Lobe, Percutaneous Endoscopic Approach (ICD-10-PCS; principal; 2016-11-21 07:30)
DX: C34.81 Malignant neoplasm of overlapping sites of right bronchus and lung (principal); F17.200 Nicotine dependence, unspecified, uncomplicated; I10 Essential (primary) hypertension; E78.5 Hyperlipidemia, unspecified; E11.9 Type 2 diabetes mellitus without complications; K21.9 Gastro-esophageal reflux disease without esophagitis; K59.00 Constipation, unspecified

== ENCOUNTER → 2016-11-27 | Outpatient (CLI) | payer OTHER ==
[~2016-11-27] MED LIST changes: +AMOX1TAB43 PO; +PRD10 PO
--- NOTE | 2016-11-27 16:00 | DIAGNOSTIC IMAGING REPORT ---
TEMPORARY HISTORY: -old Unknown follow-up study of pulmonary nodule. Extensive subcutis emphysema. Recent chest tube removal. COMPARISON: Chest radiograph 11/25/2016. TECHNIQUE: Portable PA and lateral views of the chest. FINDINGS: Extensive subcutaneous emphysema of the chest has worsened from prior study. Right-sided pneumothorax has mildly increased in the interval with 3.6 cm of visceral pleural separation. Postsurgical changes are again seen involving the right lung apex. Pneumomediastinum is also noted. Subsegmental bibasilar opacities are noted suggesting atelectasis. The bones are grossly intact. IMPRESSION: 1. Increased size of right pneumothorax, now with 3.6 cm of visceral pleural separation. 2. Pneumomediastinum. 3. Worsened progressive diffuse subcutaneous emphysema of the chest wall. These findings suggest pleural leak. The above report was generated using voice recognition software. It may contain grammatical, syntax or spelling errors. Electronically signed by: Amado Arroyo M.D. 11/27/2016 3:49 PM Dictated Date/Time: 11/27/2016 3:46 PM
== END | disposition home or self-care (01) ==
LOC: C.RAD 15:25
PROVIDERS: ATTEND Surgery
DX: R91.1 Solitary pulmonary nodule (principal); J98.2 Interstitial emphysema

== ENCOUNTER → 2016-11-29 | Outpatient (CLI) | payer OTHER ==
--- NOTE | 2016-11-29 09:35 | DIAGNOSTIC IMAGING REPORT ---
TWO VIEW CHEST CLINICAL HISTORY: Pneumothorax. FINDINGS: PA and lateral chest radiographs are compared to study dated 11/27/2016. The examination is degraded by extensive subcutaneous emphysema. This obscures fine parenchymal detail. The cardiac silhouette is unremarkable. Pneumomediastinum is again noted. There is developing patchy airspace consolidation at the left lung base. There are small pleural effusions, right larger left. This is best seen on the lateral projection. Suture material projects over the right upper lung end of the right lung base. There is a small to moderate right apical pneumothorax with at least 4 cm of pleural separation. No definite left-sided pneumothorax is seen. The bony thorax appears intact. IMPRESSION: 1. The examination is significantly degraded by extensive subcutaneous emphysema. 2. There is a small to moderate right apical pneumothorax. This is unchanged to slightly increased in size from 11/27/2016. 3. Patchy airspace consolidation is developing at the left lung base. There are small pleural effusions. 4. Pneumomediastinum. Electronically signed by: Alec Rogers M.D. 11/29/2016 9:34 AM Dictated Date/Time: 11/29/2016 9:31 AM
== END | disposition home or self-care (01) ==
LOC: C.RAD 09:12
PROVIDERS: ATTEND Surgery
DX: J93.9 Pneumothorax, unspecified (principal); J98.2 Interstitial emphysema

== ENCOUNTER → 2016-12-06 | Outpatient (CLI) | payer OTHER ==
--- NOTE | 2016-12-06 09:33 | DIAGNOSTIC IMAGING REPORT ---
CHEST 2 VIEWS ROUTINE CLINICAL HISTORY: 60 years-old Male presenting with PNEUMOTHORAX J93.9. TECHNIQUE: PA and lateral views of the chest were obtained. COMPARISON: 11/29/2016. FINDINGS: Evidence of pneumomediastinum with diffuse soft tissue emphysema slightly decreased from prior. Cardiac mediastinal silhouette otherwise normal. Suture margins noted in the right lower lung from prior lobectomy. Persistent moderate right hydropneumothorax, not definitely changed from prior. Apparent left basilar opacities on prior exam are no longer evident. Left pleural space clear. Osseous structures normal. Upper abdomen normal. IMPRESSION: 1. Persistent moderate right hydropneumothorax status post lobectomy suggests bronchopleural fistula. 2. Persistent pneumomediastinum and soft tissue emphysema. Electronically signed by: Herberth Palacios M.D. 12/06/2016 9:32 AM Dictated Date/Time: 12/06/2016 9:28 AM
== END | disposition home or self-care (01) ==
LOC: C.RAD 09:03
PROVIDERS: ATTEND Physician Assistant
DX: J93.9 Pneumothorax, unspecified (principal); J43.9 Emphysema, unspecified

== ENCOUNTER → 2016-12-20 | Outpatient (CLI) | payer OTHER ==
--- NOTE | 2016-12-20 10:16 | DIAGNOSTIC IMAGING REPORT ---
CHEST 2 VIEWS ROUTINE CLINICAL HISTORY: 61 years-old Male presenting with C34.90 Non-small cell lung [id number]. TECHNIQUE: PA and lateral views of the chest were obtained. COMPARISON: 12/06/2016. FINDINGS: Interval decrease in subcutaneous emphysema and pneumomediastinum. Cardiomediastinal silhouette normal. Persistent right pneumothorax with a pleural separation of 2.3 cm, decreased from prior. Persistent small to moderate right pleural effusion and right basilar opacity. Suture margins noted at the right apex and right lung base from prior wedge resections. Left lung and pleural space clear. Osseous structures normal. Upper abdomen normal. IMPRESSION: 1. Interval decrease in subcutaneous emphysema and pneumomediastinum. 2. Interval decrease in right pneumothorax. 3. Persistent right pleural effusion and right basilar opacity, likely atelectasis. 4. Postsurgical changes of the right lung. Electronically signed by: Herberth Palacios M.D. 12/20/2016 10:15 AM Dictated Date/Time: 12/20/2016 10:13 AM
== END | disposition home or self-care (01) ==
LOC: C.RAD 09:52
PROVIDERS: ATTEND Surgery
DX: C34.90 Malignant neoplasm of unspecified part of unspecified bronchus or lung (principal)

== ENCOUNTER → 2017-01-04 | Outpatient (CLI) | payer OTHER ==
[2017-01-04 12:34] LABS: BASO % 0.7 %; BASO ABS # 0.05 K/uL (0-0.2); COMPLETE YES; EOS % 8.9 %; HEMATOCRIT 38.2 % (42-52); IG% 0.3 %; LYMPH % 7.9 %; MEAN CELL VOLUME 89.7 fL (80-100); MEAN CORPUSCULAR HGB CONC 33.5 g/dl (32-36); MEAN PLATELET VOLUME 9.4 fL (7.4-10.4); MONO % 16.2 %; PLATELET COUNT 378 K/uL (130-400); RED BLOOD COUNT 4.26 M/uL (4.7-6.1); WHITE BLOOD COUNT 7.64 K/uL (4.8-10.8)
[2017-01-04 13:01] LABS: ESTIMATED AVERAGE GLUCOSE 148 mg/dl; HA1C FLAG Normal (Normal)
[2017-01-04 13:05] LABS: ALT/SGPT 23 U/L (12-78); BLOOD UREA NITROGEN 13 mg/dl (7-18); BUN/CREATININE RATIO 17.4 (10-20); CALCIUM 8.9 mg/dl (8.5-10.1); CARBON DIOXIDE 29 mmol/L (21-32); CHLORIDE 103 mmol/L (98-107); CHOLESTEROL 135 mg/dl (0-200); CREATININE 0.77 mg/dl (0.60-1.40); GLUCOSE 134 mg/dl (70-99); POTASSIUM 3.6 mmol/L (3.5-5.1); SODIUM 138 mmol/L (136-145); TRIGLYCERIDES 96 mg/dl (0-150); VERY LOW DENSITY LIPOPROT CALC 19 mg/dl
[2017-01-04 13:08] LABS: ALB/GLOB RATIO 0.8 (0.9-2); ALKALINE PHOSPHATASE 111 U/L (45-117); AST/SGOT 18 U/L (15-37); CHOLESTEROL/HDL RATIO 3.3; HDL CHOLESTEROL 41 mg/dl; LDL CHOLESTEROL CALCULATED 75 mg/dl
== END | disposition home or self-care (01) ==
LOC: C.LABBFT 09:42
PROVIDERS: ATTEND Internal Medicine
DX: E11.29 Type 2 diabetes mellitus with other diabetic kidney complication (principal); E11.65 Type 2 diabetes mellitus with hyperglycemia

== ENCOUNTER → 2017-02-25 | Outpatient (CLI) | payer OTHER ==
--- NOTE | 2017-02-25 11:37 | DIAGNOSTIC IMAGING REPORT ---
PET/CT SKULL-THIGH HISTORY: Lung carcinoma NON SMALL CELL LUNG CANCER TECHNIQUE: PET/CT was performed from the base of the skull through the pelvis following the intravenous administration of 15.2 mCi of F18-FDG. Non-contrast CT imaging was performed over the same range without breath-hold for attenuation correction of PET images and anatomic correlation, but not for primary interpretation as it is not of standard diagnostic quality. CT DOSE: COMPARISON: 09/10/2016 FINDINGS: HEAD AND NECK: There is no FDG-avid disease or significant lymphadenopathy in the imaged portions of the head and the neck. CHEST: Interval right lower lobectomy. No significant hilar or mediastinal adenopathy. The right infrahilar mass appears to have been removed. There is a right pleural effusion. This shows a slight increase in activity at its medial and lateral extent measuring 1.8 SUVs at maximum. This value is of uncertain given the patient's recent operative change. ABDOMEN/PELVIS: Below the diaphragm, tracer is distributed physiologically in the gastrointestinal and genitourinary tracts. There is no significant lymphadenopathy and no FDG-avid disease. MUSCULOSKELETAL: There is no FDG-avid or destructive bone lesion. IMPRESSION: 1. Interval right lower lobectomy with resection of the patient's right infrahilar mass and pulmonary nodularity. 2. Interval right pleural effusion with minimal residual activity at the right infrahilar region. SUVs do not exceed 1.9 3. These findings may simply be on a postoperative basis, although continued close follow-up is recommended to exclude the possibility of recurrent or residual disease. 4. Study is otherwise negative. The above report was generated using voice recognition software. It may contain grammatical, syntax or spelling errors. Electronically signed by: James Mercado M.D. 02/25/2017 11:36 AM Dictated Date/Time: 02/25/2017 11:19 AM
== END | disposition home or self-care (01) ==
LOC: C.PET 08:44
PROVIDERS: ATTEND Internal Medicine Hematology & Oncology
DX: C34.31 Malignant neoplasm of lower lobe, right bronchus or lung (principal); J90 Pleural effusion, not elsewhere classified; Z90.2 Acquired absence of lung [part of]

== ENCOUNTER → 2017-03-05 | Outpatient (CLI) | payer OTHER ==
[~2017-03-05] MED LIST changes: +GABA-113 PO; +GABAPENTIN 300 MG CAP PO ONE; +Gabapentin PO
--- NOTE | 2017-03-05 09:19 | DIAGNOSTIC IMAGING REPORT ---
CHEST 2 VIEWS ROUTINE HISTORY: 61 years-old Male C34.90 Non-small cell lung [id number] COMPARISON: PET CT 02/25/2017, chest radiograph 01/28/2017 TECHNIQUE: PA and lateral views of the chest FINDINGS: Cardiac silhouette is within normal limits. Atherosclerosis of the aorta. Left lung is generally clear. Postoperative changes of right lower lobectomy with suture material seen at the right lung apex and right hilar region. No pneumothorax. Persistent [id number] right pleural effusion with right basilar consolidation. Bones appear grossly intact. IMPRESSION: 1. Stable exam with persistent small to moderate right pleural effusion with right basilar consolidation suggesting atelectasis/scarring. 2. Postoperative changes of the right lung. The above report was generated using voice recognition software. It may contain grammatical, syntax or spelling errors. Electronically signed by: Amado Arroyo M.D. 03/05/2017 9:17 AM Dictated Date/Time: 03/05/2017 9:15 AM
== END | disposition home or self-care (01) ==
LOC: C.RAD 08:40
PROVIDERS: ATTEND Physician Assistant
DX: C34.90 Malignant neoplasm of unspecified part of unspecified bronchus or lung (principal); J90 Pleural effusion, not elsewhere classified

== ENCOUNTER → 2017-03-05 | Day surgery (SDC) | payer OTHER ==
[~2017-03-05] VITALS: Ht 177.8 cm; Wt 80.0 kg
[2017-03-05 12:25] VITALS: BP 122/68; PULSE 70; TEMP 36.3; O2SAT 99; Ht 177.8 cm; Wt 80.0 kg
--- NOTE | 2017-03-05 13:30 | Discharge Instructions ---
Discharge Instructions Date of Service Mar 05, 2017. Visit Reason for Visit: Pleural Effusion Discharge Discharge Diagnosis / Problem: Pleural Effusion Discharge Goals Goal(s): Decrease discomfort, Improve function, Learn about illness Activity Recommendations Activity Limitations: resume your previous activity (in 24 hours) Anesthesia . Post Anesthesia Instructions: If you have had General Anesthesia or IV Sedation: * Do not drive today. * Resume driving when surgeon permits. * Do not make important decisions or sign legal documents today. * Call surgeon for: 1. Temperature elevations greater than 101 degrees F. 2. Uncontrollable pain. 3. Excessive bleeding. 4. Persistent nausea and vomiting. 5. Medication intolerance (nausea, vomiting or rash). * For nausea and vomiting use only clear liquids such as: tea, soda, bouillon until nausea subsides, then gradually increase diet as tolerated. * If you have any concerns or questions, call your surgeon's office. If physician is unavailable and it is an emergency, call 911 or go to the nearest emergency room. . Instructions / Follow-Up Instructions / Follow-Up 1. You may remove dressing in 3 days and shower thereafter. 2. Office appointment with Dr. Chappell in 1 month. Office will call you with date and time of appointment. Go to hospital one hour before appointment to have a chest x-ray taken. Diet Recommendations Recommended Home Diet: resume previous diet Pending Studies Studies pending at discharge: no Medical Emergencies . Who to Call and When: Medical Emergencies: If at any time you feel your situation is an emergency, please call 911 immediately. . Non-Emergent Contact Non-Emergency issues call your: Surgeon Call Non-Emergent contact if: you have a fever, your pain is not controlled . . "Provider Documentation" section prepared by Douglas Anderson. .
--- NOTE | 2017-03-05 13:49 | DIAGNOSTIC IMAGING REPORT ---
CHEST ONE VIEW PORTABLE HISTORY: 61 years-old Male thoracentesis status post thoracentesis with pleural effusion COMPARISON: Chest radiograph 03/05/2017 at 9:04 AM TECHNIQUE: Portable AP view of the chest FINDINGS: Cardiac silhouette is within normal limits. Atherosclerosis of the aorta. Left lung is generally clear. The patient is slightly rotated to the right. Postoperative changes of prior right lower lobectomy with suture material again seen at the right lung apex and right hilar region. Decreased size of small right pleural effusion status post thoracentesis. No postprocedural pneumothorax. Minimal right lung base atelectasis. Bones of the chest appear grossly intact. IMPRESSION: Decreased size of small right pleural effusion status post thoracentesis. No postprocedural pneumothorax. The above report was generated using voice recognition software. It may contain grammatical, syntax or spelling errors. Electronically signed by: Amado Aroryo M.D. 03/05/2017 1:48 PM Dictated Date/Time: 03/05/2017 1:46 PM
--- NOTE | 2017-03-05 14:19 | OPERATIVE REPORT ---
DATE OF OPERATION: 03/05/2017 PREOPERATIVE DIAGNOSIS: Postoperative right pleural effusion. POSTOPERATIVE DIAGNOSIS: Same. PROCEDURE: Right thoracentesis under ultrasound guidance. SURGEON: Dr. Chappell. CO-SURGEON: Kailash Anderson PA-C. ANESTHESIA: Local. SPECIFICS OF PROCEDURE: The patient was seen in the office today a few months after surgery, and had a persistent right pleural effusion. We elected to proceed with a thoracentesis. We sent this up to be done in the medical treatment unit. OPERATION AND FINDINGS: In the medical treatment unit on 03/05/2017 the patient was set in the upright position on the edge of the stretcher and after appropriate timeout had been called, ultrasound was used to localize a good window. He was then prepped and draped in the usual sterile fashion and a 25 gauge needle with 1% Xylocaine was used to anesthetize the skin and subcutaneous tissues. A large bore needle was used to anesthetize the deeper muscle layers and pleura. Free flowing serous fluid was drained. A guidewire was inserted through the needle and needle removed. This insertion tract was gently dilated up with an introducer sheath which was then removed. A triple lumen catheter was then slid over the guidewire without difficulty up to 17 cm. A total of 700 mL of yellow serous fluid was drained. He had reexpansion pain with coughing. He tolerated it quite well. A chest x-ray is pending at this point. We removed the catheter and placed and antimicrobial dressing over this. He tolerated it well. I attest to the content of the Intraoperative Record and any orders documented therein. Any exception s are noted below.
[2017-03-05 14:30] LABS: PLEURAL FLUID APPEARANCE CLOUDY; PLEURAL FLUID COLOR AMBER; PLEURAL FLUID MONONUC RELAT 97.6 %; PLEURAL FLUID POLYNUC 2.4 %; PLEURAL FLUID SOURCE RIGHT LUNG; PLEURAL FLUID WBC (A) 2148 /uL
== END | disposition home or self-care (01) ==
LOC: C.ACU 12:01
PROVIDERS: ATTEND Surgery
DX: J90 Pleural effusion, not elsewhere classified (principal)

== ENCOUNTER → 2017-03-12 | Outpatient (CLI) | payer OTHER ==
[~2017-03-12] MED LIST changes: -AMOX1TAB43 PO; -GABAPENTIN 300 MG CAP PO ONE; -OMEP20CA59 PO; -PRD10 PO; -TRAM-10 PO
--- NOTE | 2017-03-12 10:01 | DIAGNOSTIC IMAGING REPORT ---
CHEST 2 VIEWS ROUTINE CLINICAL HISTORY: J90 Pleural [id number] COMPARISON STUDY: 03/05/2017 FINDINGS: The cardiac and mediastinal contours remain stable. Postsurgical changes are present on the right. There is an increasing right pleural effusion with associated basilar atelectasis/consolidation. The left lung appears clear. There is no failure.[ IMPRESSION: Interval increase in the size the right pleural effusion, with associated right basilar atelectasis/consolidation. Otherwise stable chest. Electronically signed by: Waldo Rodriguez M.D. 03/12/2017 9:59 AM Dictated Date/Time: 03/12/2017 9:57 AM
== END | disposition home or self-care (01) ==
LOC: C.RAD 09:28
PROVIDERS: ATTEND Surgery
DX: J90 Pleural effusion, not elsewhere classified (principal)

== ENCOUNTER 2017-03-20 13:39 | Day surgery (SDC) | payer OTHER ==
[~2017-03-20] VITALS: Ht 177.8 cm; Wt 76.5 kg
[2017-03-20 14:06] VITALS: BP 116/67; PULSE 96; TEMP 36.5; O2SAT 98; Ht 177.8 cm; Wt 76.5 kg
[2017-03-20] MEDS ORDERED: LIDOCAINE HCL 1% 20 ML VIAL ONE (15:47)
--- NOTE | 2017-03-20 15:55 | Discharge Instructions ---
Discharge Instructions Date of Service Mar 20, 2017. Visit Reason for Visit: Right Pleural Effusion Discharge Discharge Diagnosis / Problem: Right Pleural Effusion Discharge Goals Goal(s): Decrease discomfort, Improve function, Learn about illness Activity Recommendations Activity Limitations: resume your previous activity (in 24 hours) Shower/Bathe: keep incision dry 1. Do not shower or take bath until cleared to do so by Dr. Chappell. It is ok to sponge bath. Anesthesia . Post Anesthesia Instructions: If you have had General Anesthesia or IV Sedation: * Do not drive today. * Resume driving when surgeon permits. * Do not make important decisions or sign legal documents today. * Call surgeon for: 1. Temperature elevations greater than 101 degrees F. 2. Uncontrollable pain. 3. Excessive bleeding. 4. Persistent nausea and vomiting. 5. Medication intolerance (nausea, vomiting or rash). * For nausea and vomiting use only clear liquids such as: tea, soda, bouillon until nausea subsides, then gradually increase diet as tolerated. * If you have any concerns or questions, call your surgeon's office. If physician is unavailable and it is an emergency, call 911 or go to the nearest emergency room. . Instructions / Follow-Up Instructions / Follow-Up 1. Keep your scheduled appointment with Dr. Chappell on March 28, 2017 @ 9: 30. Go to hospital one hour before appointment to have a chest x-ray taken. 2. Visiting nurses will assist you in draining your pleurx catheter. Keep of record of amount drained and call Dr. Chappell's office every with amounts. Diet Recommendations Recommended Home Diet: resume previous diet Pending Studies Studies pending at discharge: no Medical Emergencies . Who to Call and When: Medical Emergencies: If at any time you feel your situation is an emergency, please call 911 immediately. . Non-Emergent Contact Non-Emergency issues call your: Surgeon Call Non-Emergent contact if: you have a fever, your pain is not controlled . . "Provider Documentation" section prepared by Douglas Anderson. .
[2017-03-20 16:25] VITALS: BP 131/72; PULSE 77; TEMP 37.1; O2SAT 97
--- NOTE | 2017-03-20 16:40 | DIAGNOSTIC IMAGING REPORT ---
SINGLE VIEW CHEST CLINICAL HISTORY: Pleural effusion. FINDINGS: An AP, portable, upright chest radiograph is compared to study dated 03/12/2017 and correlated with chest CT dated 10/03/2016. The examination is degraded by portable technique and patient rotation. The cardiomediastinal silhouette is unremarkable. Emphysema and chronic interstitial thickening are similar to previous. A pleural drain has been placed at the right lung base. There is a small residual pleural effusion with associated atelectasis. This has decreased in size from 03/12/2017. Suture material is seen at the right apex. The left lung appears clear. A trace right apical pneumothorax is suspected. The skeletal structures are osteopenic. The bony thorax is grossly intact. IMPRESSION: 1. A pleural drain has been placed at the right lung base. There is a small residual right pleural effusion which has decreased in size from 03/12/2017. 2. Suspect a small right apical pneumothorax. 3. The left lung appears clear. 4. Emphysema. Electronically signed by: Alec Rogers M.D. 03/20/2017 4:39 PM Dictated Date/Time: 03/20/2017 4:36 PM
[2017-03-20 16:46] LABS: PLEURAL FLUID TOTAL PROTEIN 3.6 g/dl
--- NOTE | 2017-03-20 19:46 | OPERATIVE REPORT ---
DATE OF OPERATION: 03/20/2017 PROCEDURE: Insertion of a right PleurX catheter. SURGEON: Dr. Chappell. ANESTHESIA: Local. SPECIFICS OF PROCEDURE: Mr. Cobian he underwent a thoracentesis about 2 weeks ago and had some improvement but had a great deal of pain. He presents back and is feeling better from a pain standpoint. He also had a viral syndrome and he got over that, he is feeling better but still bit short of breath and asked this be drained yesterday in the office. We set him up for a PleurX catheter insertion today. DESCRIPTION OF THE PROCEDURE: On 03/20/2017, the patient's right side was identified as the correct side. During the timeout, an ultrasound showed a good window. The patient was prepped and draped in usual sterile fashion. Skin wheal was raised with 25 gauge needle, 1% Xylocaine. A large bore needle was used to anesthetize the deeper subcutaneous tissues until we get free flowing of emily fluid. A guidewire was inserted through the needle and needle removed. This insertion site was opened up about 1 cm. About 10 cm anterior and inferior to this, another skin wheal was raised with 25 gauge needle, 1% Xylocaine and a 1 cm incision was made. A long needle was used to anesthetize subcutaneous tissues between these 2 incisions and a tunneler was attached to the PleurX catheter and tunneled from the anterior to posterior incision. The tunnel was then removed. An introducer sheath with an inner cannula was slid over the guidewire posteriorly and the inner cannulated guidewire removed and the PleurX catheter was inserted through this peel away sheath which was removed. Two separate 3-0 silk sutures used to close the posterior incision and 3-0 silk was used to anchor the catheter to the patient's skin anteriorly. About 500 mL of a rust-colored fluid was drained. He had minimal pain with this. His chest x-ray looked very good. We will set him up for daily drainage and I will see him back next week. Appropriate studies were sent. The pH 7.5 did not indicate empyema. I attest to the content of the Intraoperative Record and any orders documented therein. Any exception s are noted below.
--- NOTE | 2017-03-28 06:40 | EDITING REQUIRED CODING QUERY ---
TREATMENT RENDERED WITHOUT A DIAGNOSIS To promote full compliance with coding requirements relating to patient care, physician participation is requested in all cases of data developer uncertainty. Please assist us with the question(s) below: Coding Question: The patient is receiving INSERTION OF RIGHT PLEURX CATHETER, as noted in the PROCEDURE REPORT of the record. Please document the diagnosis that is being addressed by the medication/treatment. Provider Response: Recurrent right pleural effusion. Thank you Rosaura Payne
[2017-07-04] MEDS ORDERED: GABA-113 PO (15:06)
[2017-08-05] MEDS ORDERED: HUMALOG SQ (10:16)
[2017-11-08] MEDS ORDERED: NORT25CA PO (10:20)
== END 2017-03-20 16:28 | disposition home or self-care (01) ==
LOC: C.ACU 13:39
PROVIDERS: ATTEND Surgery
DX: J90 Pleural effusion, not elsewhere classified (principal)

== ENCOUNTER → 2017-03-28 | Outpatient (CLI) | payer OTHER ==
--- NOTE | 2017-03-28 13:03 | DIAGNOSTIC IMAGING REPORT ---
CHEST 2 VIEWS ROUTINE CLINICAL HISTORY: J90 Pleural [id number] pleural effusion COMPARISON STUDY: 03/20/2017 FINDINGS: Slight increase in volume of right basilar effusion. Right basilar chest tube is unchanged in appearance. Pleural thickening right apex is similar. No major pneumothorax at the current time. Minimal infiltrative change left base unaltered. IMPRESSION: 1. Slight increase in volume of a small right basilar pleural effusion. 2. No significant pneumothorax although there is slightly progressive fluid accumulation over the right apex which may indicate a localized hydropneumothorax. 3. Right basilar chest drainage tube is unaltered. The above report was generated using voice recognition software. It may contain grammatical, syntax or spelling errors. Electronically signed by: James Mercado M.D. 03/28/2017 1:02 PM Dictated Date/Time: 03/28/2017 1:00 PM
== END | disposition home or self-care (01) ==
LOC: C.RAD 12:07
PROVIDERS: ATTEND Surgery
DX: J90 Pleural effusion, not elsewhere classified (principal)

== ENCOUNTER → 2017-04-11 | Outpatient (CLI) | payer OTHER ==
--- NOTE | 2017-04-11 09:58 | DIAGNOSTIC IMAGING REPORT ---
CHEST 2 VIEWS ROUTINE CLINICAL HISTORY: J90 Pleural [id number] COMPARISON STUDY: 03/28/2017 FINDINGS: The cardiac images so contours remain stable. A right basilar pleural drain remains unchanged in position. There is a persistent right pleural effusion. Left lung is clear. There are associated right basilar opacities, likely representing compressive atelectasis.[ IMPRESSION: No change in the position of right-sided pleural drain. No significant change in the size the right pleural effusion. Electronically signed by: Waldo Rodriguez M.D. 04/11/2017 9:57 AM Dictated Date/Time: 04/11/2017 9:56 AM
== END | disposition home or self-care (01) ==
LOC: C.RAD 09:38
PROVIDERS: ATTEND Physician Assistant
DX: J90 Pleural effusion, not elsewhere classified (principal)

== ENCOUNTER → 2017-04-25 | Outpatient (CLI) | payer OTHER ==
--- NOTE | 2017-04-25 10:05 | DIAGNOSTIC IMAGING REPORT ---
TWO VIEW CHEST CLINICAL HISTORY: Pneumothorax.. FINDINGS: PA and lateral chest radiographs are compared to study dated 04/11/2017 and correlated with chest CT dated 10/03/2016. The cardiomediastinal silhouette is unremarkable. A pleural drain at the right lung base has been removed. A small to moderate volume of pleural fluid at the right lung base is unchanged. This tracks to the right apex. Advanced emphysema and chronic interstitial thickening are similar to previous. Volume loss in the right lung is consistent with a history of previous surgical resection. The left lung appears clear. Suture material is noted at the right apex. There is no pneumothorax. The skeletal structures are osteopenic. The bony thorax appears intact. IMPRESSION: 1. A pleural drain at the right lung base has been removed. No pneumothorax is identified. 2. A small to moderate volume of pleural fluid is again seen in the right lung base and tracks to the right apex. This has not significantly changed from 04/11/2017. 3. Emphysema and postoperative change from right-sided pulmonary resection are again noted. Electronically signed by: Alec Rogers M.D. 04/25/2017 10:04 AM Dictated Date/Time: 04/25/2017 9:59 AM
== END | disposition home or self-care (01) ==
LOC: C.RAD 09:36
PROVIDERS: ATTEND Surgery
DX: J93.9 Pneumothorax, unspecified (principal); J81.1 Chronic pulmonary edema; J43.9 Emphysema, unspecified

== ENCOUNTER → 2017-06-25 | Outpatient (CLI) | payer OTHER ==
[~2017-06-25] MED LIST changes: +FENTANYL CITRATE INJ 50 MCG/1 ML 2 ML VIAL ONE
--- NOTE | 2017-06-25 10:10 | DIAGNOSTIC IMAGING REPORT ---
CHEST 2 VIEWS ROUTINE CLINICAL HISTORY: J90 Pleural [id number] COMPARISON STUDY: April 25, 2017 FINDINGS: The cardiac and sternal contours remain stable. Postsurgical changes are present on the right. There is a persistent right pleural effusion. Minimally increased right basal markings likely representing compressive atelectasis. The left lung is clear.[ IMPRESSION: 1. Postsurgical changes in the right hemithorax 2. Persistent right pleural effusion. No acute findings. Electronically signed by: Waldo Rodriguez M.D. 06/25/2017 10:09 AM Dictated Date/Time: 06/25/2017 10:07 AM
== END | disposition home or self-care (01) ==
LOC: C.RAD 09:41
PROVIDERS: ATTEND Surgery
DX: J90 Pleural effusion, not elsewhere classified (principal); R91.8 Other nonspecific abnormal finding of lung field

== ENCOUNTER → 2017-07-09 | Outpatient (CLI) | payer OTHER ==
[~2017-07-09] MED LIST changes: -FENTANYL CITRATE INJ 50 MCG/1 ML 2 ML VIAL ONE; -Gabapentin PO; -HYDR-5688 PO
[2017-07-09 12:34] LABS: BASO % 0.5 %; BASO ABS # 0.04 K/uL (0-0.2); EOS % 4.7 %; EOS ABS # 0.34 K/uL (0-0.5); HEMATOCRIT 41.9 % (42-52); IG# 0.02 K/uL (0.00-0.02); LYMPH % 9.5 %; LYMPH ABS # 0.69 K/uL (1.2-3.4); MEAN CELL VOLUME 85.9 fL (80-100); MEAN CORPUSCULAR HEMOGLOBIN 28.7 pg (25-34); MEAN CORPUSCULAR HGB CONC 33.4 g/dl (32-36); MONO % 12.2 %; MONO ABS # 0.89 K/uL (0.11-0.59); NEUT % 72.8 %; PLATELET COUNT 350 K/uL (130-400); RED CELL DISTRIBUTION WIDTH CV 16.7 % (11.5-14.5); RED CELL DISTRIBUTION WIDTH SD 52.7 fL (36.4-46.3); WHITE BLOOD COUNT 7.28 K/uL (4.8-10.8)
[2017-07-09 12:51] LABS: HEMOGLOBIN A1C 6.7 % (4.5-5.6)
[2017-07-09 13:22] LABS: ALBUMIN 3.5 gm/dl (3.4-5.0); ALT/SGPT 26 U/L (12-78); AST/SGOT 13 U/L (15-37); BLOOD UREA NITROGEN 10 mg/dl (7-18); CALCIUM 9.1 mg/dl (8.5-10.1); CARBON DIOXIDE 28 mmol/L (21-32); CHOLESTEROL 108 mg/dl (0-200); CREATININE 0.73 mg/dl (0.60-1.40); GLUCOSE 71 mg/dl (70-99); POTASSIUM 4.2 mmol/L (3.5-5.1); SODIUM 139 mmol/L (136-145)
[2017-07-09 13:27] LABS: ALKALINE PHOSPHATASE 117 U/L (45-117); LDL CHOLESTEROL CALCULATED 49 mg/dl; TOTAL PROTEIN 7.1 gm/dl (6.4-8.2)
== END | disposition home or self-care (01) ==
LOC: C.LABBFT 09:06
PROVIDERS: ATTEND Internal Medicine
DX: E11.29 Type 2 diabetes mellitus with other diabetic kidney complication (principal); Z12.5 Encounter for screening for malignant neoplasm of prostate

== ENCOUNTER → 2017-08-08 | Outpatient (CLI) | payer OTHER ==
[~2017-08-08] MED LIST changes: -ALBUAER INH; +HUMALOG SQ; -NVLG SC; -UMEC1AER INH
--- NOTE | 2017-08-08 11:06 | DIAGNOSTIC IMAGING REPORT ---
CHEST 2 VIEWS ROUTINE CLINICAL HISTORY: R91.8 Lung mass COMPARISON STUDY: 06/25/2017 FINDINGS: The heart is normal in size. There is pulmonary emphysema. Postsurgical changes are present on the right. There is a stable right pleural effusion. There is an equivocal 8 mm right midlung zone nodule.[ IMPRESSION: 1. Stable postsurgical changes within the right hemithorax 2. Equivocal 8 mm right midlung zone nodule 3. Stable right pleural effusion Electronically signed by: Waldo Rodriguez M.D. 08/08/2017 11:05 AM Dictated Date/Time: 08/08/2017 11:03 AM
== END | disposition home or self-care (01) ==
LOC: C.RAD 10:34
PROVIDERS: ATTEND Physician Assistant
DX: R91.8 Other nonspecific abnormal finding of lung field (principal)

== ENCOUNTER 2017-08-13 09:27 | Day surgery (SDC) | payer OTHER ==
[2017-08-05 10:17] VITALS: BMI 26.0
--- NOTE | 2017-08-05 10:53 | PAT Medication Instructions ---
Service Date August 05, 2017. Current Home Medication List Aspirin (Aspirin Ec), 325 MG PO QAM Ezetimibe (Zetia), 10 MG PO QAM Gabapentin (Neurontin), 900 MG PO TID Insulin Glargine (Lantus), 65 UNITS SC QPM Lisinopril (Zestril), 10 MG PO QAM Propranolol Hcl (Propranolol Hcl Er), 80 MG PO QAM Simvastatin (Zocor), 80 MG PO QAM [Humalog], 1 DOSE SQ TID Medication Instructions For Your Scheduled Surgery -Check with your surgeon for instructions for: Aspirin (Aspirin Ec), 325 MG PO QAM - Hold the following medications the morning of surgery: Ezetimibe (Zetia), 10 MG PO QAM [Humalog], 1 DOSE SQ TID Lisinopril (Zestril), 10 MG PO QAM - Take the following medications the morning of surgery with a sip of water: Gabapentin (Neurontin), 900 MG PO TID Propranolol Hcl (Propranolol Hcl Er), 80 MG PO QAM Simvastatin (Zocor), 80 MG PO QAM - Take the following medications as scheduled the night before surgery: Gabapentin (Neurontin), 900 MG PO TID Insulin Glargine (Lantus), 65 UNITS SC QPM [Humalog], 1 DOSE SQ TID If you have any questions please call us at [phone] or [phone] or [phone]
[~2017-08-13] VITALS: Ht 177.8 cm; Wt 81.8 kg
[~2017-08-13 09:27] MED LIST changes: +ATROPINE SULFATE 0.1 MG/ML 5ML SYR IV PRN; +CEFAZOLIN 2000MG IV PUSH 15 ML IV SCH; +EpHEDrine SULFATE INJ 50 MG/ML AMP IV PRN; +FENTANYL CITRATE INJ 50 MCG/1 ML 2 ML VIAL IV PRN; +HYDROmorphone INJ 0.5 MG/0.5 ML SYR IV PRN; +LACTATED RINGER'S 1000ML 1,000 ML IV SCH; +ONDANSETRON INJ 2 MG/ML 2 ML VIAL IV PRN; +PHENYLEPHRINE 100MCG/ML 5ML SYR IV PRN; +PROMETHAZINE HCL INJ 12.5 MG in SODIUM CHLORIDE 0.9% 50ML 50 ML IV PRN
[2017-08-13 10:18] VITALS: BP 140/72; PULSE 76; TEMP 36.7; O2SAT 98; Ht 177.8 cm; Wt 81.8 kg
--- NOTE | 2017-08-13 12:11 | History & Physical Bridge Note ---
H&P Re-Evaluation Bridge Note: Potential risks including infection, bleeding, nerve injury, reaction to any one of the medications used for the procedure, persistent pain at the injection site and persistent symptoms discussed with the patient. Diagnostic nature of the procedure also discussed with the patient. Possibility of hemo-or pneumothorax were also reviewed with the patient. Alternatives to the specific procedure was also discussed with the patient. Patient's questions were answered. Patient gives informed consent to proceed. I have examined the patient, reviewed the History & Physical and in the interval since the performance of the History & Physical I have noted the following changes of clinical significance: No changes noted
[2017-08-13] MEDS ORDERED: PROPOFOL IV EMULSION 10 MG/ML 20 ML VIAL ONE (12:25)
[2017-08-13] MEDS ORDERED: FENTANYL CITRATE INJ 50 MCG/1 ML 2 ML VIAL ONE (12:25)
[2017-08-13] MEDS ORDERED: LIDOCAINE HCL 2% 2 ML VIAL (20MG/ML) ONE (12:25)
[2017-08-13] MEDS ORDERED: MIDAZOLAM HCL 1 MG/ML 2ML VIAL ONE (12:25)
[2017-08-13] MEDS ORDERED: LIDOCAINE HCL 1% 20 ML VIAL ONE (12:42)
[2017-08-13] MEDS ORDERED: LIDOCAINE HCL 2% LOCAL 50ML VIAL ONE (12:42)
[2017-08-13] MEDS ORDERED: TRIAMCINOLONE ACET 40 MG/ML VIAL ONE (12:43)
[2017-08-13] MEDS ORDERED: NURSING VERBAL MED ORDER ONE (12:45)
[2017-08-13] MEDS ORDERED: DEXAMETHASONE **PF** INJ 10 MG/ML VIAL ONE (12:48)
[2017-08-13 13:25] VITALS: BP 123/63; PULSE 72; TEMP 36.6; O2SAT 97
[2017-08-13] MEDS ORDERED: BUPIVACAINE 0.5 % 5 MG/1 ML MPF 30ML VIAL INJ ONE (13:27)
--- NOTE | 2017-08-13 13:38 | [facility] Operative Report ---
Operative Report Operative Date August 13, 2017. Pre-Operative Diagnosis Right sided intercostal neuralgia Post-Operative Diagnosis same as preoperative diagnosis Procedure(s) Performed T10, T11, T12 Intercostal Nerve Block Surgeon Dr. Bautista Estimated Blood Loss 0ml Specimens none per surgeon Drains None Anesthesia Type MAC Complication(s) none Disposition yes Description of Procedure INTERCOSTAL NERVE BLOCK Diagnosis: Intercostal neuralgia. Side/Level injected: Right T10, T11 and T12 Surgeon: Dr. Bautista Prior to starting, the Patients diagnosis and the procedure were reviewed with the patient in detail. Possible risks and complications including infection, bleeding, damage to surrounding structures and increased pain were discussed. Alternative therapies were also reviewed. Patients questions were answered and they agreed to proceed. Informed consent was obtained. Allergies and medication list was reviewed. The patient was brought to the procedure room and placed in prone position. Immediately prior to starting the procedure, a ``time out was conducted with the staff and the patient where the patient was identified, proposed procedure was verified, consent was reviewed and the proper site for the planned procedure was identified. Monitors used included intermittent blood pressure with automated device, continuous pulse oximetry and level of consciousness. Patient was not given any intravenous sedation and constant verbal contact was maintained throughout the procedure. Biplanar fluoroscopy was used to assist in placement of the needle as well as to evaluate final needle position prior to the injection. On examination, no signs of skin breakdown or infection were noted at the injection site. The site was cleansed with DuraPrep followed by Betadine. Sterile drapes were applied. Next, appropriate rib on the appropriate side identified under fluoroscopy to true AP view. Skin was infiltrated with 1 cc 1% Xylocaine. A 20 gauge, 3.5 needle was introduced through the anesthetized area and placed at the inferior edge of the rib. C-arm was lateral view and the needle was then ``walked off the inferior margin of the rib into the neurovascular bundle. No blood, paresthesia or air was aspirated upon removed the stylette. 0.5 mL of Omnipaque M3 100 was injected. Spread on the neurovascular bundle was noted. No vascular uptake was seen. 2.5 daily Ml of 0.5% bupivacaine MPF containing 20 milligrams of Kenalog was injected. Needle was flushed with additional local anesthetic and withdrawn. Hemostasis was noted. Band-Aids were applied at the site. Chest x-ray was obtained to evaluate for any hemo or pneumothorax. Patient tolerated the procedure uneventfully without complications. Patient was brought to recovery area and observed. Vital signs were stable prior to discharge. 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 I attest to the content of the Intraoperative Record and any orders documented therein. Any exceptions are noted below.
--- NOTE | 2017-08-13 13:43 | Discharge Instructions ---
Discharge Instructions Date of Service August 13, 2017. Visit Reason for Visit: Neuropathic Pain Of Right Chest Wall, Intercanthal Discharge Discharge Diagnosis / Problem: Intercostal neuralgia Discharge Goals Goal(s): Prevent Disease Progression Activity Recommendations Activity Recommendations: No Limitations Exercise/Sports Limitations: rest today Shower/Bathe: no limitations Anesthesia . Post Anesthesia Instructions: If you have had General Anesthesia or IV Sedation: * Do not drive today. * Resume driving when surgeon permits. * Do not make important decisions or sign legal documents today. * Call surgeon for: * Temperature elevations greater than 101 degrees F. * Uncontrollable pain. * Excessive bleeding. * Persistent nausea and vomiting. * Medication intolerance (nausea, vomiting or rash). * For nausea and vomiting use only clear liquids such as: tea, soda, bouillon until nausea subsides, then gradually increase diet as tolerated. * If you have any concerns or questions, call your surgeon's office. If physician is unavailable and it is an emergency, call 911 or go to the nearest emergency room. . Instructions Instructions / Follow-Up . * Change dressings daily. Apply sterile dry gauze. * Call [facility] [phone] or go to the nearest emergency room if he experience high fevers, new back pain, new neurological symptoms such as numbness or weakness in the lower extremity or new bowel bladder incontinence. Also of call if he experience a headache that is positional. * Wear abdominal binder. * No showers for 3 days. * Resume normal activity. No repetitive bending, twisting or reaching overhead for 2 weeks. Do not lift more than 5 pounds for 2 weeks. . Follow-Up Follow-Up: 1 week in office for wound check Diet Recommendations Home Diet: no limitations Procedures Procedures Performed: T10, T11, T12 Intercostal Nerve Block Pending Studies Studies pending at discharge: no Medical Emergencies . Who to Call and When: Medical Emergencies: If at any time you feel your situation is an emergency, please call 911 immediately. . Non-Emergent Contact Non-Emergency issues call your: Primary Care Provider Call Non-Emergent contact if: your pain is worsening . . "Provider Documentation" section prepared by Mook Bautista. .
--- NOTE | 2017-08-13 14:08 | DIAGNOSTIC IMAGING REPORT ---
CHEST ONE VIEW PORTABLE CLINICAL HISTORY: Status post right T10, T11 and T12 intercostal nerve blocks. COMPARISON STUDY: Chest radiograph August 08, 2017. FINDINGS: Right hemithorax volume loss with post surgical changes are noted. A small right pleural effusion is similar to previous exam. There is no pneumothorax. There is no evidence for pulmonary edema. Cardiomediastinal silhouette is stable. IMPRESSION: 1. No pneumothorax. 2. No change in a small right pleural effusion. Electronically signed by: Chad Kay M.D. 08/13/2017 2:06 PM Dictated Date/Time: 08/13/2017 2:03 PM
[2017-08-13 14:10] VITALS: BP 133/73; PULSE 70; O2SAT 96
--- NOTE | 2017-08-13 15:01 | Anesthesiology Progress Note ---
Anesthesia Post Op Note Date & Time August 13, 2017 at 15:01 Vital Signs Pain Intensity: 1 Vital Signs Past 12 Hours Date Time Temp Pulse Resp B/P (MAP) Pulse Ox O2 Delivery O2 Flow Rate FiO2 08/13/17 14:10 70 18 133/73 96 Room Air 08/13/17 13:25 36.6 72 20 123/63 97 Room Air 08/13/17 10:18 36.7 76 20 140/72 (94) 98 Room Air Notes Mental Status: alert / awake / arousable, participated in evaluation Pt Amnestic to Procedure: Yes Nausea / Vomiting: adequately controlled Pain: adequately controlled Airway Patency, RR, SpO2: stable & adequate BP & HR: stable & adequate Hydration State: stable & adequate Anesthetic Complications: no major complications apparent
== END 2017-08-13 14:35 | disposition home or self-care (01) ==
LOC: C.ACU 09:27
PROVIDERS: ATTEND Anesthesiology
DX: G89.12 Acute post-thoracotomy pain (principal); G58.0 Intercostal neuropathy; E11.29 Type 2 diabetes mellitus with other diabetic kidney complication; R80.9 Proteinuria, unspecified; E78.00 Pure hypercholesterolemia, unspecified; J44.9 Chronic obstructive pulmonary disease, unspecified; Z90.2 Acquired absence of lung [part of]; F17.200 Nicotine dependence, unspecified, uncomplicated; M19.90 Unspecified osteoarthritis, unspecified site; K21.9 Gastro-esophageal reflux disease without esophagitis; L40.9 Psoriasis, unspecified; E11.43 Type 2 diabetes mellitus with diabetic autonomic (poly)neuropathy; Z80.3 Family history of malignant neoplasm of breast; Z82.49 Family history of ischemic heart disease and other diseases of the circulatory system; Z83.3 Family history of diabetes mellitus; Z79.4 Long term (current) use of insulin; Z79.82 Long term (current) use of aspirin; Z92.21 Personal history of antineoplastic chemotherapy; Z85.118 Personal history of other malignant neoplasm of bronchus and lung; Z87.01 Personal history of pneumonia (recurrent); Z88.8 Allergy status to other drugs, medicaments and biological substances

== ENCOUNTER → 2017-11-14 | Outpatient (CLI) | payer OTHER ==
[~2017-11-14] MED LIST changes: -ATROPINE SULFATE 0.1 MG/ML 5ML SYR IV PRN; -CEFAZOLIN 2000MG IV PUSH 15 ML IV SCH; -EpHEDrine SULFATE INJ 50 MG/ML AMP IV PRN; -FENTANYL CITRATE INJ 50 MCG/1 ML 2 ML VIAL IV PRN; -HYDROmorphone INJ 0.5 MG/0.5 ML SYR IV PRN; -LACTATED RINGER'S 1000ML 1,000 ML IV SCH; +NORT25CA PO; -ONDANSETRON INJ 2 MG/ML 2 ML VIAL IV PRN; -PHENYLEPHRINE 100MCG/ML 5ML SYR IV PRN; -PROMETHAZINE HCL INJ 12.5 MG in SODIUM CHLORIDE 0.9% 50ML 50 ML IV PRN
--- NOTE | 2017-11-14 09:11 | DIAGNOSTIC IMAGING REPORT ---
(CHEST) THORAX WITHOUT CT DOSE: 358.53 mGy.cm CLINICAL HISTORY: 61 years-old Male with LUNG CA. Follow-up study in a patient with history of lung cancer. Subsequent treatment strategy. No acute chest complaints reported. TECHNIQUE: Multiaxial CT images of the chest were performed without contrast. A dose lowering technique was utilized adhering to the principles of ALARA. COMPARISON: CTA of the chest 10/03/2016, PET CT 02/25/2017. FINDINGS: Homogeneous thyroid. No pathologically enlarged lymph nodes identified, however evaluation is limited without use of IV contrast. Heart is mildly enlarged with coronary arterial calcifications noted. The thoracic aorta is normal in both course and caliber with mild calcification noted. The pulmonary arterial tree is unremarkable. Small right pleural effusion, decreased in size from comparison study 02/25/2017. Mild pleural thickening at the right lung base. Moderate emphysema. Postoperative changes about the right lung with prior right lower lobectomy. Groundglass opacity and subsegmental linear consolidative opacities are noted about the right lung base and perihilar distribution suggesting posttreatment related changes with scarring. No evidence of recurrent or metastatic disease. Subsegmental subpleural reticular opacities about the left lung suggest admixture of mild fibrosis with atelectasis, unchanged. There are no suspicious pulmonary nodules or masses. Compensatory hyperinflation about the left lung. Minimal secretions are seen within the tracheobronchial tree. No acute process of the imaged upper abdomen. Soft tissues are within normal limits. The bones appear to be intact. No suspicious lytic or blastic bony lesions identified. Multilevel spondylitic spurring of the spine. IMPRESSION: 1. Postoperative changes about the right lung without evidence of recurrent or metastatic disease identified. 2. No suspicious pulmonary nodules, masses or adenopathy. 3. Mild right-sided pleural thickening with small right pleural effusion, decreased in size from comparison study 02/25/2017. 4. Cardiomegaly. 5. Emphysema. Electronically signed by: Amado Arroyo M.D. 11/14/2017 9:10 AM Dictated Date/Time: 11/14/2017 8:53 AM
== END | disposition home or self-care (01) ==
LOC: C.CTS 08:41
PROVIDERS: ATTEND Surgery
DX: J43.9 Emphysema, unspecified (principal); Z98.890 Other specified postprocedural states

== ENCOUNTER 2019-08-29 11:51 | Inpatient (IN) ==
[2019-08-29 12:16] LABS: iSTAT Blood Urea Nitrogen 62 mg/dl (7-18); iSTAT Carbon Dioxide 10 mmol/L (24-31); iSTAT Chloride 92 mmol/L (101-112); iSTAT Creatinine 3.3 mg/dl (0.6-1.3); iSTAT Glucose > 700 mg/dl (70-99); iSTAT Hematocrit 49 % (42-52); iSTAT Hemoglobin 16.7 g/dl (14.0-18.0); iSTAT Ionized Calcium 1.28 mmol/l (1.12-1.32); iSTAT Potassium 5.2 mmol/L (3.3-5.0); iSTAT Sodium 122 mmol/L (135-144)
[2019-08-29] MEDS ORDERED: ED DKA INSULIN DRIP ONE (12:16)
[2019-08-29] MEDS ORDERED: GLUCAGON FOR INJ 1 MG VIAL SQ PRN (12:16)
[2019-08-29] MEDS ORDERED: DKA GOAL RANGE 150-250 mg/dl ONE (12:16)
[2019-08-29] MEDS ORDERED: CARBOHYDRATES FOR HYPOGLYCEMIA PO PRN (12:16)
[2019-08-29] MEDS ORDERED: SODIUM CHLORIDE 0.9% 1000ML 1,000 ML IV ONE (12:16)
[2019-08-29] MEDS ORDERED: GLUCOSE 10 TABS/TUBE PO PRN (12:16)
[2019-08-29] MEDS ORDERED: GLUCOSE 40% GEL 15 GM TUBE PO PRN (12:16)
[2019-08-29] MEDS ORDERED: DEXTROSE 50% 50 ML SYRINGE IV PRN (12:16)
--- NOTE | 2019-08-29 12:24 | Emergency Department Note ---
History of Present Illness General Chief complaint: Hyperglycemia Stated complaint: hyperglycemia Time Seen by Provider: 08/29/19 12:06 Source: patient and EMS Mode of arrival: EMS Limitations: clinical acuity History of Present Illness Provider complaint: weakness, vomiting, diarrhea Onset (ago): day(s) 4 Location: abdomen Radiation: abdomen Severity: moderate Relieved By: + none Associated symptoms: + malaise, + nausea/vomiting and + weakness; no chest pain and no shortness of breath Treatments prior to arrival: none This is a 63-year-old man brought in by EMS from home due to weakness, nausea an d vomiting. Per EMS symptoms started on Saturday as patient was drinking in preparation for colonoscopy. Patient has not been taking his routine medications due to vomiting which began after starting the prep. Today told him patient was very weak and washed out and could not get out of bed. He was trying to sip some water. Their check of the patient's glucose read high. Patient here complaining of needing to pee however when assisted by nursing staff he was unable to so they placed a Zambrano catheter. Patient states he has been having bladder pain all morning. Patient states he has not been checking her sugars or taking his insulin. Patient does appear to be in distress and has had difficulty answering any additional questions. Pt seen during a time of high acuity and national emergency pandemic while wearing PPE. Home Medications Home Medications Medication Instructions Recorded Confirmed Type aspirin 325 mg tablet 0 mg PO QAM 12/10/17 08/29/19 History lisinopril 10 mg PO QAM 06/04/19 08/29/19 History insulin lispro 100 unit/mL 35 units SQ TID #10 ml 07/03/19 08/29/19 Rx subcutaneous solution gabapentin 300 mg PO TID 08/29/19 08/29/19 History insulin glargine [Lantus U-100 70 units SQ HS 08/29/19 08/29/19 History Insulin] Allergies Allergy/AdvReac Type Severity Reaction Status Date / Time varenicline AdvReac Unknown WEIRD Verified 08/29/19 15:57 DREAMS Past Med/Surg History Medical History Chronic obstructive pulmonary disease Diabetes mellitus, type 2 IDDM GERD (gastroesophageal reflux disease) per records Hyperlipidemia Hypertension 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- MAC sedation at [facility] without issue Lung cancer hx (chemo 10/2016, radiation 10/2016) Migraine hx Osteoarthritis Peripheral neuropathy Pneumothorax hx Surgical History History of anesthesia reaction Slow to wake History of arthroscopy LEFT SHOULDER-03/2019 History of bronchoscopy History of foot surgery plantar fasciitis surgery -LEFT FOOT History of lobectomy of lung RML, RLL 10/2017- residual right sided neuralgia status post surgery History of lobectomy of lung RML/RLL ?10/2016- RESIDUAL RIGHT SIDED NEURALGIA S/P SURGERY PER RECORDS History of repair of left rotator cuff (~03/2019) History of tonsillectomy History of tooth extraction 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 Brother Coronary heart disease Social History Preferred Language: Turkmen Communication Ability: Impaired Visual Impairment: No Limitations Polisher Balance Screwhead Required: No Beliefs That Will Affect Care: None marital status: Current Living Situation: Spouse Feels Safe at Home: Yes Smoking Status: Unknown if ever smoked Hx Alcohol Use: No Hx Substance Use: No Review of Systems See HPI for pertinent positives & negatives. and A total of 10 systems reviewed and were otherwise negative Physical Exam Vital Signs Vital Signs - 24 hr 08/29/19 13:56 08/29/19 14:00 08/29/19 14:27 Pulse Rate 126 H 120 H Pulse Rate [Forehead] 114 H Pulse Rate from SpO2 Sensor 126 H 121 H Respiratory Rate 36 H 27 H 28 H Blood Pressure 111/62 115/67 Blood Pressure [Left Arm] 107/61 Blood Pressure Mean 88 77 Blood Pressure Mean [Left Arm] 76 Pulse Oximetry 97 96 96 Oxygen Delivery Method Nasal Cannula Oxygen Flow Rate 3 08/29/19 14:30 08/29/19 14:45 Pulse Rate 112 H 109 H Pulse Rate [Forehead] Pulse Rate from SpO2 Sensor 112 H 109 H Respiratory Rate 29 H 35 H Blood Pressure 106/56 L 91/49 L Blood Pressure [Left Arm] Blood Pressure Mean 76 64 Blood Pressure Mean [Left Arm] Pulse Oximetry 95 95 Oxygen Delivery Method Oxygen Flow Rate GENERAL: alert, ill appearing, well nourished, no distress, non-toxic EYE EXAM: normal conjunctiva, PERRL and EOM's grossly intact OROPHARYNX: no exudate, no erythema, lips, buccal mucosa, and tongue normal and mucous membranes are moist NECK: supple, no nuchal rigidity, no adenopathy, non-tender LUNGS: Clear to auscultation. Normal chest wall mechanics, no w/r/r, tachypneic HEART: no murmurs, S1 normal and S2 normal, sinus tachycardia on telemetry ABDOMEN: abdomen soft, non-tender, normo-active bowel sounds, no masses, no rebound or guarding. : Circumcised, bilaterally descended testicles, Zambrano catheter now present BACK: Back is symmetrical on inspection and there is no deformity, no midline tenderness, no CVA tenderness. SKIN: no rashes and no bruising UPPER EXTREMITIES: upper extremities are grossly normal. FROM, nml pulses b/l. LOWER EXTREMITIES: No pitting edema. FROM, nml pulses b/l. NEURO EXAM: Patient will open eyes to voice, can answer a few simple questions, cranial nerves II-XII grossly intact, normal speech, no gross weakness of arms, no gross weakness of legs. Gross sensation intact. Course Course 1220: Per , Saturday pt started drinking for colonoscopy , began having diarrhea. had vomiting all day, no blood seen. Colonoscopy cancelled. Pt weak yesterday. No further vomiting/diarrhea. Tried to drink a lot of water. She states he was sweating but never felt warm. Hx of lung cancer. No hx of bladder or prostate problems. Pt was trying to take zofran at home for vomiting. She states has been admitted previously for low blood sugars. 1300: Pt still arousable, answering questions. States he feels "awful". Clear yellow urine draining in the Zambrano catheter. Patient with 500 mL's out at this time. 1347: Case discussed with Dr. Arriaga. We discussed additional antibiotic coverage for pneumonia beyond rocephin. Prefers additional Zosyn in case of aspiration. She will contact ICU. We have paged general surgery regarding the SBO. 1415: Dr. Arriaga here at bedside. Still awaiting call back from gen surgery. 1429: VS improving. BP stabilizing, HR improved, RR improved. 1500: Discussed with Dr. Arriaga again. She did discuss the case with Dr. Monson who had come to pt's bedside. 1520: Discussed with , . She states pt is DNR/DNI. Administered Medications Heparin Sodium (Porcine) (Heparin Sodium (Porcine)) 5,000 units SQ Q12 LEIDY Stop: 09/28/19 20:59 Last Admin: 08/30/19 08:15 Dose: 5,000 units Documented by: [id number] Cosigned by: [id number] Admin: 08/29/19 22:02 Dose: 5,000 units Documented by: [id number] Cosigned by: [id number] Insulin Human Regular 250 (units/ Sodium Chloride) 250 mls @ 10.3 mls/hr IV .Q24H LEIDY; Protocol Stop: 09/28/19 12:29 Last Admin: 08/30/19 10:50 Dose: Not Given Documented by: [id number] Cosigned by: [id number] Titration: 08/30/19 10:25 Dose: 0 units/hr, 0 mls/hr Documented by: [id number] Cosigned by: [id number] Titration: 08/30/19 08:49 Dose: 10.3 units/hr, 10.3 mls/hr Documented by: [id number] Cosigned by: [id number] Admin: 08/30/19 08:12 Dose: 8.6 units/hr, 8.6 mls/hr Documented by: [id number] Cosigned by: [id number] Titration: 08/30/19 08:12 Dose: 0 units/hr, 0 mls/hr Documented by: [id number] Cosigned by: [id number] Titration: 08/30/19 07:30 Dose: 0 units/hr, 0 mls/hr Documented by: [id number] Cosigned by: [id number] Titration: 08/30/19 04:26 Dose: 10.2 units/hr, 10.2 mls/hr Documented by: [id number] Cosigned by: [id number] Titration: 08/30/19 03:23 Dose: 12.8 units/hr, 12.8 mls/hr Documented by: [id number] Cosigned by: [id number] Titration: 08/30/19 02:48 Dose: 0 units/hr, 0 mls/hr Documented by: [id number] Cosigned by: [id number] Titration: 08/30/19 01:55 Dose: 21.3 units/hr, 21.3 mls/hr Documented by: [id number] Cosigned by: [id number] Titration: 08/30/19 00:49 Dose: 26.6 units/hr, 26.6 mls/hr Documented by: [id number] Cosigned by: [id number] Titration: 08/29/19 23:48 Dose: 22.2 units/hr, 22.2 mls/hr Documented by: [id number] Cosigned by: [id number] Titration: 08/29/19 21:59 Dose: 18.5 units/hr, 18.5 mls/hr Documented by: [id number] Cosigned by: [id number] Titration: 08/29/19 20:14 Dose: 15.4 units/hr, 15.4 mls/hr Documented by: [id number] Cosigned by: [id number] Titration: 08/29/19 18:59 Dose: 12.8 units/hr, 12.8 mls/hr Documented by: [id number] Cosigned by: [id number] Titration: 08/29/19 18:58 Dose: 12.8 units/hr, 12.8 mls/hr Documented by: [id number] Cosigned by: [id number] Titration: 08/29/19 16:50 Dose: 10.7 units/hr, 10.7 mls/hr Documented by: [id number] Cosigned by: [id number] Admin: 08/29/19 13:15 Dose: 8.9 units/hr, 8.9 mls/hr Documented by: [id number] Cosigned by: [id number] Pantoprazole Sodium 40 mg/ (Syringe) 10 mls @ 5 mls/min IV DAILY@1100 LEIDY Stop: 09/01/19 11:01 Last Admin: 08/29/19 17:50 Dose: 5 mls/min Documented by: [id number] Piperacillin Sod/Tazobactam (Sod 4.5 gm/ Dextrose) 120 mls @ 30 mls/hr IV Q8H LEIDY; Protocol Stop: 09/05/19 19:59 Last Infusion: 08/30/19 08:47 Dose: 0 mls/hr Documented by: [id number] Admin: 08/30/19 04:36 Dose: 30 mls/hr Documented by: [id number] Infusion: 08/30/19 00:50 Dose: 0 mls/hr Documented by: [id number] Admin: 08/29/19 20:49 Dose: 30 mls/hr Documented by: [id number] Lorazepam (Ativan) 1 mg in 2 mls @ 0.5 mls/min IV ONCE PRN PRN Reason: Agitation Stop: 09/29/19 10:06 Last Admin: 08/30/19 10:15 Dose: 0.5 mls/min Documented by: [id number] Discontinued Medications Sodium Chloride (Nss 1000ml) 1,000 mls @ 999 mls/hr IV .Q1H1M ONE Stop: 08/29/19 13:16 Last Infusion: 08/29/19 14:26 Dose: 0 mls/hr Documented by: [id number] Admin: 08/29/19 12:19 Dose: 999 mls/hr Documented by: [id number] Insulin Human Regular 9 units/ (Syringe) 9 mls @ 30 mls/min IV NOW ONE Stop: 08/29/19 12:46 Last Admin: 08/29/19 13:15 Dose: 30 mls/min Documented by: [id number] Cosigned by: [id number] Ceftriaxone Sodium (Rocephin) 2,000 mg in 70 mls @ 140 mls/hr IV NOW STA Stop: 08/29/19 14:01 Last Infusion: 08/29/19 14:31 Dose: 0 mls/hr Documented by: [id number] Admin: 08/29/19 14:03 Dose: 140 mls/hr Documented by: [id number] Lactated Ringer's (Lr) 1,000 mls @ 500 mls/hr IV .Q2H LEIDY Stop: 09/28/19 13:44 Last Admin: 08/29/19 16:57 Dose: Not Given Documented by: [id number] Infusion: 08/29/19 16:35 Dose: 0 mls/hr Documented by: [id number] Admin: 08/29/19 13:54 Dose: 500 mls/hr Documented by: [id number] Piperacillin Sod/Tazobactam Sod (Zosyn) 4.5 gm in 120 mls @ 240 mls/hr IV NOW ONE Stop: 08/29/19 14:41 Last Infusion: 08/29/19 15:05 Dose: 0 mls/hr Documented by: [id number] Admin: 08/29/19 14:32 Dose: 240 mls/hr Documented by: [id number] Parenteral Electrolytes (Normosol-R) 1,000 mls @ 150 mls/hr IV .Q6H40M [facility]IDY Stop: 09/28/19 16:33 Last Admin: 08/29/19 21:25 Dose: Not Given Documented by: [id number] Parenteral Electrolytes (Normosol-R) 2,000 mls @ 999 mls/hr IV .Q2H1M ONE Stop: 08/29/19 18:43 Last Infusion: 08/29/19 20:14 Dose: 0 mls/hr Documented by: [id number] Admin: 08/29/19 17:48 Dose: 999 mls/hr Documented by: [id number] Potassium Chloride/Sodium Chloride (1/2 Nss + 20meq Kcl 1000ml) 20 meq in 1,000 mls @ 200 mls/hr IV .Q5H LEIDY Stop: 09/28/19 20:59 Last Infusion: 08/30/19 00:18 Dose: 0 mls/hr Documented by: [id number] Admin: 08/29/19 20:49 Dose: 200 mls/hr Documented by: [id number] Potassium Chloride 40 meq/ (Sodium Chloride) 1,020 mls @ 150 mls/hr IV .Q6H48M LEIDY Stop: 09/29/19 00:29 Last Infusion: 08/30/19 01:30 Dose: 0 mls/hr Documented by: [id number] Admin: 08/30/19 00:59 Dose: 150 mls/hr Documented by: [id number] Potassium Chloride (K Mele / Wtr) 10 meq in 100 mls @ 100 mls/hr IV ONE ONE Stop: 08/30/19 02:46 Last Infusion: 08/30/19 03:20 Dose: 0 mls/hr Documented by: [id number] Admin: 08/30/19 02:19 Dose: 100 mls/hr Documented by: [id number] Furosemide 40 mg/ Syringe 4 mls @ 4 mls/min IV ONE ONE Stop: 08/30/19 02:16 Last Admin: 08/30/19 02:18 Dose: 4 mls/min Documented by: [id number] Potassium Chloride (K Mele / Wtr) 10 meq in 100 mls @ 100 mls/hr IV Q1H LEIDY Stop: 08/30/19 05:04 Last Infusion: 08/30/19 05:56 Dose: 0 mls/hr Documented by: [id number] Admin: 08/30/19 04:39 Dose: 100 mls/hr Documented by: [id number] Infusion: 08/30/19 04:25 Dose: 0 mls/hr Documented by: [id number] Admin: 08/30/19 03:21 Dose: 100 mls/hr Documented by: [id number] Potassium Chloride 40 meq/ (Dextrose) 1,020 mls @ 75 mls/hr IV .[id number] [facility] Stop: 09/29/19 03:29 Last Admin: 08/30/19 04:38 Dose: Not Given Documented by: [id number] Furosemide 80 mg/ Syringe 8 mls @ 4 mls/min IV ONE ONE Stop: 08/30/19 05:16 Last Admin: 08/30/19 05:25 Dose: 4 mls/min Documented by: [id number] Insulin Aspart (Novolog Flexpen) 0 units SC ACHS [facility] Stop: 09/28/19 16:29 Last Admin: 08/30/19 08:15 Dose: Not Given Documented by: [id number] Cosigned by: [id number] Admin: 08/29/19 21:26 Dose: Not Given Documented by: [id number] Cosigned by: [id number] Admin: 08/29/19 16:59 Dose: Not Given Documented by: [id number] Cosigned by: [id number] Lorazepam (Ativan) Confirm Administered Dose 2 mg .ROUTE .STK-MED ONE Stop: 08/30/19 10:05 Last Admin: 08/30/19 10:25 Dose: Not Given Documented by: [id number] Miscellaneous (Insulin Protocol Dka Goal Range) 1 ea N/A ONE ONE Stop: 08/29/19 12:17 Last Admin: 08/29/19 13:38 Dose: Not Given Documented by: [id number] Miscellaneous (Pending 1/2nss+20meq Kcl Ivf) 1 ea N/A Q2H LEIDY Stop: 09/28/19 16:33 Last Admin: 08/29/19 21:24 Dose: Not Given Documented by: [id number] Admin: 08/29/19 21:24 Dose: Not Given Documented by: [id number] Admin: 08/29/19 21:23 Dose: Not Given Documented by: [id number] Sodium Bicarbonate (Sodium Bicarbonate 8.4%) 50 meq IV ONCE ONE Stop: 08/30/19 08:01 Last Admin: 08/30/19 08:01 Dose: 50 meq Documented by: [id number] Critical Care Time Critical Care Time: Yes Total Critical Care Time: 78 Critical care of 78 min performed to assess and manage high likelihood of life- threatening dka and arf, involving labs/imaging performed with assessment to e valuate dka and arf diagnosis with frequent reassessment. This time includes bedside time, treatment discussions with patient/family/consultants, documentation time and excludes procedure time. Medical Decision Making Differential Diagnosis Differential Diagnosis includes but is not limited to dehydration, stroke, anemia, hypoglycemia, hyponatremia, hypernatremia, urinary tract infection, pneumonia, bronchitis, sepsis, gastroenteritis, additional abdominal pathology, metabolic abnormalities and infections. Medical Records Attestation: I reviewed the patient's medical records. Home Medications Current Medication List: was personally reviewed by me Laboratory Data Attestation: I reviewed the patient's lab results. Result diagrams: 08/30/19 03:21 08/30/19 03:21 Lab Results 08/29/19 08/29/19 08/29/19 Range/Units 11:59 11:59 12:03 WBC 27.67 H (4.8-10.8) K/uL RBC 5.81 (4.7-6.1) M/uL Hgb 16.4 (14.0-18.0) g/dL POC Hgb 16.7 (14.0-18.0) g/dl Hct 51.9 (42-52) % POC Hct 49 (42-52) % MCV 89.3 (80-100) fL MCH 28.2 (25-34) pg MCHC 31.6 L (32-36) g/dL Plt Count 418 H (130-400) K/uL Immature Gran % (Auto) 0.8 % Neut % (Auto) 84.5 % Lymph % (Auto) 2.1 % Bradley % (Auto) 12.5 % Eos % (Auto) 0.1 % Baso % (Auto) 0.0 % Immature Gran # (Auto) 0.21 H (0.00-0.02) K/uL Neut # (Auto) 23.37 H (1.4-6.5) K/uL Lymph # (Auto) 0.59 L (1.2-3.4) K/uL Bradley # (Auto) 3.46 H (0.11-0.59) K/uL Eos # (Auto) 0.04 (0-0.5) K/uL Baso # (Auto) 0.00 (0-0.2) K/uL ABG pH (7.35-7.45) ABG pCO2 (35-46) mmHg ABG pO2 (80-95) mmHg ABG HCO3 (19-24) mmol/L ABG O2 Saturation (90-95) % ABG Base Excess (-9-1.8) mEq/L Jose D Test (Pos) Barometric Pressure mm/Hg Oxygen Given POC Sodium 122 L (135-144) mmol/L Sodium 124 L (136-145) mmol/L POC Potassium 5.2 H (3.3-5.0) mmol/L Potassium 5.2 H (3.5-5.1) mmol/L POC Chloride 92 L (101-112) mmol/L Chloride 86 L (98-107) mmol/L Carbon Dioxide 10 L (21-32) mmol/L POC Total CO2 10 L (24-31) mmol/L Anion Gap 28.0 H (3-11) POC Anion Gap 27.0 H (16-25) mmol/L POC BUN 62 H (7-18) mg/dl BUN 68 H (7-18) mg/dl Creatinine 4.12 H (0.6-1.4) mg/dl POC Creatinine 3.3 H (0.6-1.3) mg/dl Est Cr Clr Drug Dosing 20.1 ml/min Est GFR ( Amer) 16.5 Est GFR (Non-Af Amer) 14.2 BUN/Creatinine Ratio 16.6 (10-20) Glucose 1585 H* (70-99) mg/dl POC Glucose (other) > 700 H* (70-99) mg/dl Lactate (0.4-2.0) mmol/L Calcium 9.3 (8.5-10.1) mg/dl POC Ioniz Calcium Daina 1.28 (1.12-1.32) mmol/l Phosphorus 8.2 H (2.5-4.9) mg/dl Magnesium 3.6 H (1.8-2.4) mg/dl Total Bilirubin 0.6 (0.2-1) mg/dl AST 35 (15-37) U/L ALT 36 (12-78) U/L Alkaline Phosphatase 147 H (45-117) U/L Total Protein 7.2 (6.4-8.2) gm/dl Albumin 3.6 (3.4-5.0) gm/dl Globulin 3.6 (2.5-4.0) gm/dl Albumin/Globulin Ratio 1.0 (0.9-2) Beta-Hydroxybutyric Acd 107.96 H (0.2-2.81) mg/dl Urine Color Urine Appearance (Clear) Urine pH (4.5-7.5) Ur Specific Cornelius (1.000-1.030) Urine Protein (Negative) Urine Glucose (UA) (Negative) Urine Ketones (Negative) Urine Blood (Negative) Urine Nitrite (Negative) Urine Bilirubin (Negative) Urine Urobilinogen (Negative) Ur Leukocyte Esterase (Negative) Urine WBC (Auto) (0-5) /hpf Urine RBC (Auto) (0-4) /hpf U Hyaline Cast (Auto) (0-5) /lpf U Epithel Cells (Auto) (0-5) /lpf Urine Bacteria (Auto) (Negative) Nasal Screen MRSA (PCR) (Negative) 08/29/19 08/29/19 08/29/19 Range/Units 12:20 13:36 13:42 WBC (4.8-10.8) K/uL RBC (4.7-6.1) M/uL Hgb (14.0-18.0) g/dL POC Hgb (14.0-18.0) g/dl Hct (42-52) % POC Hct (42-52) % MCV (80-100) fL MCH (25-34) pg MCHC (32-36) g/dL Plt Count (130-400) K/uL Immature Gran % (Auto) % Neut % (Auto) % Lymph % (Auto) % Bradley % (Auto) % Eos % (Auto) % Baso % (Auto) % Immature Gran # (Auto) (0.00-0.02) K/uL Neut # (Auto) (1.4-6.5) K/uL Lymph # (Auto) (1.2-3.4) K/uL Bradley # (Auto) (0.11-0.59) K/uL Eos # (Auto) (0-0.5) K/uL Baso # (Auto) (0-0.2) K/uL ABG pH 7.04 L* (7.35-7.45) ABG pCO2 27 L (35-46) mmHg ABG pO2 92 (80-95) mmHg ABG HCO3 7 L (19-24) mmol/L ABG O2 Saturation 95.1 H (90-95) % ABG Base Excess -22.4 L (-9-1.8) mEq/L Jose D Test Pos (Pos) Barometric Pressure 728.4 mm/Hg Oxygen Given 2 L POC Sodium (135-144) mmol/L Sodium (136-145) mmol/L POC Potassium (3.3-5.0) mmol/L Potassium (3.5-5.1) mmol/L POC Chloride (101-112) mmol/L Chloride (98-107) mmol/L Carbon Dioxide (21-32) mmol/L POC Total CO2 (24-31) mmol/L Anion Gap (3-11) POC Anion Gap (16-25) mmol/L POC BUN (7-18) mg/dl BUN (7-18) mg/dl Creatinine (0.6-1.4) mg/dl POC Creatinine (0.6-1.3) mg/dl Est Cr Clr Drug Dosing ml/min Est GFR ( Amer) Est GFR (Non-Af Amer) BUN/Creatinine Ratio (10-20) Glucose (70-99) mg/dl POC Glucose (other) (70-99) mg/dl Lactate (0.4-2.0) mmol/L Calcium (8.5-10.1) mg/dl POC Ioniz Calcium Daina (1.12-1.32) mmol/l Phosphorus (2.5-4.9) mg/dl Magnesium (1.8-2.4) mg/dl Total Bilirubin (0.2-1) mg/dl AST (15-37) U/L ALT (12-78) U/L Alkaline Phosphatase (45-117) U/L Total Protein (6.4-8.2) gm/dl Albumin (3.4-5.0) gm/dl Globulin (2.5-4.0) gm/dl Albumin/Globulin Ratio (0.9-2) Beta-Hydroxybutyric Acd (0.2-2.81) mg/dl Urine Color Yellow Urine Appearance Cloudy A (Clear) Urine pH 5.0 (4.5-7.5) Ur Specific Cornelius 1.029 (1.000-1.030) Urine Protein Negative (Negative) Urine Glucose (UA) 3+ H (Negative) Urine Ketones 1+ H (Negative) Urine Blood 3+ H (Negative) Urine Nitrite Negative (Negative) Urine Bilirubin Negative (Negative) Urine Urobilinogen Negative (Negative) Ur Leukocyte Esterase Negative (Negative) Urine WBC (Auto) 1-5 (0-5) /hpf Urine RBC (Auto) 0-4 (0-4) /hpf U Hyaline Cast (Auto) 1-5 (0-5) /lpf U Epithel Cells (Auto) 10-20 H (0-5) /lpf Urine Bacteria (Auto) Negative (Negative) Nasal Screen MRSA (PCR) Negative (Negative) 08/29/19 08/29/19 Range/Units 14:20 14:20 WBC (4.8-10.8) K/uL RBC (4.7-6.1) M/uL Hgb (14.0-18.0) g/dL POC Hgb (14.0-18.0) g/dl Hct (42-52) % POC Hct (42-52) % MCV (80-100) fL MCH (25-34) pg MCHC (32-36) g/dL Plt Count (130-400) K/uL Immature Gran % (Auto) % Neut % (Auto) % Lymph % (Auto) % Bradley % (Auto) % Eos % (Auto) % Baso % (Auto) % Immature Gran # (Auto) (0.00-0.02) K/uL Neut # (Auto) (1.4-6.5) K/uL Lymph # (Auto) (1.2-3.4) K/uL Bradley # (Auto) (0.11-0.59) K/uL Eos # (Auto) (0-0.5) K/uL Baso # (Auto) (0-0.2) K/uL ABG pH (7.35-7.45) ABG pCO2 (35-46) mmHg ABG pO2 (80-95) mmHg ABG HCO3 (19-24) mmol/L ABG O2 Saturation (90-95) % ABG Base Excess (-9-1.8) mEq/L Jose D Test (Pos) Barometric Pressure mm/Hg Oxygen Given POC Sodium (135-144) mmol/L Sodium 128 L (136-145) mmol/L POC Potassium (3.3-5.0) mmol/L Potassium 4.4 D (3.5-5.1) mmol/L POC Chloride (101-112) mmol/L Chloride 92 L (98-107) mmol/L Carbon Dioxide 10 L (21-32) mmol/L POC Total CO2 (24-31) mmol/L Anion Gap 26.0 H (3-11) POC Anion Gap (16-25) mmol/L POC BUN (7-18) mg/dl BUN 67 H (7-18) mg/dl Creatinine 4.15 H (0.6-1.4) mg/dl POC Creatinine (0.6-1.3) mg/dl Est Cr Clr Drug Dosing 20.0 ml/min Est GFR ( Amer) 16.3 Est GFR (Non-Af Amer) 14.1 BUN/Creatinine Ratio 16.3 (10-20) Glucose 1418 H* (70-99) mg/dl POC Glucose (other) (70-99) mg/dl Lactate 2.8 H* (0.4-2.0) mmol/L Calcium 8.5 (8.5-10.1) mg/dl POC Ioniz Calcium Daina (1.12-1.32) mmol/l Phosphorus (2.5-4.9) mg/dl Magnesium (1.8-2.4) mg/dl Total Bilirubin (0.2-1) mg/dl AST (15-37) U/L ALT (12-78) U/L Alkaline Phosphatase (45-117) U/L Total Protein (6.4-8.2) gm/dl Albumin (3.4-5.0) gm/dl Globulin (2.5-4.0) gm/dl Albumin/Globulin Ratio (0.9-2) Beta-Hydroxybutyric Acd 102.88 H (0.2-2.81) mg/dl Urine Color Urine Appearance (Clear) Urine pH (4.5-7.5) Ur Specific Cornelius (1.000-1.030) Urine Protein (Negative) Urine Glucose (UA) (Negative) Urine Ketones (Negative) Urine Blood (Negative) Urine Nitrite (Negative) Urine Bilirubin (Negative) Urine Urobilinogen (Negative) Ur Leukocyte Esterase (Negative) Urine WBC (Auto) (0-5) /hpf Urine RBC (Auto) (0-4) /hpf U Hyaline Cast (Auto) (0-5) /lpf U Epithel Cells (Auto) (0-5) /lpf Urine Bacteria (Auto) (Negative) Nasal Screen MRSA (PCR) (Negative) Imaging Data Radiologist's Impression: CT SCAN OF THE BRAIN WITHOUT IV CONTRAST CLINICAL HISTORY: Change in mental status. COMPARISON STUDY: CT of the brain dated 05/29/2014. TECHNIQUE: Unenhanced axial CT scan of the brain is performed from the vertex to the skull base. A dose lowering technique was utilized adhering to the principles of ALARA. Examination is modestly degraded by motion artifact. CT DOSE: 4081.83 mGy.cm FINDINGS: Brain parenchyma: The brain parenchyma is normal in appearance. There is no hemorrhage, mass effect, or evidence of acute territorial ischemia by CT criteria. Call-white matter differentiation is preserved. There is minimal microangiopathic change. Mineralization is noted in the basal ganglia. No extra- axial fluid collection is seen. Ventricles, sulci, cisterns: Normal in configuration. Intracranial vasculature: There is atherosclerotic calcification of the cavernous carotid and vertebral arteries. Calvarium: Unremarkable. Sinuses and mastoids: The visualized paranasal sinuses are clear. The mastoid a ir cells are well pneumatized. Orbits: The bony orbits are grossly intact. IMPRESSION: There is no hemorrhage, mass effect, or evidence of acute territorial ischemia by CT criteria. ACT 112: Negative or not required by law. Electronically signed by: Alec Rogers M.D. 08/29/2019 12:[address] SCAN OF THE ABDOMEN AND PELVIS WITHOUT IV CONTRAST CLINICAL HISTORY: Generalized abdominal pain. Recent colonoscopy. History of lung cancer. COMPARISON STUDY: Generalized abdominal pain. Recent colonoscopy. History of lung cancer.. TECHNIQUE: CT scan of the abdomen and pelvis is performed from the lung bases to the proximal femora. Images are reviewed in the axial, sagittal, and coronal planes. IV contrast was not administered for this examination. Note that the examination is suboptimal without IV contrast. There is motion artifact, as well as by streak artifact from the arms which could not be elevated above the abdomen. A dose lowering technique was utilized adhering to the principles of ALARA. FINDINGS: Lung bases: The heart is mildly enlarged and without pericardial effusion. The coronary arteries are densely calcified. There is diminished attenuation of the cardiac blood pool as compared to the myocardium suggesting anemia. Emphysematous change is noted. Postoperative change and volume loss of the right lung base is consistent with previous surgical resection. There is a small chronic appearing right pleural collection with overlying pleural thickening. This is likely related to previous surgery. Scarring/atelectasis is noted at both lung bases. Patchy airspace consolidation is identified in the lingula and at the left lung base. This is new from 08/27/2019. A small to moderate hiatal hernia is noted. Liver: The unenhanced liver is normal in size and contour. The liver demonstrates diffusely diminished attenuation consistent with hepatic steatosis. There is no intrahepatic biliary ductal dilatation. Gallbladder: Unremarkable. Spleen: Normal in size and attenuation. Pancreas: The unenhanced pancreas is atrophic and grossly unremarkable. Adrenal glands: Mild nodularity of the left adrenal gland is unchanged from 2017. The right adrenal gland is normal in appearance. Kidneys: The unenhanced kidneys are normal in size and without hydronephrosis. A tiny nonobstructing calculus is seen in each kidney. There is no evidence of contour deforming renal mass lesion. Abdominal vasculature: The abdominal aorta is normal in course and caliber noting advanced atherosclerotic calcification. Stomach and bowel: The stomach is distended and fluid-filled, as are the proximal small bowel loops. The proximal jejunum measures up to 3.8 cm in diameter. The distal small bowel and colon are decompressed. A transition point is identified in the left anterior abdomen on image #308, and the appearance is consistent with a small bowel obstruction. Disturbances significant change from 08/27/2019. No pneumatosis intestinalis or portal venous gas is seen. No focally thick walled bowel loops are identified. There is moderate sigmoid diverticulosis without CT evidence of acute diverticulitis. The appendix is normal as visualized. Peritoneum: There is no intraperitoneal free air or abdominal ascites. There is a fat-containing umbilical hernia. Lymphadenopathy: None. Pelvic viscera: The prostate gland is enlarged and heterogeneous noting median lobe hypertrophy. The bladder wall partially decompressed and a Zambrano catheter. Foci of intraluminal gas are likely related to instrumentation. Surgical clips are noted along the spermatic cord bilaterally. Skeletal structures: The skeletal structures are osteopenic. Minimal spondylotic changes noted. No lytic or blastic lesions are seen. IMPRESSION: 1. Findings are consistent with a proximal small bowel obstruction as detailed above. This represents a significant change from 08/27/2019 and may be on the basis of adhesions. Surgical consultation is advised. 2. No intraperitoneal free air is seen. There are no focal thick walled bowel identified, no pneumatosis intestinalis, no portal venous gas. 3. Patchy airspace consolidation is seen in the lingula and left lower lobe. The appearance is typical for pneumonia/aspiration pneumonitis and clinical correlation will be required. This is also new from 08/27/2019. 4. Cardiomegaly, emphysema, and postoperative change from right-sided pulmonary resection. 5. Bilateral nephrolithiasis. 6. Additional findings as above. ACT 112: Negative or not required by law. Electronically signed by: Alec Rogers M.D. 08/29/2019 1:05 PM ECG Data Attestation: I personally reviewed and interpreted this ECG as follows: Indication: + tachycardia and + weakness Rate (beats per minute): 126 Rhythm: + sinus tachycardia ECG Intervals/blocks: + Normal QRS and + Normal QT ECG [place]: + Normal ECG ST segments: + ST depression (V4-6, likely rate related) Blood Pressure Blood Pressure Findings: Low blood pressure MDM Narrative This is a 63-year-old man who presented to the emergency department very ill- appearing, immediate attempts were made to establish IV access and draw blood. Patient was started on IV fluids due to hypotension and tachycardia that was noted by staff. Upon my evaluation, patient was arousable and would follow some simple commands, could provide some very simple answers but not otherwise elaborate on his condition. I contacted the to try and obtain additional history. Patient's initial glucose reading was high, given clinical presentation as well as additional information from , we had a strong suspicion for DKA. Labs are drawn and sent, patient continued to be volume resuscitated and did begin to show improvement in his blood pressure and heart rate. Patient was initially markedly tachypneic as well, and with improvement of other vital signs his tachypnea also was improving. We did have some difficulty obtaining an ABG which was finally obtained and showed a pH of 7.04. Patient was started on insulin for his DKA. Given concern for GI symptoms, patient also sent for additional CT imaging which revealed a new small bowel obstruction as well as left lower lobe pneumonia. Additional antibiotics were added. Initially ordered Rocephin, however given various other risks and the patient's past medical history, I waited to expand additional coverage until I discussed this with the hospitalist. They preferred addition of Zosyn given history of vomiting and possibility of aspiration. This was added additionally. We waited staff to obtain nasal swab and continue to stabilize the patient prior to inserting NG tube. I did take some time before the case was able to be discussed with general surgery as they were in the OR completing a case. Dr. Arriaga discussed the case with the health therapist. I did call and update the again regarding his condition and plan. She did state that the patient was to be DNR/DNI. An order was placed for continuous cardiac monitoring. The monitor shows a rate of 126 with sinus tachycardia rhythm. Impression & Plan DKA (diabetic ketoacidoses), Small bowel obstruction, Dehydration, Acute renal failure (ARF), Pneumonia Discharge Plan Visit Data *Final* Discharge Date/Time: 08/29/19 16:02 Chief Complaint: Hyperglycemia Stated Complaint: hyperglycemia ED Provider: Malena Ortega Discharge Problem: DKA (diabetic ketoacidoses), Small bowel obstruction, Dehydration, Acute renal failure (ARF), Pneumonia Patient Disposition: Admitted As Inpatient Discharge Instructions Interventions: ED Discharge Assessment Last Done: 08/29/19 16:02 Discharge Problem: DKA (diabetic ketoacidoses) Qualifiers: Diabetes mellitus type: type 2 Diabetes mellitus complication detail: without coma Qualified Code(s): E11.10 - Type 2 diabetes mellitus with ketoacidosis without coma Acute renal failure (ARF) Qualifiers: Acute renal failure type: unspecified Qualified Code(s): N17.9 - Acute kidney failure, unspecified Pneumonia Qualifiers: Pneumonia type: due to unspecified organism Laterality: left Lung location: lower lobe of lung Qualified Code(s): J18.9 - Pneumonia, unspecified organism
[2019-08-29 12:31] LABS: Appearance Urine Cloudy (Clear); Bacteria Urine Automated Negative (Negative); Bilirubin Urine Negative (Negative); Blood Urine 3+ (Negative); Color Urine Yellow; Glucose Urine UA 3+ (Negative); Ketones Urine 1+ (Negative); Leukocyte Esterase Urine Negative (Negative); Nitrite Urine Negative (Negative); Protein Urine Negative (Negative); RBC Urine Automated 0-4 /hpf (0-4); Specific Gravity Urine 1.029 (1.000-1.030); Urobilinogen Urine Negative (Negative)
[2019-08-29] MEDS ORDERED: INSULIN HUMAN REGULAR PER UNIT 9 UNITS in SYRINGE 8.91 ML IV ONE (12:45)
--- NOTE | 2019-08-29 12:53 | CT Scan Report ---
CT SCAN OF THE BRAIN WITHOUT IV CONTRAST CLINICAL HISTORY: Change in mental status. COMPARISON STUDY: CT of the brain dated 05/29/2014. TECHNIQUE: Unenhanced axial CT scan of the brain is performed from the vertex to the skull base. A d ose lowering technique was utilized adhering to the principles of ALARA. Examination is modestly degr aded by motion artifact. CT DOSE: 4081.83 mGy.cm FINDINGS: Brain parenchyma: The brain parenchyma is normal in appearance. There is no hemorrhage, mass effect, or evidence of acute territorial ischemia by CT criteria. Call-white matter differentiation is preser leodan. There is minimal microangiopathic change. Mineralization is noted in the basal ganglia. No extra -axial fluid collection is seen. Ventricles, sulci, cisterns: Normal in configuration. Intracranial vasculature: There is atherosclerotic calcification of the cavernous carotid and vertebr al arteries. Calvarium: Unremarkable. Sinuses and mastoids: The visualized paranasal sinuses are clear. The mastoid air cells are well pneu matized. Orbits: The bony orbits are grossly intact. IMPRESSION: There is no hemorrhage, mass effect, or evidence of acute territorial ischemia by CT rocio cash. ACT 112: Negative or not required by law. Electronically signed by: Alec Rogers M.D. 08/29/2019 12:52 PM
--- NOTE | 2019-08-29 13:06 | CT Scan Report ---
CT SCAN OF THE ABDOMEN AND PELVIS WITHOUT IV CONTRAST CLINICAL HISTORY: Generalized abdominal pain. Recent colonoscopy. History of lung cancer. COMPARISON STUDY: Generalized abdominal pain. Recent colonoscopy. History of lung cancer.. TECHNIQUE: CT scan of the abdomen and pelvis is performed from the lung bases to the proximal femora. Images are reviewed in the axial, sagittal, and coronal planes. IV contrast was not administered for this examination. Note that the examination is suboptimal without IV contrast. There is motion artif act, as well as by streak artifact from the arms which could not be elevated above the abdomen. A dos e lowering technique was utilized adhering to the principles of ALARA. FINDINGS: Lung bases: The heart is mildly enlarged and without pericardial effusion. The coronary arteries are densely calcified. There is diminished attenuation of the cardiac blood pool as compared to the myoca rdium suggesting anemia. Emphysematous change is noted. Postoperative change and volume loss of the r ight lung base is consistent with previous surgical resection. There is a small chronic appearing rig ht pleural collection with overlying pleural thickening. This is likely related to previous surgery. Scarring/atelectasis is noted at both lung bases. Patchy airspace consolidation is identified in the lingula and at the left lung base. This is new from 08/27/2019. A small to moderate hiatal hernia is no marilyn. Liver: The unenhanced liver is normal in size and contour. The liver demonstrates diffusely diminishe d attenuation consistent with hepatic steatosis. There is no intrahepatic biliary ductal dilatation. Gallbladder: Unremarkable. Spleen: Normal in size and attenuation. Pancreas: The unenhanced pancreas is atrophic and grossly unremarkable. Adrenal glands: Mild nodularity of the left adrenal gland is unchanged from 2017. The right adrenal g land is normal in appearance. Kidneys: The unenhanced kidneys are normal in size and without hydronephrosis. A tiny nonobstructing calculus is seen in each kidney. There is no evidence of contour deforming renal mass lesion. Abdominal vasculature: The abdominal aorta is normal in course and caliber noting advanced atheroscle rotic calcification. Stomach and bowel: The stomach is distended and fluid-filled, as are the proximal small bowel loops. The proximal jejunum measures up to 3.8 cm in diameter. The distal small bowel and colon are decompre ssed. A transition point is identified in the left anterior abdomen on image #308, and the appearance is consistent with a small bowel obstruction. Disturbances significant change from 08/27/2019. No pneu matosis intestinalis or portal venous gas is seen. No focally thick walled bowel loops are identified . There is moderate sigmoid diverticulosis without CT evidence of acute diverticulitis. The appendix is normal as visualized. Peritoneum: There is no intraperitoneal free air or abdominal ascites. There is a fat-containing umbi lical hernia. Lymphadenopathy: None. Pelvic viscera: The prostate gland is enlarged and heterogeneous noting median lobe hypertrophy. The bladder wall partially decompressed and a Zambrano catheter. Foci of intraluminal gas are likely related to instrumentation. Surgical clips are noted along the spermatic cord bilaterally. Skeletal structures: The skeletal structures are osteopenic. Minimal spondylotic changes noted. No ly tic or blastic lesions are seen. IMPRESSION: 1. Findings are consistent with a proximal small bowel obstruction as detailed above. This represents a significant change from 08/27/2019 and may be on the basis of adhesions. Surgical consultation is ad vised. 2. No intraperitoneal free air is seen. There are no focal thick walled bowel identified, no pneumato sis intestinalis, no portal venous gas. 3. Patchy airspace consolidation is seen in the lingula and left lower lobe. The appearance is typica l for pneumonia/aspiration pneumonitis and clinical correlation will be required. This is also new fr om 08/27/2019. 4. Cardiomegaly, emphysema, and postoperative change from right-sided pulmonary resection. 5. Bilateral nephrolithiasis. 6. Additional findings as above. ACT 112: Negative or not required by law. Electronically signed by: Alec Rogers M.D. 08/29/2019 1:05 PM
[2019-08-29 13:08] LABS: Albumin Level 3.6 gm/dl (3.4-5.0); BUN Creatinine Ratio 16.6 (10-20); Bilirubin,Total 0.6 mg/dl (0.2-1); Calcium 9.3 mg/dl (8.5-10.1); Creatinine Clr Calc Pharmacy 20.1 ml/min; Est GFR (African American) 16.5; Est GFR (Non-African American) 14.2; Magnesium 3.6 mg/dl (1.8-2.4); Phosphorus 8.2 mg/dl (2.5-4.9); Potassium 5.2 mmol/L (3.5-5.1)
[2019-08-29] MEDS: INSULIN REGULAR 250 UNITS in SODIUM CHLORIDE 0.9% 247.5 ML IV SCH (13:15)
[2019-08-29 13:28] LABS: Globulin 3.6 gm/dl (2.5-4.0); Total Protein 7.2 gm/dl (6.4-8.2)
[2019-08-29 13:31] LABS: Beta-Hydroxybutyrate 107.96 mg/dl (0.2-2.81)
[2019-08-29] MEDS ORDERED: cefTRIAXone SODIUM 2,000 MG/70 ML BAG IV STA (13:32)
--- NOTE | 2019-08-29 13:32 | XRay Report ---
SINGLE VIEW CHEST CLINICAL HISTORY: Tachypnea. FINDINGS: An AP, portable, semierect chest radiograph is compared to study dated 02/27/2018 and correl ated with chest CT dated 06/26/2019. The examination is degraded by portable technique and patient rota tion. The heart is enlarged. The pulmonary vasculature is noncongested. Emphysema and postoperative c hange from right-sided pulmonary resection is similar to previous. A chronic right pleural effusion i s again noted. Patchy airspace consolidation is seen at the left lung base. No airspace consolidation is seen on the right. No pneumothorax is identified. The skeletal structures are osteopenic. The bon y thorax is grossly intact. IMPRESSION: 1. Patchy airspace consolidation is seen at the left lung base. Correlate clinically for evidence of pneumonia/aspiration pneumonitis. 2. Cardiomegaly, emphysema, postoperative change from right-sided resection, and a small right pleura l effusion are similar to prior studies. ACT 112: Negative or not required by law. Electronically signed by: Alec Rogers M.D. 08/29/2019 1:30 PM
[2019-08-29 13:50] LABS: Allen Test Pos (Pos); Base Excess ABG -22.4 mEq/L (-9-1.8); HCO3 ABG 7 mmol/L (19-24); Oxygen Saturation ABG 95.1 % (90-95); PCO2 ABG 27 mmHg (35-46); PO2 ABG 92 mmHg (80-95); pH ABG 7.04 (7.35-7.45)
[2019-08-29 13:52] LABS: Hematocrit (blood only) 51.9 % (42-52); Hemoglobin 16.4 g/dL (14.0-18.0); Mean Corpuscular Hemoglobin 28.2 pg (25-34); Mean Corpuscular Hgb Conc 31.6 g/dL (32-36); Mean Corpuscular Volume 89.3 fL (80-100); Platelet Count 418 K/uL (130-400); Red Blood Count 5.81 M/uL (4.7-6.1); White Blood Count 27.67 K/uL (4.8-10.8)
[2019-08-29 13:54] LABS: Eosinophils # (auto) 0.04 K/uL (0-0.5); Eosinophils % (auto) 0.1 %; Immature Granulocytes # (auto) 0.21 K/uL (0.00-0.02); Immature Granulocytes % (auto) 0.8 %; Lymphocytes # (auto) 0.59 K/uL (1.2-3.4); Lymphocytes % (auto) 2.1 %; Monocytes # (auto) 3.46 K/uL (0.11-0.59); Monocytes % (auto) 12.5 %; Neutrophils # (auto) 23.37 K/uL (1.4-6.5); Neutrophils % (auto) 84.5 %
[2019-08-29] MEDS: LACTATED RINGER'S 1,000 ML IV SCH ×2 (13:54→16:57)
[2019-08-29] MEDS ORDERED: PIPERACILLIN/TAZOBACTAM 4.5 GM/120 ML BAG IV ONE (14:12)
[2019-08-29] MEDS ORDERED: PIPERACILL/TAZOBAC CONSULT ACTIVE PRN ×2 (14:12→16:34)
--- NOTE | 2019-08-29 14:25 | History & Physical Report ---
Date of Service August 29, 2019 Assessment & Plan (1) DKA (diabetic ketoacidoses): This patient is a 63-year-old male with a history of NSCLC, COPD, DM 2, GERD, hyperlipidemia, HTN, intercostal neuralgia, migraine, osteoarthritis, peripheral neuropathy, who presents to the ER with worsening weakness, nausea/vomiting and hyperglycemia. He started a bowel prep for colonoscopy this past Saturday and had loose stools through the night as expected. He then was having nausea and vomiting when he presented for his colonoscopy and the procedure was canceled. He was sent for CT scan of the abdomen/pelvis on 08/26 did not show any evidence of acute issues. He then went home and proceeded to continue to have nausea and vomiting. He was unable to take any of his medications and also stopped taking all of his insulin. His called for an ambulance when he was too weak to get out of bed today. In the ER, he was found to have a blood sugar of 1585, was tachycardic to the 120s hypotensive with systolic blood pressure in the 80s, tachypneic. He had a WBC count elevated at 27, metabolic acidosis with an anion gap of 28, ABG was 7.0 07/20/1991 on 2 L nasal cannula. Chest x-ray revealed a left lower lobe pneumonitis. A CT scan of the abdomen/pelvis showed findings consistent with a proximal small bowel obstruction, no intraperitoneal free air, pneumatosis intestinalis, and no portal venous gas. He was combative at times and very lethargic. He was given 2 L normal saline, IV Rocephin for the pneumonia, and started on insulin drip. An NG tube was then placed. -Admit to ICU for DKA likely secondary to noncompliance with insulin in setting of nausea/vomiting and SBO -Continue insulin drip and DKA protocol, checking serial labs and electrolyte replacement as needed -Continue Normosol-R1 150 mL's per hour which will give him approximately 3.6 L of fluid over the next 24 hours, changing to half-normal saline with 20 mEq KCl once potassium less than 5.1, and change to D5 half-normal saline with 20 mEq KCl once blood glucose to goal range -Serial VBG's -Pharmacy glycemic management is consulted -Appreciate family court justice management -Blood pressures are low normal but should improve with volume resuscitation (2) Small bowel obstruction: With development of SBO in the last 48 hours in the proximal small bowel since previous CT 08/26. This came on after doing a bowel prep for colonoscopy. Could be ileus secondary to severe DKA, appreciate general surgery input. He was having the colonoscopy due to a positive Cologuard test, this does suggest malignancy somewhere in the gastrointestinal tract. -NG tube placed in the ER for large amount of dark brown/green fluid -Giving IV fluids as above and electrolyte replacement -Monitor for improvement (3) Dehydration: Due to previous nausea/vomiting and severe DKA -Giving IV fluids as above and insulin drip to control blood sugars Corrected sodium for glucose is elevated at 148 -Follow BMP and electrolytes -Lactate mildly elevated likely secondary to hypoperfusion-follow (4) Acute respiratory failure with hypoxia: Secondary to aspiration pneumonitis, with left lower lobe infiltrate on ch est x-ray Also with tachypnea secondary to DKA Requiring 3 L nasal cannula in the ER -Wean off oxygen as able to -Treating with IV Zosyn for aspiration pneumonitis (5) Pneumonitis: As above, with leukocytosis, afebrile, LLL infiltrate on CXR -Continue IV Zosyn Likely secondary to aspiration (6) TALIA (acute kidney injury): Creatinine up to 4 on admission from baseline of 0.8 Secondary to DKA and dehydration -IV fluids -Follow BMP Potassium should come down on insulin drip Hyperphosphatemia as well should improve with improvement in renal function with hydration -Holding home lisinopril (7) Leukocytosis: Secondary to stress of DKA, nausea/vomiting, possible aspiration pneumonia -Follow CBC -Follow blood cultures (8) Hyperkalemia: Potassium 5.2 as above -Should improve with insulin drip and IV fluids -Will add potassium to fluid once potassium less than 5.1 on serial chemistries (9) Hyperphosphatemia: Elevated phosphorus likely secondary to renal failure and dehydration as above -Follow phosphorus levels serially Should improve with hydration (10) Diabetes mellitus type 2, controlled, with complications: Hemoglobin A1c only 6.8% just 2 months ago Daughter reports on the phone that he has been having high blood sugars lately and very labile -Check hemoglobin A1c here -Insulin drip and management of DKA as above (11) Hypertension: Blood pressures low secondary to significant volume depletion -Holding home lisinopril (12) GERD (gastroesophageal reflux disease): -Not on medication at home for this -Added IV Protonix for GI protection while in the ICU (13) Hypercholesterolemia: Noted as a diagnosis in the chart, but not on any medication for this -Should be on a statin given diabetes and age with high risk for heart disease (14) Non-small cell lung cancer (NSCLC): With a history of right middle lobe and right lower lobectomies and mediastinal lymphadenectomy Status post chemotherapy and radiation -Continue follow-up as an outpatient -With small pleural effusion here seen on imaging likely chronic -He has a history of chronic intercostal neuralgia and takes gabapentin-hold gabapentin while n.p.o. (15) DVT prophylaxis: SCDs, hold off on chemical anticoagulation at this time in case of need for surgery Disposition-admit to ICU, critically ill DNR/DNI as discussed with patient's and daughter Of note, the patient's has a history of stroke and has difficulty with her memory. The patient's daughter, Samantha Tolentino #[phone], should be the primary point of contact History of Present Illness Chief Complaint: Nausea/vomiting/weakness, hyperglycemia Primary Care Provider: Rolly Conde MD This patient is a 63-year-old male with a history of NSCLC, COPD, DM 2, GERD, hyperlipidemia, HTN, intercostal neuralgia, migraine, osteoarthritis, peripheral neuropathy, who presents to the ER with worsening weakness, nausea/vomiting and hyperglycemia. He started a bowel prep for colonoscopy this past Saturday and had loose stools through the night as expected. He then was having nausea and vomiting when he presented for his colonoscopy and the procedure was canceled. He was sent for CT scan of the abdomen/pelvis on 08/26 did not show any evidence of acute issues. He then went home and proceeded to continue to have nausea and vomiting. He was unable to take any of his medications and also stopped taking all of his insulin. His called for an ambulance when he was too weak to get out of bed today. In the ER, he was found to have a blood sugar of 1585, was tachycardic to the 120s hypotensive with systolic blood pressure in the 80s, tachypneic. He had a WBC count elevated at 27, metabolic acidosis with an anion gap of 28, ABG was 7.0 07/20/1991 on 2 L nasal cannula. Chest x-ray revealed a left lower lobe pneumonitis. A CT scan of the abdomen/pelvis showed findings consistent with a proximal small bowel obstruction, no intraperitoneal free air, pneumatosis intestinalis, and no portal venous gas. He was combative at times and very lethargic. He was given 2 L normal saline, IV Rocephin for the pneumonia, and started on insulin drip. When I saw him, he was quite lethargic, but did respond to verbal stimulus and open his eyes and moaned at me when I asked him a question. He was unable to give any other history. I spoke with his daughter, Samantha, as well as his , , on the phone for more history. They confirmed the above history. His daughter also was very clear that her father wants to be a DNR/DNI and she is paperwork at home stating this that he provided her. I discussed the case with the family court justice who is willing to accept the patient if surgery is willing to accept him at this facility. Surgical consultation was requested-I spoke with the surgeon who is accepting of this patient at this facility as well. NG tube was placed in the ER and he immediately had over a canister of output. Allergies Allergy/AdvReac Type Severity Reaction Status Date / Time varenicline AdvReac Unknown WEIRD Verified 08/29/19 15:57 DREAMS Home Medications Home Medications Medication Instructions Recorded Confirmed Type aspirin 325 mg tablet 0 mg PO QAM 12/10/17 08/29/19 History lisinopril 10 mg PO QAM 06/04/19 08/29/19 History insulin lispro 100 unit/mL 35 units SQ TID #10 ml 07/03/19 08/29/19 Rx subcutaneous solution gabapentin 300 mg PO TID 08/29/19 08/29/19 History insulin glargine [Lantus U-100 70 units SQ HS 08/29/19 08/29/19 History Insulin] Past Med/Surg History Medical History Chronic obstructive pulmonary disease Diabetes mellitus, type 2 IDDM GERD (gastroesophageal reflux disease) per records Hyperlipidemia Hypertension 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- MAC sedation at [facility] without issue Lung cancer hx (chemo 10/2016, radiation 10/2016) Migraine hx Osteoarthritis Peripheral neuropathy Pneumothorax hx Surgical History History of anesthesia reaction Slow to wake History of arthroscopy LEFT SHOULDER-03/2019 History of bronchoscopy History of foot surgery plantar fasciitis surgery -LEFT FOOT History of lobectomy of lung RML, RLL 10/2017- residual right sided neuralgia status post surgery History of lobectomy of lung RML/RLL ?10/2016- RESIDUAL RIGHT SIDED NEURALGIA S/P SURGERY PER RECORDS History of repair of left rotator cuff (~03/2019) History of tonsillectomy History of tooth extraction Intercostal neuralgia s/p T11-T12 intercostal RFA 10/01/17- MAC sedation at [facility] s/p T7, 8, 9 intercostal RFA 12/10/17= MAC sedation at [facility] Nausea and vomiting after administration of anesthetic agent Family History Father Family history of diabetes mellitus Coronary heart disease Sister Family history of diabetes mellitus Mother Breast cancer Daughter No problems noted. Brother Coronary heart disease Social History Preferred Language: Occitan Communication Ability: Effective Visual Impairment: No Limitations Automated Logistics Specialist Required: No Beliefs That Will Affect Care: None marital status: Current Living Situation: Spouse Feels Safe at Home: Yes Smoking Status: Unknown if ever smoked Hx Alcohol Use: No Hx Substance Use: No Review of Systems Review of Systems: Unobtainable due to reduced consciousness Physical Exam Constitutional: + ill appearing, average body habitus and + lethargic Eyes: + anicteric sclerae ENMT: Mouth: + oral mucosal abnormality (very dry) Neck: trachea midline, no thyromegaly Respiratory: + tachypneic (mild) Auscultation: + rhonchi (bilateral); no wheezes Cardiovascular: Rate/Rhythm: regular rhythm and + tachycardic Heart Sounds: no murmur Extremities: no edema Chest (Breasts): Chest: normal inspection of chest Gastrointestinal (Abdomen): Inspection/Auscultation: + abdomen distended (mild) and + hypoactive bowel sounds Percussion/Palpation: abdomen soft (Softly distended); abdomen nontender (but patient is very lethargic) Musculoskeletal: Extremities: extremities normal to inspection; no cyanosis and no clubbing Skin: no rashes, warm and dry Neurologic: moves all extremities (Voluntarily moves extremities but does not follow commands) and + confused; + not awake Motor/Sensory: no tremor Genitourinary: Zambrano catheter in place with clear yellow urine Lymphatic: no lymphedema Results & Data Results & Data ([facility]) Vital Signs (Past 12 Hours) Vital Signs Temp Pulse Resp BP Pulse Ox 08/29/19 13:20 122 H 31 H 97/57 L 97 08/29/19 13:10 124 H 35 H 91/57 L 96 08/29/19 12:30 126 H 32 H 89/58 L 98 08/29/19 12:29 127 H 34 H 109/57 L 96 08/29/19 12:10 36.7 C 127 H 32 H 97/59 L 93 Laboratory Results 08/29/19 08/29/19 08/29/19 Range/Units 14:20 14:20 13:42 WBC (4.8-10.8) K/uL RBC (4.7-6.1) M/uL Hgb (14.0-18.0) g/dL POC Hgb (14.0-18.0) g/dl Hct (42-52) % POC Hct (42-52) % MCV (80-100) fL MCH (25-34) pg MCHC (32-36) g/dL Plt Count (130-400) K/uL Immature Gran % (Auto) % Neut % (Auto) % Lymph % (Auto) % [place] % (Auto) % Eos % (Auto) % Baso % (Auto) % Immature Gran # (Auto) (0.00-0.02) K/uL Neut # (Auto) (1.4-6.5) K/uL Lymph # (Auto) (1.2-3.4) K/uL [place] # (Auto) (0.11-0.59) K/uL Eos # (Auto) (0-0.5) K/uL Baso # (Auto) (0-0.2) K/uL ABG pH (7.35-7.45) ABG pCO2 (35-46) mmHg ABG pO2 (80-95) mmHg ABG HCO3 (19-24) mmol/L ABG O2 Saturation (90-95) % ABG Base Excess (-9-1.8) mEq/L Jose D Test (Pos) Barometric Pressure mm/Hg Oxygen Given POC Sodium (135-144) mmol/L Sodium Pending (136-145) mmol/L POC Potassium (3.3-5.0) mmol/L Potassium Pending (3.5-5.1) mmol/L POC Chloride (101-112) mmol/L Chloride Pending (98-107) mmol/L Carbon Dioxide Pending (21-32) mmol/L POC Total CO2 (24-31) mmol/L Anion Gap Pending (3-11) POC Anion Gap (16-25) mmol/L POC BUN (7-18) mg/dl BUN Pending (7-18) mg/dl Creatinine Pending (0.6-1.4) mg/dl POC Creatinine (0.6-1.3) mg/dl Est Cr Clr Drug Dosing Pending ml/min Est GFR ( Amer) Pending Est GFR (Non-Af Amer) Pending BUN/Creatinine Ratio Pending (10-20) Glucose Pending (70-99) mg/dl POC Glucose (other) (70-99) mg/dl Estimat Average Glucose Hemoglobin A1c Lactate Pending Calcium Pending (8.5-10.1) mg/dl POC Ioniz Calcium Daina (1.12-1.32) mmol/l Phosphorus (2.5-4.9) mg/dl Magnesium (1.8-2.4) mg/dl Total Bilirubin (0.2-1) mg/dl AST (15-37) U/L ALT (12-78) U/L Alkaline Phosphatase (45-117) U/L Total Protein (6.4-8.2) gm/dl Albumin (3.4-5.0) gm/dl Globulin (2.5-4.0) gm/dl Albumin/Globulin Ratio (0.9-2) Beta-Hydroxybutyric Acd (0.2-2.81) mg/dl Urine Color Urine Appearance (Clear) Urine pH (4.5-7.5) Ur Specific [place] (1.000-1.030) Urine Protein (Negative) Urine Glucose (UA) (Negative) Urine Ketones (Negative) Urine Blood (Negative) Urine Nitrite (Negative) Urine Bilirubin (Negative) Urine Urobilinogen (Negative) Ur Leukocyte Esterase (Negative) Urine WBC (Auto) (0-5) /hpf Urine RBC (Auto) (0-4) /hpf U Hyaline Cast (Auto) (0-5) /lpf U Epithel Cells (Auto) (0-5) /lpf Urine Bacteria (Auto) (Negative) Nasal Screen MRSA (PCR) Pending 08/29/19 08/29/19 08/29/19 Range/Units 13:36 12:20 12:03 WBC (4.8-10.8) K/uL RBC (4.7-6.1) M/uL Hgb (14.0-18.0) g/dL POC Hgb 16.7 (14.0-18.0) g/dl Hct (42-52) % POC Hct 49 (42-52) % MCV (80-100) fL MCH (25-34) pg MCHC (32-36) g/dL Plt Count (130-400) K/uL Immature Gran % (Auto) % Neut % (Auto) % Lymph % (Auto) % [place] % (Auto) % Eos % (Auto) % Baso % (Auto) % Immature Gran # (Auto) (0.00-0.02) K/uL Neut # (Auto) (1.4-6.5) K/uL Lymph # (Auto) (1.2-3.4) K/uL [place] # (Auto) (0.11-0.59) K/uL Eos # (Auto) (0-0.5) K/uL Baso # (Auto) (0-0.2) K/uL ABG pH 7.04 L* (7.35-7.45) ABG pCO2 27 L (35-46) mmHg ABG pO2 92 (80-95) mmHg ABG HCO3 7 L (19-24) mmol/L ABG O2 Saturation 95.1 H (90-95) % ABG Base Excess -22.4 L (-9-1.8) mEq/L Jose D Test Pos (Pos) Barometric Pressure 728.4 mm/Hg Oxygen Given 2 L POC Sodium 122 L (135-144) mmol/L Sodium (136-145) mmol/L POC Potassium 5.2 H (3.3-5.0) mmol/L Potassium (3.5-5.1) mmol/L POC Chloride 92 L (101-112) mmol/L Chloride (98-107) mmol/L Carbon Dioxide (21-32) mmol/L POC Total CO2 10 L (24-31) mmol/L Anion Gap (3-11) POC Anion Gap 27.0 H (16-25) mmol/L POC BUN 62 H (7-18) mg/dl BUN (7-18) mg/dl Creatinine (0.6-1.4) mg/dl POC Creatinine 3.3 H (0.6-1.3) mg/dl Est Cr Clr Drug Dosing ml/min Est GFR ( Amer) Est GFR (Non-Af Amer) BUN/Creatinine Ratio (10-20) Glucose (70-99) mg/dl POC Glucose (other) > 700 H* (70-99) mg/dl Estimat Average Glucose Hemoglobin A1c Lactate Calcium (8.5-10.1) mg/dl POC Ioniz Calcium Daina 1.28 (1.12-1.32) mmol/l Phosphorus (2.5-4.9) mg/dl Magnesium (1.8-2.4) mg/dl Total Bilirubin (0.2-1) mg/dl AST (15-37) U/L ALT (12-78) U/L Alkaline Phosphatase (45-117) U/L Total Protein (6.4-8.2) gm/dl Albumin (3.4-5.0) gm/dl Globulin (2.5-4.0) gm/dl Albumin/Globulin Ratio (0.9-2) Beta-Hydroxybutyric Acd (0.2-2.81) mg/dl Urine Color Yellow Urine Appearance Cloudy A (Clear) Urine pH 5.0 (4.5-7.5) Ur Specific [place] 1.029 (1.000-1.030) Urine Protein Negative (Negative) Urine Glucose (UA) 3+ H (Negative) Urine Ketones 1+ H (Negative) Urine Blood 3+ H (Negative) Urine Nitrite Negative (Negative) Urine Bilirubin Negative (Negative) Urine Urobilinogen Negative (Negative) Ur Leukocyte Esterase Negative (Negative) Urine WBC (Auto) 1-5 (0-5) /hpf Urine RBC (Auto) 0-4 (0-4) /hpf U Hyaline Cast (Auto) 1-5 (0-5) /lpf U Epithel Cells (Auto) 10-20 H (0-5) /lpf Urine Bacteria (Auto) Negative (Negative) Nasal Screen MRSA (PCR) 08/29/19 08/29/19 08/29/19 Range/Units 11:59 11:59 11:59 WBC 27.67 H (4.8-10.8) K/uL RBC 5.81 (4.7-6.1) M/uL Hgb 16.4 (14.0-18.0) g/dL POC Hgb (14.0-18.0) g/dl Hct 51.9 (42-52) % POC Hct (42-52) % MCV 89.3 (80-100) fL MCH 28.2 (25-34) pg MCHC 31.6 L (32-36) g/dL Plt Count 418 H (130-400) K/uL Immature Gran % (Auto) 0.8 % Neut % (Auto) 84.5 % Lymph % (Auto) 2.1 % [place] % (Auto) 12.5 % Eos % (Auto) 0.1 % Baso % (Auto) 0.0 % Immature Gran # (Auto) 0.21 H (0.00-0.02) K/uL Neut # (Auto) 23.37 H (1.4-6.5) K/uL Lymph # (Auto) 0.59 L (1.2-3.4) K/uL [place] # (Auto) 3.46 H (0.11-0.59) K/uL Eos # (Auto) 0.04 (0-0.5) K/uL Baso # (Auto) 0.00 (0-0.2) K/uL ABG pH (7.35-7.45) ABG pCO2 (35-46) mmHg ABG pO2 (80-95) mmHg ABG HCO3 (19-24) mmol/L ABG O2 Saturation (90-95) % ABG Base Excess (-9-1.8) mEq/L Jose D Test (Pos) Barometric Pressure mm/Hg Oxygen Given POC Sodium (135-144) mmol/L Sodium 124 L (136-145) mmol/L POC Potassium (3.3-5.0) mmol/L Potassium 5.2 H (3.5-5.1) mmol/L POC Chloride (101-112) mmol/L Chloride 86 L (98-107) mmol/L Carbon Dioxide 10 L (21-32) mmol/L POC Total CO2 (24-31) mmol/L Anion Gap 28.0 H (3-11) POC Anion Gap (16-25) mmol/L POC BUN (7-18) mg/dl BUN 68 H (7-18) mg/dl Creatinine 4.12 H (0.6-1.4) mg/dl POC Creatinine (0.6-1.3) mg/dl Est Cr Clr Drug Dosing 20.1 ml/min Est GFR ( Amer) 16.5 Est GFR (Non-Af Amer) 14.2 BUN/Creatinine Ratio 16.6 (10-20) Glucose 1585 H* (70-99) mg/dl POC Glucose (other) (70-99) mg/dl Estimat Average Glucose Pending Hemoglobin A1c Pending Lactate Calcium 9.3 (8.5-10.1) mg/dl POC Ioniz Calcium Daina (1.12-1.32) mmol/l Phosphorus 8.2 H (2.5-4.9) mg/dl Magnesium 3.6 H (1.8-2.4) mg/dl Total Bilirubin 0.6 (0.2-1) mg/dl AST 35 (15-37) U/L ALT 36 (12-78) U/L Alkaline Phosphatase 147 H (45-117) U/L Total Protein 7.2 (6.4-8.2) gm/dl Albumin 3.6 (3.4-5.0) gm/dl Globulin 3.6 (2.5-4.0) gm/dl Albumin/Globulin Ratio 1.0 (0.9-2) Beta-Hydroxybutyric Acd 107.96 H (0.2-2.81) mg/dl Urine Color Urine Appearance (Clear) Urine pH (4.5-7.5) Ur Specific [place] (1.000-1.030) Urine Protein (Negative) Urine Glucose (UA) (Negative) Urine Ketones (Negative) Urine Blood (Negative) Urine Nitrite (Negative) Urine Bilirubin (Negative) Urine Urobilinogen (Negative) Ur Leukocyte Esterase (Negative) Urine WBC (Auto) (0-5) /hpf Urine RBC (Auto) (0-4) /hpf U Hyaline Cast (Auto) (0-5) /lpf U Epithel Cells (Auto) (0-5) /lpf Urine Bacteria (Auto) (Negative) Nasal Screen MRSA (PCR) Diagnostic Findings CT SCAN OF THE BRAIN WITHOUT IV CONTRAST CLINICAL HISTORY: Change in mental status. COMPARISON STUDY: CT of the brain dated 05/29/2014. TECHNIQUE: Unenhanced axial CT scan of the brain is performed from the vertex to the skull base. A dose lowering technique was utilized adhering to the principles of ALARA. Examination is modestly degraded by motion artifact. CT DOSE: 4081.83 mGy.cm FINDINGS: Brain parenchyma: The brain parenchyma is normal in appearance. There is no hemorrhage, mass effect, or evidence of acute territorial ischemia by CT criteria. Call-white matter differentiation is preserved. There is minimal microangiopathic change. Mineralization is noted in the basal ganglia. No extra- axial fluid collection is seen. Ventricles, sulci, cisterns: Normal in configuration. Intracranial vasculature: There is atherosclerotic calcification of the cav ernous carotid and vertebral arteries. Calvarium: Unremarkable. Sinuses and mastoids: The visualized paranasal sinuses are clear. The mastoid air cells are well pneumatized. Orbits: The bony orbits are grossly intact. IMPRESSION: There is no hemorrhage, mass effect, or evidence of acute territorial ischemia by CT criteria. CT SCAN OF THE ABDOMEN AND PELVIS WITHOUT IV CONTRAST CLINICAL HISTORY: Generalized abdominal pain. Recent colonoscopy. History of lung cancer. COMPARISON STUDY: Generalized abdominal pain. Recent colonoscopy. History of lung cancer.. TECHNIQUE: CT scan of the abdomen and pelvis is performed from the lung bases to the proximal femora. Images are reviewed in the axial, sagittal, and coronal planes. IV contrast was not administered for this examination. Note that the examination is suboptimal without IV contrast. There is motion artifact, as well as by streak artifact from the arms which could not be elevated above the abdomen. A dose lowering technique was utilized adhering to the principles of ALARA. FINDINGS: Lung bases: The heart is mildly enlarged and without pericardial effusion. The coronary arteries are densely calcified. There is diminished attenuation of the cardiac blood pool as compared to the myocardium suggesting anemia. Emphysematous change is noted. Postoperative change and volume loss of the right lung base is consistent with previous surgical resection. There is a small chronic appearing right pleural collection with overlying pleural thickening. This is likely related to previous surgery. Scarring/atelectasis is noted at both lung bases. Patchy airspace consolidation is identified in the lingula and at the left lung base. This is new from 08/27/2019. A small to moderate hiatal hernia is noted. Liver: The unenhanced liver is normal in size and contour. The liver demonstrates diffusely diminished attenuation consistent with hepatic steatosis. There is no intrahepatic biliary ductal dilatation. Gallbladder: Unremarkable. Spleen: Normal in size and attenuation. Pancreas: The unenhanced pancreas is atrophic and grossly unremarkable. Adrenal glands: Mild nodularity of the left adrenal gland is unchanged from 20 17. The right adrenal gland is normal in appearance. Kidneys: The unenhanced kidneys are normal in size and without hydronephrosis. A tiny nonobstructing calculus is seen in each kidney. There is no evidence of contour deforming renal mass lesion. Abdominal vasculature: The abdominal aorta is normal in course and caliber noting advanced atherosclerotic calcification. Stomach and bowel: The stomach is distended and fluid-filled, as are the proximal small bowel loops. The proximal jejunum measures up to 3.8 cm in diameter. The distal small bowel and colon are decompressed. A transition point is identified in the left anterior abdomen on image #308, and the appearance is consistent with a small bowel obstruction. Disturbances significant change from 08/27/2019. No pneumatosis intestinalis or portal venous gas is seen. No focally thick walled bowel loops are identified. There is moderate sigmoid diverticulosis without CT evidence of acute diverticulitis. The appendix is normal as visualized. Peritoneum: There is no intraperitoneal free air or abdominal ascites. There is a fat-containing umbilical hernia. Lymphadenopathy: None. Pelvic viscera: The prostate gland is enlarged and heterogeneous noting median lobe hypertrophy. The bladder wall partially decompressed and a Zambrano catheter. Foci of intraluminal gas are likely related to instrumentation. Surgical clips are noted along the spermatic cord bilaterally. Skeletal structures: The skeletal structures are osteopenic. Minimal spondylotic changes noted. No lytic or blastic lesions are seen. IMPRESSION: 1. Findings are consistent with a proximal small bowel obstruction as detailed above. This represents a significant change from 08/27/2019 and may be on the basis of adhesions. Surgical consultation is advised. 2. No intraperitoneal free air is seen. There are no focal thick walled bowel identified, no pneumatosis intestinalis, no portal venous gas. 3. Patchy airspace consolidation is seen in the lingula and left lower lobe. The appearance is typical for pneumonia/aspiration pneumonitis and clinical correlation will be required. This is also new from 08/27/2019. 4. Cardiomegaly, emphysema, and postoperative change from right-sided pulmonary resection. 5. Bilateral nephrolithiasis. 6. Additional findings as above. ECG Additional Comments: ECG with sinus tachycardia, rate 126, no ischemic changes Code Status & VTE Plan Code Status DNR/DNI VTE Prophylaxis Plan VTE Prophylaxis will be ordered: Yes PG Care Time/CCT Total # of Minutes Spent Total Time Spent with Patient: Total time spent is greater than 50% in coordination of care (as documented) at patient's floor/unit and/or counseling patient: Coding Level of Care Code 99793 Initial Inpt Care Lvl 3 Diagnoses DKA (diabetic ketoacidoses) E11.10 Small bowel obstruction K56.609 Dehydration E86.0 Acute respiratory failure with hypoxia J96.01 Pneumonitis J18.9 TALIA (acute kidney injury) N17.9 Leukocytosis D72.829 Hyperkalemia E87.5 Hyperphosphatemia E83.39 Diabetes mellitus type 2, controlled, with complications E11.8 Hypertension I10 GERD (gastroesophageal reflux disease) K21.9 Hypercholesterolemia E78.00 Non-small cell lung cancer (NSCLC) C34.90 DVT prophylaxis Z29.9
[2019-08-29 15:22] LABS: BUN Creatinine Ratio 16.3 (10-20); Calcium 8.5 mg/dl (8.5-10.1); Est GFR (African American) 16.3; Est GFR (Non-African American) 14.1; Potassium 4.4 mmol/L (3.5-5.1)
[2019-08-29 15:58] LABS: Beta-Hydroxybutyrate 102.88 mg/dl (0.2-2.81)
--- NOTE | 2019-08-29 16:03 | Surgery Consultation ---
Date of Consultation August 29, 2019 Assessment & Plan (1) Acute respiratory failure with hypoxia: pt is a 63 year-old male who was admitted to hospital for nausea, vomiting, abdominal pain, IMP: SBO, dehydration, acute renal failure, Plan, no emergent surgical indication now, I agree with conservation treatment, IV fluid, antibiotic, NG tube, repeat labs in am, will F/U, D/W hospitalist, pt's . (2) Dehydration: (3) Hyperkalemia: (4) Pneumonitis: (5) Small bowel obstruction: History of Present Illness History of Present Illness History of Present Illness General Chief complaint: Hyperglycemia Stated complaint: hyperglycemia Time Seen by Provider: 08/29/19 12:06 Source: patient and EMS Mode of arrival: EMS Limitations: clinical acuity History of Present Illness Provider complaint: weakness, vomiting, diarrhea Onset (ago): day(s) 4 Location: abdomen Radiation: abdomen Severity: moderate Relieved By: + none Associated symptoms: + malaise, + nausea/vomiting and + weakness; no chest pain and no shortness of breath Treatments prior to arrival: none This is a 63-year-old man brought in by EMS from home due to weakness, nausea and vomiting. Per EMS symptoms started on Saturday as patient was drinking in preparation for colonoscopy. Patient has not been taking his routine medications due to vomiting which began after starting the prep. Today told him patient was very weak and washed out and could not get out of bed. He was trying to sip some water. Their check of the patient's glucose read high. Patient here complaining of needing to pee however when assisted by nursing staff he was unable to so they placed a Zambrano catheter. Patient states he has been having bladder pain all morning. Patient states he has not been checking her sugars or taking his insulin. Patient does appear to be in distress and has had difficulty answering any additional questions. I ( Medardo Monson MD ) got a call for consult SBO, I reviewed pt's H/P, Labs, CT scan with pt's , Pt seen during a time of high acuity and national emergency pandemic while wearing PPE. Home Medications Home Medications Medication Instructions Recorded Confirmed Type aspirin 325 mg tablet 0 mg PO QAM 12/10/17 08/29/19 History simvastatin 80 mg tablet See Rx Instructions .ROUTE 04/13/19 08/29/19 Rx .COMPLEX #90 tablet peg 3350-electrolytes 236 240 ml PO Q10M #4000 ml 06/03/19 08/29/19 Rx gram-22.74 gram-6.74 gram-5.86 gram solution lisinopril 0 mg PO QAM 06/04/19 08/29/19 History insulin glargine 100 unit/mL 70 units SQ PM #10 ml 07/03/19 08/29/19 Rx subcutaneous solution insulin lispro 100 unit/mL 35 units SQ TID #10 ml 07/03/19 08/29/19 Rx subcutaneous solution gabapentin 300 mg PO TID 08/29/19 08/29/19 History ondansetron HCl [Zofran] 0 mg PO Q6H PRN 08/29/19 08/29/19 History oxycodone-acetaminophen [Percocet] 0 tab PO Q6H PRN 08/29/19 08/29/19 History propranolol 0 mg PO QAM 08/29/19 08/29/19 History Allergies Allergy/AdvReac Type Severity Reaction Status Date / Time varenicline AdvReac Unknown WEIRD Verified 08/27/19 12:33 DREAMS Past Med/Surg History Medical History Chronic obstructive pulmonary disease Diabetes mellitus, type 2 IDDM GERD (gastroesophageal reflux disease) per records Hyperlipidemia Hypertension 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 without issue Lung cancer hx (chemo 10/2016, radiation 10/2016) Migraine hx Osteoarthritis Peripheral neuropathy Pneumothorax hx Surgical History History of anesthesia reaction Slow to wake History of arthroscopy LEFT SHOULDER-03/2019 History of bronchoscopy History of foot surgery plantar fasciitis surgery -LEFT FOOT History of lobectomy of lung RML, RLL 10/2017- residual right sided neuralgia status post surgery History of lobectomy of lung RML/RLL ?10/2016- RESIDUAL RIGHT SIDED NEURALGIA S/P SURGERY PER RECORDS History of repair of left rotator cuff (~03/2019) History of tonsillectomy History of tooth extraction 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 s/p T7, 8, 9 intercostal RFA 12/10/17= MAC sedation at [facility] Nausea and vomiting after administration of anesthetic agent Family History Father Family history of diabetes mellitus Coronary heart disease Sister Family history of diabetes mellitus Mother Breast cancer Daughter No problems noted. 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 Beliefs That Will Affect Care: None marital status: Current Living Situation: Spouse Feels Safe at Home: Yes Smoking Status: Unknown if ever smoked Hx Alcohol Use: No Hx Substance Use: No Review of Systems See HPI for pertinent positives & negatives. and A total of 10 systems reviewed and were otherwise negative Allergies Allergy/AdvReac Type Severity Reaction Status Date / Time varenicline AdvReac Unknown WEIRD Verified 08/29/19 15:57 DREAMS Home Medications Home Medications Medication Instructions Recorded Confirmed Type aspirin 325 mg tablet 0 mg PO QAM 12/10/17 08/29/19 History lisinopril 10 mg PO QAM 06/04/19 08/29/19 History insulin lispro 100 unit/mL 35 units SQ TID #10 ml 07/03/19 08/29/19 Rx subcutaneous solution gabapentin 300 mg PO TID 08/29/19 08/29/19 History insulin glargine [Lantus U-100 70 units SQ HS 08/29/19 08/29/19 History Insulin] Patient History Medical History Chronic obstructive pulmonary disease Diabetes mellitus, type 2 IDDM GERD (gastroesophageal reflux disease) per records Hyperlipidemia Hypertension 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 without issue Lung cancer hx (chemo 10/2016, radiation 10/2016) Migraine hx Osteoarthritis Peripheral neuropathy Pneumothorax hx Surgical History History of anesthesia reaction Slow to wake History of arthroscopy LEFT SHOULDER-03/2019 History of bronchoscopy History of foot surgery plantar fasciitis surgery -LEFT FOOT History of lobectomy of lung RML, RLL 10/2017- residual right sided neuralgia status post surgery History of lobectomy of lung RML/RLL ?10/2016- RESIDUAL RIGHT SIDED NEURALGIA S/P SURGERY PER RECORDS History of repair of left rotator cuff (~03/2019) History of tonsillectomy History of tooth extraction 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 s/p T7, 8, 9 intercostal RFA 12/10/17= MAC sedation at [facility] Nausea and vomiting after administration of anesthetic agent Family History Father Family history of diabetes mellitus Coronary heart disease Sister Family history of diabetes mellitus Mother Breast cancer Daughter No problems noted. 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 Beliefs That Will Affect Care: None marital status: Current Living Situation: Spouse Feels Safe at Home: Yes Smoking Status: Unknown if ever smoked Hx Alcohol Use: No Hx Substance Use: No Review of Systems Review of Systems: All systems reviewed & are unremarkable except as noted in HPI & below Constitutional: as per Subjective / HPI Eyes: as per Subjective / HPI Ear, Nose, Mouth, Throat: as per Subjective / HPI Respiratory: as per Subjective / HPI Cardiovascular: as per Subjective / HPI Gastrointestinal: as per Subjective / HPI Genitourinary: + as per Subjective / HPI and + problem reported (TALIA) Musculoskeletal: as per Subjective / HPI Integumentary: as per Subjective / HPI Neurologic: as per Subjective / HPI Psychiatric: as per Subjective / HPI Endocrine: as per Subjective / HPI DM Hematologic / Lymphatic: as per Subjective / HPI Allergy / Immunological: as per Subjective / HPI Physical Exam Constitutional: well developed, well nourished and + ill appearing sleepy Eyes: PERRL, conjunctivae normal, anicteric sclerae ENMT: external ear and nose normal, oropharynx normal Neck: trachea midline, no thyromegaly Respiratory: normal respiratory effort, lungs clear to auscultation Cardiovascular: RRR, no murmur, no edema Rate/Rhythm: regular rate and regular rhythm Gastrointestinal (Abdomen): normal bowel sounds, soft, nontender, no hepatosplenomegaly Percussion/Palpation: abdomen soft no distend, BS +, Musculoskeletal: no cyanosis or clubbing, extremities motor strength 5/5 Skin: no rashes, warm and dry Neurologic: sleepy Psychiatric: call pt's name pt open his eyes, Results & Data Vital Signs (Past 12 Hours) Vital Signs Temp Pulse Pulse Resp BP BP Pulse Ox 08/29/19 15:40 110 H 28 H 113/54 L 96 08/29/19 14:45 109 H 35 H 91/49 L 95 08/29/19 14:30 112 H 29 H 106/56 L 95 08/29/19 14:27 114 H 28 H 107/61 96 08/29/19 14:00 120 H 27 H 115/67 96 08/29/19 13:56 126 H 36 H 111/62 97 08/29/19 13:20 122 H 31 H 97/57 L 97 08/29/19 13:10 124 H 35 H 91/57 L 96 08/29/19 12:30 126 H 32 H 89/58 L 98 08/29/19 12:29 127 H 34 H 109/57 L 96 08/29/19 12:10 36.7 C 127 H 32 H 97/59 L 93 Laboratory Results Abnormal lab results 08/29/19 08/29/19 08/29/19 Range/Units 11:59 11:59 12:03 WBC 27.67 H (4.8-10.8) K/uL MCHC 31.6 L (32-36) g/dL Plt Count 418 H (130-400) K/uL Immature Gran # (Auto) 0.21 H (0.00-0.02) K/uL Neut # (Auto) 23.37 H (1.4-6.5) K/uL Lymph # (Auto) 0.59 L (1.2-3.4) K/uL Blair # (Auto) 3.46 H (0.11-0.59) K/uL ABG pH (7.35-7.45) ABG pCO2 (35-46) mmHg ABG HCO3 (19-24) mmol/L ABG O2 Saturation (90-95) % ABG Base Excess (-9-1.8) mEq/L POC Sodium 122 L (135-144) mmol/L Sodium 124 L (136-145) mmol/L POC Potassium 5.2 H (3.3-5.0) mmol/L Potassium 5.2 H (3.5-5.1) mmol/L POC Chloride 92 L (101-112) mmol/L Chloride 86 L (98-107) mmol/L Carbon Dioxide 10 L (21-32) mmol/L POC Total CO2 10 L (24-31) mmol/L Anion Gap 28.0 H (3-11) POC Anion Gap 27.0 H (16-25) mmol/L POC BUN 62 H (7-18) mg/dl BUN 68 H (7-18) mg/dl Creatinine 4.12 H (0.6-1.4) mg/dl POC Creatinine 3.3 H (0.6-1.3) mg/dl Glucose 1585 H* (70-99) mg/dl POC Glucose (70-99) mg/dl POC Glucose (other) > 700 H* (70-99) mg/dl Lactate (0.4-2.0) mmol/L Phosphorus 8.2 H (2.5-4.9) mg/dl Magnesium 3.6 H (1.8-2.4) mg/dl Alkaline Phosphatase 147 H (45-117) U/L Beta-Hydroxybutyric Acd 107.96 H (0.2-2.81) mg/dl Urine Appearance (Clear) Urine Glucose (UA) (Negative) Urine Ketones (Negative) Urine Blood (Negative) U Epithel Cells (Auto) (0-5) /lpf 08/29/19 08/29/19 08/29/19 Range/Units 12:20 13:36 14:20 WBC (4.8-10.8) K/uL MCHC (32-36) g/dL Plt Count (130-400) K/uL Immature Gran # (Auto) (0.00-0.02) K/uL Neut # (Auto) (1.4-6.5) K/uL Lymph # (Auto) (1.2-3.4) K/uL Blair # (Auto) (0.11-0.59) K/uL ABG pH 7.04 L* (7.35-7.45) ABG pCO2 27 L (35-46) mmHg ABG HCO3 7 L (19-24) mmol/L ABG O2 Saturation 95.1 H (90-95) % ABG Base Excess -22.4 L (-9-1.8) mEq/L POC Sodium (135-144) mmol/L Sodium (136-145) mmol/L POC Potassium (3.3-5.0) mmol/L Potassium (3.5-5.1) mmol/L POC Chloride (101-112) mmol/L Chloride (98-107) mmol/L Carbon Dioxide (21-32) mmol/L POC Total CO2 (24-31) mmol/L Anion Gap (3-11) POC Anion Gap (16-25) mmol/L POC BUN (7-18) mg/dl BUN (7-18) mg/dl Creatinine (0.6-1.4) mg/dl POC Creatinine (0.6-1.3) mg/dl Glucose (70-99) mg/dl POC Glucose (70-99) mg/dl POC Glucose (other) (70-99) mg/dl Lactate 2.8 H* (0.4-2.0) mmol/L Phosphorus (2.5-4.9) mg/dl Magnesium (1.8-2.4) mg/dl Alkaline Phosphatase (45-117) U/L Beta-Hydroxybutyric Acd (0.2-2.81) mg/dl Urine Appearance Cloudy A (Clear) Urine Glucose (UA) 3+ H (Negative) Urine Ketones 1+ H (Negative) Urine Blood 3+ H (Negative) U Epithel Cells (Auto) 10-20 H (0-5) /lpf 08/29/19 08/29/19 Range/Units 14:20 15:38 WBC (4.8-10.8) K/uL MCHC (32-36) g/dL Plt Count (130-400) K/uL Immature Gran # (Auto) (0.00-0.02) K/uL Neut # (Auto) (1.4-6.5) K/uL Lymph # (Auto) (1.2-3.4) K/uL Blair # (Auto) (0.11-0.59) K/uL ABG pH (7.35-7.45) ABG pCO2 (35-46) mmHg ABG HCO3 (19-24) mmol/L ABG O2 Saturation (90-95) % ABG Base Excess (-9-1.8) mEq/L POC Sodium (135-144) mmol/L Sodium 128 L (136-145) mmol/L POC Potassium (3.3-5.0) mmol/L Potassium (3.5-5.1) mmol/L POC Chloride (101-112) mmol/L Chloride 92 L (98-107) mmol/L Carbon Dioxide 10 L (21-32) mmol/L POC Total CO2 (24-31) mmol/L Anion Gap 26.0 H (3-11) POC Anion Gap (16-25) mmol/L POC BUN (7-18) mg/dl BUN 67 H (7-18) mg/dl Creatinine 4.15 H (0.6-1.4) mg/dl POC Creatinine (0.6-1.3) mg/dl Glucose 1418 H* (70-99) mg/dl POC Glucose > 600 H* (70-99) mg/dl POC Glucose (other) (70-99) mg/dl Lactate (0.4-2.0) mmol/L Phosphorus (2.5-4.9) mg/dl Magnesium (1.8-2.4) mg/dl Alkaline Phosphatase (45-117) U/L Beta-Hydroxybutyric Acd 102.88 H (0.2-2.81) mg/dl Urine Appearance (Clear) Urine Glucose (UA) (Negative) Urine Ketones (Negative) Urine Blood (Negative) U Epithel Cells (Auto) (0-5) /lpf Diagnostic Findings CT SCAN OF THE ABDOMEN AND PELVIS WITHOUT IV CONTRAST CLINICAL HISTORY: Generalized abdominal pain. Recent colonoscopy. History of lung cancer. COMPARISON STUDY: Generalized abdominal pain. Recent colonoscopy. History of lung cancer.. TECHNIQUE: CT scan of the abdomen and pelvis is performed from the lung bases to the proximal femora. Images are reviewed in the axial, sagittal, and coronal planes. IV contrast was not administered for this examination. Note that the examination is suboptimal without IV contrast. There is motion artifact, as well as by streak artifact from the arms which could not be elevated above the abdomen. A dose lowering technique was utilized adhering to the principles of ALARA. FINDINGS: Lung bases: The heart is mildly enlarged and without pericardial effusion. The coronary arteries are densely calcified. There is diminished attenuation of the cardiac blood pool as compared to the myocardium suggesting anemia. Emphysematous change is noted. Postoperative change and volume loss of the right lung base is consistent with previous surgical resection. There is a small chronic appearing right pleural collection with overlying pleural thickening. This is likely related to previous surgery. Scarring/atelectasis is noted at both lung bases. Patchy airspace consolidation is identified in the lingula and at the left lung base. This is new from 08/27/2019. A small to moderate hiatal hernia is noted. Liver: The unenhanced liver is normal in size and contour. The liver demonstrates diffusely diminished attenuation consistent with hepatic steatosis. There is no intrahepatic biliary ductal dilatation. Gallbladder: Unremarkable. Spleen: Normal in size and attenuation. Pancreas: The unenhanced pancreas is atrophic and grossly unremarkable. Adrenal glands: Mild nodularity of the left adrenal gland is unchanged from 2017. The right adrenal gland is normal in appearance. Kidneys: The unenhanced kidneys are normal in size and without hydronephrosis. A tiny nonobstructing calculus is seen in each kidney. There is no evidence of contour deforming renal mass lesion. Abdominal vasculature: The abdominal aorta is normal in course and caliber noting advanced atherosclerotic calcification. Stomach and bowel: The stomach is distended and fluid-filled, as are the proximal small bowel loops. The proximal jejunum measures up to 3.8 cm in diameter. The distal small bowel and colon are decompressed. A transition point is identified in the left anterior abdomen on image #[id number], and the appearance is consistent with a small bowel obstruction. Disturbances significant change from 08/27/2019. No pneumatosis intestinalis or portal venous gas is seen. No focally thick walled bowel loops are identified. There is moderate sigmoid div erticulosis without CT evidence of acute diverticulitis. The appendix is normal as visualized. Peritoneum: There is no intraperitoneal free air or abdominal ascites. There is a fat-containing umbilical hernia. Lymphadenopathy: None. Pelvic viscera: The prostate gland is enlarged and heterogeneous noting median lobe hypertrophy. The bladder wall partially decompressed and a Zambrano catheter. Foci of intraluminal gas are likely related to instrumentation. Surgical clips are noted along the spermatic cord bilaterally. Skeletal structures: The skeletal structures are osteopenic. Minimal spondylotic changes noted. No lytic or blastic lesions are seen. IMPRESSION: 1. Findings are consistent with a proximal small bowel obstruction as detailed above. This represents a significant change from 08/27/2019 and may be on the basis of adhesions. Surgical consultation is advised. 2. No intraperitoneal free air is seen. There are no focal thick walled bowel identified, no pneumatosis intestinalis, no portal venous gas. 3. Patchy airspace consolidation is seen in the lingula and left lower lobe. The appearance is typical for pneumonia/aspiration pneumonitis and clinical correlation will be required. This is also new from 08/27/2019. 4. Cardiomegaly, emphysema, and postoperative change from right-sided pulmonary resection. 5. Bilateral nephrolithiasis. 6. Additional findings as above.
[2019-08-29] MEDS ORDERED: NORMOSOL-R 1,000 ML IV SCH (16:34)
[2019-08-29] MEDS ORDERED: PENDING D5 1/2NS+20mEq KCL IVF SCH (16:34)
[2019-08-29] MEDS ORDERED: ICU PROTOCOL FOR HYPERGLYCEMIA PRN (16:34)
[2019-08-29] MEDS ORDERED: NORMOSOL-R 2,000 ML IV ONE (16:43)
--- NOTE | 2019-08-29 16:46 | Critical Care Consultation ---
Date of Consultation August 29, 2019 Assessment & Plan (1) DKA (diabetic ketoacidoses): Impression: 63-year-old male with severe DKA due to medication noncompliance, dehydration, and possible bowel obstruction. He also has a markedly elevated leukocytosis possibly related to small bowel obstruction versus aspiration pneumonia. DKA complicated by multiple electrolyte abnormalities, metabolic encephalopathy, and acute renal failure. Recommendations: 1. DKA: Patient received approximately 3 L of crystalloid in the emergency room. Given his markedly elevated glucose at over thousand, I suspect he is profoundly volume depleted and will likely require 2-3 times that much crystalloid to restore effective circulating volume. We will bolus with an additional 3 to 4 L of crystalloid now and continue IV fluids per DKA protocol. Insulin has been initiated and will be continued until gap closes and the patient's metabolic processes are resolved. Serial basic metabolic panels. Will need aggressive electrolyte placement as I suspect he is actually total body depleted on multiple electrolytes but high currently due to his acidosis and metabolic disarray. No need for serial venous blood gases at this point time. Will trend beta hydroxybutyrate. We will add glucose to his IV fluids once his blood glucose drops below 200 and will keep insulin drip in place until anion gap is closed, the patient is tolerating p.o., and unable to get subcutaneous insulin on board 2. Small bowel obstruction: We will check KUB. Appreciate surgical assistance. NG tube to low intermittent suction. Keep n.p.o. This may complicate treating the patient's DKA and transitioning the patient to insulin if he remains n.p.o. No indication for repeat imaging currently. 3. Leukocytosis: Unclear etiology. Multiple potential sources including aspiration pneumonia and intra-abdominal process. Has been initiated on Zosyn. Pharmacy has been asked to assist with dosing medication given his acute renal insufficiency. We will check a pro calcitonin. 4. Acute renal insufficiency: I suspect this is prerenal. We will continue to trend with aggressive fluid hydration. Urine output may not be a good marker as he is bound to have a significant osmotic diuresis due to his markedly elevated glucose. The patient presented hyponatremic which is likely pseudohyponatremia secondary to the markedly elevated glucose. He also presented hyperkalemic but with insulin this is already decreased down. He does have an elevated phosphate but again I suspect this will likely correct with christianity of acid-base status and effective circulating volume. 5. Lactic acidosis: Suspect this is related to hypoperfusion and will trend as the patient's electrolytes are repleted. 6. Possible aspiration pneumonia: The findings on the CT scan are not particularly impressive. Nevertheless he should be adequately covered with Zosyn. Will follow clinically. 7. Metabolic encephalopathy: Related to acid-base derangements and metabolic disarray. Initial CT the head unremarkable. Anticipate that his mental status should continue to improve will continue to follow clinically. 8. DVT and GI prophylaxis will be initiated. Patient is critically ill at this point time with significant possibility of clinical deterioration. Will be followed closely in the ICU for now (2) Small bowel obstruction: (3) TALIA (acute kidney injury): (4) Leukocytosis: History of Present Illness Attending Physician: Alma Arriaga MD History of Present Illness Asked by hospitalist to assist in critical care management of this patient with severe DKA and acute renal failure. History is obtained from discussion with the hospitalist and review of the electronic medical record. The patient is metabolically encephalopathic and unable to provide significant history. This 63-year-old male with a history of diabetes COPD and non-small cell lung cancer presented to the emergency room with nausea and vomiting schedule in the outpatient setting for colonoscopy. He was having loose stools. It is unclear if he was compliant with his insulin, but the admission notes say that he sto pped all of his insulin. He was weak and lethargic today and called EMS to bring him to the hospital. He was noted to be profoundly hyperglycemic and tachycardic. Blood gas showed metabolic acidosis. Beta hydroxybutyrate was markedly elevated. He was administered 2 L of crystalloid and started on an insulin infusion. CT of the abdomen and pelvis was performed which showed a proximal small bowel obstruction but no mechanical disruption and no evidence of ischemic bowel. He initially received Rocephin but this was expanded to Zosyn due to concern about possible aspiration pneumonia. Surgical consultation was obtained and recommended conservative management with NG tube. I assessed the patient immediately on arrival to the ICU. He is lethargic and in restraints but does arouse to verbal stimulus and open his eyes. He offers no complaints. He remains tachycardic. Zambrano catheter has been placed. Allergies Allergy/AdvReac Type Severity Reaction Status Date / Time varenicline AdvReac Unknown WEIRD Verified 08/29/19 15:57 DREAMS Home Medications Home Medications Medication Instructions Recorded Confirmed Type aspirin 325 mg tablet 0 mg PO QAM 12/10/17 08/29/19 History lisinopril 10 mg PO QAM 06/04/19 08/29/19 History insulin lispro 100 unit/mL 35 units SQ TID #10 ml 07/03/19 08/29/19 Rx subcutaneous solution gabapentin 300 mg PO TID 08/29/19 08/29/19 History insulin glargine [Lantus U-100 70 units SQ HS 08/29/19 08/29/19 History Insulin] Patient History Medical History Chronic obstructive pulmonary disease Diabetes mellitus, type 2 IDDM GERD (gastroesophageal reflux disease) per records Hyperlipidemia Hypertension 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- MAC sedation at [facility] without issue Lung cancer hx (chemo 10/2016, radiation 10/2016) Migraine hx Osteoarthritis Peripheral neuropathy Pneumothorax hx Surgical History History of anesthesia reaction Slow to wake History of arthroscopy LEFT SHOULDER-03/2019 History of bronchoscopy History of foot surgery plantar fasciitis surgery -LEFT FOOT History of lobectomy of lung RML, RLL 10/2017- residual right sided neuralgia status post surgery History of lobectomy of lung RML/RLL ?10/2016- RESIDUAL RIGHT SIDED NEURALGIA S/P SURGERY PER RECORDS History of repair of left rotator cuff (~03/2019) History of tonsillectomy History of tooth extraction 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 Brother Coronary heart disease Social History Preferred Language: Syrian Communication Ability: Effective Visual Impairment: No Limitations Department Helper Required: No Beliefs That Will Affect Care: None marital status: Current Living Situation: Spouse Feels Safe at Home: Yes Smoking Status: Unknown if ever smoked Hx Alcohol Use: No Hx Substance Use: No Review of Systems Review of Systems: Unobtainable due to cognitive status and Unobtainable due to reduced consciousness Physical Exam Constitutional: + ill appearing, average body habitus and + lethargic Eyes: + anicteric sclerae ENMT: Mouth: + oral mucosal abnormality (very dry) Neck: trachea midline, no thyromegaly Respiratory: + tachypneic (mild) Auscultation: + rhonchi (bilateral); no wheezes Cardiovascular: Rate/Rhythm: regular rhythm and + tachycardic Heart Sounds: no murmur Extremities: no edema Chest (Breasts): Chest: normal inspection of chest Gastrointestinal (Abdomen): Inspection/Auscultation: + abdomen distended (mild) and + hypoactive bowel sounds Percussion/Palpation: abdomen soft (Softly distended); abdomen nontender (but patient is very lethargic) Musculoskeletal: Extremities: extremities normal to inspection; no cyanosis and no clubbing Skin: no rashes, warm and dry Neurologic: moves all extremities (Voluntarily moves extremities but does not follow commands) and + confused; + not awake Motor/Sensory: no tremor Genitourinary: Zambrano catheter in place with clear yellow urine Lymphatic: no lymphedema Results & Data Results & Data ([facility]) Vital Signs (Past 12 Hours) Vital Signs Temp Pulse Pulse Resp BP BP Pulse Ox 08/29/19 15:55 107 H 28 H 99/62 L 95 08/29/19 15:40 110 H 28 H 113/54 L 96 08/29/19 14:45 109 H 35 H 91/49 L 95 08/29/19 14:30 112 H 29 H 106/56 L 95 08/29/19 14:27 114 H 28 H 107/61 96 08/29/19 14:00 120 H 27 H 115/67 96 08/29/19 13:56 126 H 36 H 111/62 97 08/29/19 13:20 122 H 31 H 97/57 L 97 08/29/19 13:10 124 H 35 H 91/57 L 96 08/29/19 12:30 126 H 32 H 89/58 L 98 08/29/19 12:29 127 H 34 H 109/57 L 96 08/29/19 12:10 36.7 C 127 H 32 H 97/59 L 93 Laboratory Results 08/29/19 11:59 08/29/19 14:20 08/29/19 13:36 ABG pH 7.04 L* ABG pCO2 27 L ABG pO2 92 ABG HCO3 7 L ABG O2 Saturation 95.1 H ABG Base Excess -22.4 L Lactate elevated 2.8 Calcium 8.5 Phosphorus 8.2 which is high Magnesium 3.6 which is high Liver function tests unremarkable with the exception of an elevated alk phos at 147 Beta hydroxybutyrate elevated at [address] independently reviewed with no significant pathology. CT of the abdomen and pelvis demonstrated a fluid-filled stomach with dilated proximal small bowel loops with a transition point in the left anterior abdomen consistent with small bowel obstruction new compared to prior CT scan from 2 days ago. Fat-containing umbilical hernia is present. There are some small patchy pulmonary infiltrates most prominent within the lingula and the left lower lobe. Patient is status post right lobectomy Coding Level of Care Code Critical Care 1st 30-74 mins Diagnoses DKA (diabetic ketoacidoses) E11.10 Small bowel obstruction K56.609 TALIA (acute kidney injury) N17.9 Leukocytosis D72.829 Time Spent (min) 45 Comment 45 minutes critical care time evaluating managing and stabilizing patient
[2019-08-29] MEDS: INSULIN ASPART 100 UNITS/ML 3 ML PEN SC SCH ×2 (16:59→21:26)
[2019-08-29] MEDS ORDERED: PHARMACY GLYCEMIC MGMT CONSULT PRN (17:07)
[2019-08-29 17:33] LABS: Magnesium 3.3 mg/dl (1.8-2.4)
--- NOTE | 2019-08-29 17:37 | XRay Report ---
KUB CLINICAL HISTORY: Enteric tube placement. FINDINGS: An AP, portable, supine radiograph of the lower chest and upper abdomen is correlated with abdominal CT performed the same day 08/29/2019. An enteric tube projects below the diaphragm over the p roximal stomach. There is evidence of persistent small bowel obstruction. No evidence of intraperiton eal free air is seen on this supine image. The heart is enlarged. Airspace consolidation is noted at the left lung base. The bony structures appear intact. IMPRESSION: 1. An enteric tube projects below the diaphragm over the proximal stomach. 2. Persistent small bowel obstruction. Electronically signed by: Alec Rogers M.D. 08/29/2019 5:35 PM
[2019-08-29] MEDS: PANTOprazole 40 MG in SYRINGE 0 ML IV SCH (17:50)
[2019-08-29 17:56] LABS: Phosphorus 6.5 mg/dl (2.5-4.9)
[2019-08-29 18:59] LABS: Beta-Hydroxybutyrate 73.6 mg/dl (0.2-2.81)
[2019-08-29 19:41] LABS: Base Excess VBG -12.2 mEq/L; Oxygen Saturation VBG 69.1 %; pH VBG 7.21 (7.36-7.41)
--- NOTE | 2019-08-29 19:55 | Surgery Progress Note ---
Date of Service re-check pt, pt is still sleepy, i call pt's name pt open his eyes, check abdomen, pt said no pain, recheck lactic acid is 4 from 2.8, August 29, 2019 Assessment & Plan (1) Acute respiratory failure with hypoxia: pt is a 63 year-old male who was admitted to hospital for nausea, vomiting, abdominal pain, IMP: SBO, dehydration, acute renal failure, Plan, no emergent surgical indication now, I agree with conservation treatment, IV fluid, antibiotic, NG tube, repeat labs in am, will F/U, D/W hospitalist, pt's . 08/29/2019 7:50PM correct low NA, high blood glucose, NG tube put 1000ml, re-check lactic acid 6 hours, please call with increase lactic acid or pt's condition is getting worse, , D/W ICU attending, repeat labs and KUB in am, will F/U (2) Dehydration: (3) Hyperkalemia: (4) Pneumonitis: (5) Small bowel obstruction: Review of Systems Constitutional: as per Subjective / HPI Eyes: as per Subjective / HPI Ear, Nose, Mouth, Throat: as per Subjective / HPI Respiratory: as per Subjective / HPI Cardiovascular: as per Subjective / HPI Gastrointestinal: as per Subjective / HPI Genitourinary: + as per Subjective / HPI and + problem reported (TALIA) Musculoskeletal: as per Subjective / HPI Integumentary: as per Subjective / HPI Neurologic: as per Subjective / HPI Psychiatric: as per Subjective / HPI Endocrine: as per Subjective / HPI DM Hematologic / Lymphatic: as per Subjective / HPI Allergy / Immunological: as per Subjective / HPI Physical Exam Constitutional: well developed, well nourished and + ill appearing Eyes: PERRL, conjunctivae normal, anicteric sclerae ENMT: external ear and nose normal, oropharynx normal Neck: trachea midline, no thyromegaly Respiratory: normal respiratory effort, lungs clear to auscultation Cardiovascular: RRR, no murmur, no edema Rate/Rhythm: regular rate and regular rhythm Gastrointestinal (Abdomen): normal bowel sounds, soft, nontender, no hepatosplenomegaly Percussion/Palpation: abdomen soft no distend compare 4 hours ago, soft, NT, BS + Musculoskeletal: no cyanosis or clubbing, extremities motor strength 5/5 Skin: no rashes, warm and dry Results & Data Vital Signs (Past 12 Hours) Vital Signs Temp Pulse Pulse Resp BP BP Pulse Ox 08/29/19 18:55 36.2 C L 109 H 22 105/57 L 96 08/29/19 18:25 105 H 20 103/59 L 96 08/29/19 17:55 36 C L 104 H 21 102/58 L 96 08/29/19 17:41 36 C L 08/29/19 17:30 36.2 C L 08/29/19 17:25 104 H 23 87/51 L 96 08/29/19 16:55 103 H 26 H 85/44 L 96 08/29/19 16:22 35.7 C L 106 H 27 H 93/57 L 95 08/29/19 15:55 107 H 28 H 99/62 L 95 08/29/19 15:40 110 H 28 H 113/54 L 96 08/29/19 14:45 109 H 35 H 91/49 L 95 08/29/19 14:30 112 H 29 H 106/56 L 95 08/29/19 14:27 114 H 28 H 107/61 96 08/29/19 14:00 120 H 27 H 115/67 96 08/29/19 13:56 126 H 36 H 111/62 97 08/29/19 13:20 122 H 31 H 97/57 L 97 08/29/19 13:10 124 H 35 H 91/57 L 96 08/29/19 12:30 126 H 32 H 89/58 L 98 08/29/19 12:29 127 H 34 H 109/57 L 96 08/29/19 12:10 36.7 C 127 H 32 H 97/59 L 93
--- NOTE | 2019-08-29 20:01 | Communication Note ---
Date of Service: August 29, 2019 Due to patient's up trended lactate from 2 to 4, surgeon was paged to the bedside for reevaluation given patient's abdominal distention with tenderness, and small bowel obstruction. We discussed findings and plan at the bedside. Currently there is no change in the patient's physical exam from when he was evaluated by surgery in the ED, and abdomen is distended but remains soft, and there is no concern at this time for surgical abdomen. We will continue to follow closely and continue to trend lactate. If lactate continues to trend upward, would warrant additional concern. We will continue to manage DKA as planned. I have personally spent 25 minutes of critical care time in the direct management of this patient. This is a life/limb threatening event. This includes time spent evaluating patient, direct bedside care, chart review, placing orders, interpretation of diagnostic studies, discussion with consultants, patient, and family members, as well as other required patient management activities. This time is exclusive of all separately billable procedures, and teaching time and separate from and in addition to any other critical care service time. Thank you for allowing us to participate in the care of this patient. Please refer to my attending physician's documentation for any further recommendations. Coding Level of Care Code None
[2019-08-29 20:06] LABS: BUN Creatinine Ratio 18.1 (10-20); Calcium 8.5 mg/dl (8.5-10.1); Creatinine Clr Calc Pharmacy 22.3 ml/min; Est GFR (African American) 18.6; Est GFR (Non-African American) 16.1; Phosphorus 3.7 mg/dl (2.5-4.9); Potassium 3.7 mmol/L (3.5-5.1)
[2019-08-29] MEDS: PIPERACILLIN/TAZOBACTAM 4.5 GM in DEXTROSE 5% 100 ML IV SCH (20:49)
[2019-08-29] MEDS ORDERED: SODIUM CHLOR 0.45% + 20MEQ KCL 20 MEQ/1,000 ML BAG IV SCH (21:00)
[2019-08-29] MEDS: PENDING 1/2NSS+20mEq KCL IVF SCH ×2 (21:23→21:24)
--- NOTE | 2019-08-29 21:47 | Pharmacy Report ---
Glycemic Control Consultation - Date of Service August 29, 2019 - Scope Scope: Glycemic Pharmacist consulted for glycemic control and to write orders per [facility] inpatient glycemic control protocol. - Objective Weight: 89.7 kg Accuchecks BSG (last 24hrs): 08/29/19 08/29/19 08/29/19 11:59 12:03 14:20 Glucose 1585 H* 1418 H* POC Glucose POC Glucose (other) > 700 H* 08/29/19 08/29/19 08/29/19 15:38 16:37 16:50 Glucose 1251 H* POC Glucose > 600 H* > 600 H* POC Glucose (other) 08/29/19 08/29/19 08/29/19 17:55 18:02 19:21 Glucose 1054 H* 945 H* POC Glucose > 600 H* POC Glucose (other) 08/29/19 21:12 Glucose POC Glucose > 600 H* POC Glucose (other) Laboratory Data (last 24hrs): 08/29/19 08/29/19 08/29/19 11:59 14:20 16:50 Potassium 5.2 H 4.4 D Carbon Dioxide 10 L 10 L Anion Gap 28.0 H 26.0 H Creatinine 4.12 H 4.15 H Est Cr Clr Drug Dosing 20.1 20.0 Beta-Hydroxybutyric Acd 107.96 H 102.88 H Cancelled 08/29/19 08/29/19 18:02 19:21 Potassium 3.7 D Carbon Dioxide 15 L Anion Gap 18.0 H Creatinine 3.72 H D Est Cr Clr Drug Dosing 22.3 Beta-Hydroxybutyric Acd 73.60 H Cancelled - Recent Pertinent Medications Outpatient Anti-diabetic Regimen: * Lantus 70 units qHS * Humalog 35 units TID * A1c = 6.8 % 06/26/19 The patient is currently receiving: * An insulin drip per DKA protocol Risk Factors for Insulin Resistance: * Infection: * Diet: NPO - Assessment & Plan Assessment & Plan: ASSESSMENT: * 63 y/o male with N/V, weakness and hyperglycemia, admitted with severe DKA - BSGs over 1000 mg/dL. Patient with medication noncompliance, dehydration and possible bowel obstruction. Insulin drip initiated in the ED, as per DKA protocol. Normosol fluids initiated and have since been switched to 1/2 NS + 20 K since K below upper limit of normal. Will incorporate dextrose in IV fluids once BSG falls to 200 mg/dL. PLAN FOR INPATIENT GLYCEMIC CONTROL: * Continue IV insulin infusion per DKA protocol * Goal Range 250 - 350 mg/dl (increased from standard range due to profoundly elevated BSGs) * In the critical care setting, continuous IV insulin infusion has been shown to be the best method for achieving glycemic targets. * Please note that the plan above was derived based on current level of insulin resistance and hospital stress. These recommendations are appropriate for inpatient admission only. Plan of care upon discharge will need to be reassessed to avoid potential outpatient hypo/hyperglycemia. Thank you.
[2019-08-29] MEDS: HEPARIN SOD 5,000 UNIT/0.5 ML VIAL SQ SCH (22:02)
[2019-08-29 22:08] LABS: Beta-Hydroxybutyrate 34.7 mg/dl (0.2-2.81)
--- NOTE | 2019-08-29 23:04 | Electrocardiogram Report ---
Test Reason : Blood Pressure : / mmHG Vent. Rate : 126 BPM Atrial Rate : 126 BPM P-R Int : 168 ms QRS Dur : 084 ms QT Int : 310 ms P-R-T Axes : 060 033 027 degrees QTc Int : 448 ms Sinus tachycardia Low voltage QRS Borderline ECG When compared with ECG of 16-MAR-2019 14:03, Vent. rate has increased BY 52 BPM Confirmed by Rahul Sánchez ([id number]) on 08/29/2019 11:04:06 PM Referred By: Confirmed By:Rahul Sánchez
[2019-08-29 23:47] LABS: BUN Creatinine Ratio 17.6 (10-20); Calcium 8.6 mg/dl (8.5-10.1); Est GFR (African American) 20.3; Est GFR (Non-African American) 17.5; Potassium 3.6 mmol/L (3.5-5.1)
[2019-08-30 00:03] LABS: Beta-Hydroxybutyrate 22.91 mg/dl (0.2-2.81)
[2019-08-30 00:29] LABS: Magnesium 2.7 mg/dl (1.8-2.4); Phosphorus 2.9 mg/dl (2.5-4.9)
[2019-08-30] MEDS ORDERED: POTASSIUM CHLORIDE 40 MEQ in SODIUM CHLORIDE 0.45 % 1,000 ML IV SCH (00:30)
[2019-08-30] MEDS ORDERED: POTASSIUM CHLORIDE / WTR 10 MEQ/100 ML PLCT IV ONE (01:47)
[2019-08-30] MEDS ORDERED: FUROSEMIDE 40 MG in SYRINGE 0 ML IV ONE (02:15)
[2019-08-30] MEDS: POTASSIUM CHLORIDE / WTR 10 MEQ/100 ML PLCT IV SCH ×2 (03:21→04:39)
[2019-08-30] MEDS ORDERED: POTASSIUM CHLORIDE 40 MEQ in DEXTROSE 10% 1,000 ML IV SCH (03:30)
[2019-08-30 03:59] LABS: BUN Creatinine Ratio 17.1 (10-20); Bilirubin Direct 0.1 mg/dl (0-0.2); Bilirubin,Total 0.4 mg/dl (0.2-1); Calcium 8.2 mg/dl (8.5-10.1); Creatinine Clr Calc Pharmacy 23.5 ml/min; Est GFR (African American) 19.8; Est GFR (Non-African American) 17.1; Magnesium 2.6 mg/dl (1.8-2.4); Potassium 3.7 mmol/L (3.5-5.1); Total Protein 6.5 gm/dl (6.4-8.2)
[2019-08-30 04:00] LABS: Phosphorus 5.3 mg/dl (2.5-4.9)
[2019-08-30 04:12] LABS: Beta-Hydroxybutyrate 1.59 mg/dl (0.2-2.81)
[2019-08-30 04:25] LABS: Basophils # (auto) 0.01 K/uL (0-0.2); Basophils % (auto) 0.1 %; Hematocrit (blood only) 43.7 % (42-52); Hemoglobin 14.6 g/dL (14.0-18.0); Immature Granulocytes # (auto) 0.07 K/uL (0.00-0.02); Immature Granulocytes % (auto) 0.5 %; Mean Corpuscular Hemoglobin 28.5 pg (25-34); Mean Corpuscular Hgb Conc 33.4 g/dL (32-36); Mean Corpuscular Volume 85.2 fL (80-100); Mean Platelet Volume 9.5 fL (7.4-10.4); Monocytes # (auto) 1.66 K/uL (0.11-0.59); Monocytes % (auto) 11.9 %; Neutrophils # (auto) 11.53 K/uL (1.4-6.5); Neutrophils % (auto) 82.5 %; Platelet Count 250 K/uL (130-400); RDW Coefficient of Variation 14.4 % (11.5-14.5); Red Blood Count 5.13 M/uL (4.7-6.1); White Blood Count 13.97 K/uL (4.8-10.8)
[2019-08-30] MEDS ORDERED: INSULIN GLARGINE SOLOSTAR 100 UNITS/ML 3 ML PEN SC ONE (04:30)
[2019-08-30 04:31] LABS: iSTAT Allen Test Pass; iSTAT Arterial Blood Gas HCO3 21 meg/L (19-24); iSTAT Arterial Blood Gas pCO2 63 mmHg (35-46); iSTAT Arterial Blood Gas pH 7.14 (7.35-7.45); iSTAT Arterial Blood Gas pO2 58 mmHg (80-95); iSTAT Carbon Dioxide 23 mmol/L (24-31); iSTAT FiO2 60 %; iSTAT Site R Radial
[2019-08-30] MEDS: PIPERACILLIN/TAZOBACTAM 4.5 GM in DEXTROSE 5% 100 ML IV SCH ×2 (04:36→13:53)
[2019-08-30] MEDS ORDERED: FUROSEMIDE 80 MG in SYRINGE 0 ML IV ONE (05:15)
--- NOTE | 2019-08-30 05:56 | XRay Report ---
XR chest 1V portable CLINICAL HISTORY: resp failure dyspnea COMPARISON STUDY: 08/29/2019 FINDINGS: Progression and/or interval development of a diffuse left hemithoracic infiltrate. Nasogast miguel a tube is within the gastric fundus. There is a trace amount pleural fluid right base laterally. IMPRESSION: Progressive diffuse left hemithoracic infiltrate. Small right pleural effusion. Nasogast miguel a tube within the gastric fundus. ACT 112: Negative or not required by law. The above report was generated using voice recognition software. It may contain grammatical, syntax or spelling errors. Electronically signed by: James Mercado M.D. 08/30/2019 5:55 AM
[2019-08-30] MEDS ORDERED: SODIUM BICARB 8.4% INJ 50 MEQ/50 ML SYR IV ONE (08:00)
[2019-08-30 08:07] LABS: Base Excess VBG -5.4 mEq/L; HCO3 VBG 23 mmol/L; Oxygen Saturation VBG < 60.0 %; PCO2 VBG 59 mmHg (38-50); PO2 VBG 27 mmHg; pH VBG 7.21 (7.36-7.41)
[2019-08-30] MEDS: INSULIN REGULAR 250 UNITS in SODIUM CHLORIDE 0.9% 247.5 ML IV SCH ×2 (08:12→10:50)
[2019-08-30] MEDS: HEPARIN SOD 5,000 UNIT/0.5 ML VIAL SQ SCH (08:15)
[2019-08-30] MEDS: INSULIN ASPART 100 UNITS/ML 3 ML PEN SC SCH (08:15)
--- NOTE | 2019-08-30 08:19 | XRay Report ---
XR KUB/Abdomen 1 view CLINICAL HISTORY: bowel obstruction pain COMPARISON STUDY: 08/29/2019 FINDINGS: Nasogastric tube is within the gastric fundus. Improved bowel pattern. Diminished small bowel distention. Normal-appearing colon. IMPRESSION: Improved small bowel obstructive change. ACT 112: Negative or not required by law. The above report was generated using voice recognition software. It may contain grammatical, syntax or spelling errors. Electronically signed by: James Mercado M.D. 08/30/2019 8:18 AM
--- NOTE | 2019-08-30 08:36 | Hospitalist Progress Note ---
Date of Service August 30, 2019 Assessment & Plan (1) DKA (diabetic ketoacidoses): This patient is a 63-year-old male with a history of NSCLC, COPD, DM 2, GERD, hyperlipidemia, HTN, intercostal neuralgia, migraine, osteoarthritis, peripheral neuropathy, who presents to the ER with worsening weakness, nausea/vomiting and hyperglycemia. He started a bowel prep for colonoscopy this past Saturday and had loose stools through the night as expected. He then was having nausea and vomiting when he presented for his colonoscopy and the procedure was canceled. He was sent for CT scan of the abdomen/pelvis on 08/26 did not show any evidence of acute issues. He then went home and proceeded to continue to have nausea and vomiting. He was unable to take any of his medications and also stopped taking all of his insulin. His called for an ambulance when he was too weak to get out of bed. The pt did poorly overnight and in the morning of 08/30/19 Dr Dia, spoke to family about progressing to INtubationand ventilation due to persistent acidosis not helped by treatment of DKA and Bipap, pt still wtih Co2 retention, not clear if other source of metabolic acidosis also. The family decided to now change to comfort care measures, stopping Bipap and not continuing care of acute or chronic problems but having care for symptomtic relief On admission , he was found to have a blood sugar of 1585, was tachycardic to the 120s hypotensive with systolic blood pressure in the 80s, tachypneic. He had a WBC count elevated at 27, metabolic acidosis with an anion gap of 28, ABG was 7.0 07/20/1991 on 2 L nasal cannula. Chest x-ray revealed a left lower lobe pneumonitis. A CT scan of the abdomen/pelvis showed findings consistent with a proximal small bowel obstruction, no intraperitoneal free air, pneumatosis intestinalis, and no portal venous gas. He was combative at times and very lethargic. He was given 2 L normal saline, IV Zosyn for the pneumonia(given rocephin in ER), and started on insulin drip. An NG tube was then placed. -Admitted to ICU for DKA likely secondary to noncompliance with insulin in setting of nausea/vomiting and SBO - insulin drip and DKA protocol. Pt did have good improvement in his glucoses but not his acidosis (2) Small bowel obstruction: With development of SBO in the last 48 hours in the proximal small bowel since previous CT 08/26. -NG tube placed in the ER for large amount of dark brown/green fluid surgery is not planning on proceeding with surgery (3) Acute respiratory failure with hypoxia: Secondary to aspiration pneumonitis, with left lower lobe infiltrate on chest x-ray Also with tachypnea secondary to DKA Pt remains in distress and on bipap, acidotic and with persistent acidemia (4) TALIA (acute kidney injury): Creatinine up to 4 on admission from baseline of 0.8 Secondary to DKA and dehydration (5) Diabetes mellitus type 2, controlled, with complications: Hemoglobin A1c only 6.8% just 2 months ago Daughter reports on the phone that he has been having high blood sugars lately and very labile, -Insulin drip and management of DKA as above (6) Non-small cell lung cancer (NSCLC): With a history of right middle lobe and right lower lobectomies and mediastinal lymphadenectomy Status post chemotherapy and radiation (7) Dehydration: Due to previous nausea/vomiting and severe DKA Corrected sodium for glucose is elevated at 148 (8) Hyperkalemia: influenced by hyperkalemia (9) Hyperphosphatemia: Elevated phosphorus likely secondary to renal failure and dehydration as above (10) Hypertension: Blood pressures low secondary to significant volume depletion -Holding home lisinopril (11) GERD (gastroesophageal reflux disease): -Not on medication at home for this -Added IV Protonix for GI protection while in the ICU (12) Hypercholesterolemia: Noted as a diagnosis in the chart, but not on any medication for this -Should be on a statin given diabetes and age with high risk for heart disease (13) DVT prophylaxis: SCDs, hold off on chemical anticoagulation at this time in case of need for surgery Disposition-admit to ICU, critically ill DNR/DNI as discussed with patient's and daughter. family wishes to proceed to comfort care Of note, the patient's has a history of stroke and has difficulty with her memory. The patient's daughter, Samantha Tolentino #[phone], should be the primary point of contact (14) Leukocytosis: Secondary to stress of DKA, nausea/vomiting, possible aspiration pneumonia - -Follow blood cultures Admission and Anticipated Discharge Date Admission Date: August 29, 2019 Subjective In the intensive care unit while wearing BiPAP patient was agitated and uncomfortable. During my visit the intensive care doctor was speaking to the family who wished to pursue comfort care measures per the patient's wishes prior to him getting ill. There is concern for ongoing acidosis which could be related to his bowel obstruction and could possibly be related to ischemic bowel. Subsequently at this time intensive care attending has recommended comfort care measures supporting the patient's breathing with BiPAP only till the family will arrive. At that time BiPAP will just be discontinued and the patient be given medications for symptomatic pain and respiratory hunger. His demise is expected Review of Systems Review of Systems: Unobtainable due to cognitive status Physical Exam Physical Exam: The patient appeared agitated and distressed Vital signs as documented. Head exam is normocephalic atraumatic no scleral icterus Patient has a BiPAP in place Neck is with JVD, trachea is midline Lungs are coarse in all lung ash Cardiac exam, tachycardic Abdominal exam reveals hypoactive bowel sounds distended and tympanitic Extremities are nonedematous and both pedal pulses are normal. Neurologic exam is agitated and not following commands Results & Data Results & Data ([facility]) Vital Signs (Past 12 Hours) Vital Signs Temp Pulse Resp BP Pulse Ox 08/30/19 07:37 114 H 26 H 93 08/30/19 05:55 97.0 F L 112 H 23 117/60 96 08/30/19 05:26 109 H 23 100/52 L 95 08/30/19 04:55 96.8 F L 113 H 24 112/64 95 08/30/19 04:29 115 H 28 H 91 08/30/19 04:25 111 H 24 98/64 L 08/30/19 03:55 96.8 F L 116 H 26 H 104/57 L 92 08/30/19 03:25 116 H 26 H 102/60 91 08/30/19 03:23 102 H 24 92 08/30/19 02:55 96.4 F L 118 H 26 H 102/60 92 08/30/19 02:25 118 H 26 H 102/60 92 08/30/19 01:55 97.0 F L 118 H 25 H 94/57 L 94 08/30/19 01:33 116 H 26 H 83 L 08/30/19 01:25 123 H 20 96/62 L 90 08/30/19 00:55 98.2 F 115 H 25 H 92/57 L 95 08/30/19 00:30 115 H 27 H 93 08/30/19 00:25 115 H 26 H 108/60 92 08/29/19 23:55 97.7 F 120 H 27 H 111/67 91 08/29/19 23:25 116 H 27 H 111/63 91 08/29/19 22:55 97.7 F 117 H 27 H 106/58 L 92 08/29/19 22:25 119 H 25 H 104/60 91 08/29/19 21:55 97.7 F 116 H 29 H 104/56 L 93 08/29/19 21:25 117 H 27 H 113/60 85 L 08/29/19 20:55 97.3 F L 117 H 29 H 121/64 91 PG Care Time/CCT Total # of Minutes Spent Total Time Spent with Patient: Total time spent is greater than 50% in coordination of care (as documented) at patient's floor/unit and/or counseling patient: Coding Level of Care Code 75279 Subseq Hosp Care Lvl 3 Diagnoses DKA (diabetic ketoacidoses) E11.10 Small bowel obstruction K56.609 Acute respiratory failure with hypoxia J96.01 TALIA (acute kidney injury) N17.9 Diabetes mellitus type 2, controlled, with complications E11.8 Non-small cell lung cancer (NSCLC) C34.90 Dehydration E86.0 Hyperkalemia E87.5 Hyperphosphatemia E83.39 Hypertension I10 GERD (gastroesophageal reflux disease) K21.9 Hypercholesterolemia E78.00 DVT prophylaxis Z29.9 Leukocytosis D72.829
[2019-08-30 08:38] LABS: Magnesium 2.8 mg/dl (1.8-2.4); Phosphorus 4.7 mg/dl (2.5-4.9)
--- NOTE | 2019-08-30 08:49 | Critical Care Progress Note ---
Date of Service August 30, 2019 Assessment & Plan (1) DKA (diabetic ketoacidoses): Impression: 63-year-old male with severe DKA due to medication noncompliance, dehydration, and possible bowel obstruction. He also has a markedly elevated leukocytosis possibly related to small bowel obstruction versus aspiration pneumonia. DKA complicated by multiple electrolyte abnormalities, metabolic encephalopathy, and acute renal failure. 24-hour events: Patient mated to the ICU. He was aggressively fluid resuscitated overnight. He did develop some increasing oxygen requirement was placed on BiPAP. Chest x-ray demonstrated alveolar infiltrates in the left lung. Unclear if this represents aspiration pneumonia, or noncardiogenic pulmonary edema. Unfortunately the patient's lactate has continued to climb. Recommendations: 1. DKA: Patient has responded favorably. His anion gap is now at 10 and beta hydroxybutyrate is back to normal. Continuing IV insulin as the patient is unable to tolerate oral due to his bowel obstruction, currently. 2. Small bowel obstruction: We will check KUB. Appreciate surgical assistance. NG tube to low intermittent suction with low output. He does not appear overtly distended. His climbing lactate is somewhat concerning and after discussion with surgery will proceed with repeat CT of the abdomen and pelvis with oral contrast 3. Leukocytosis: Unclear etiology. Multiple potential sources including aspiration pneumonia and intra-abdominal process. Has been initiated on Zosyn. Pharmacy has been asked to assist with dosing medication given his acute renal insufficiency. We will check a pro calcitonin. 4. Acute renal insufficiency: Serum creatinine has improved somewhat but remains elevated well above his baseline. Will check urine electrolytes, and calculate fractional excretion of sodium. Probable ATN. No hydronephrosis identified on CT of the abdomen and pelvis so will defer renal ultrasound at this point time 5. Lactic acidosis: Despite aggressive resuscitation, the patient's lactate continues to climb. His abdominal exam is somewhat difficult to interpret. Discussed with general surgery and will plan on repeating CT scan with oral contrast. Cannot give IV contrast due to kidney function. 6. Possible aspiration pneumonia with progressive acute hypoxemic respiratory failure: Progressive alveolar infiltrates on the left lung. Would be noncardiogenic pulmonary edema versus aspiration pneumonia. The patient is in no condition to consider bronchoscopy. Continue empiric antibiotics. Patient did receive diuretics and will continue to receive noninvasive positive pressure ventilation for now. 7. Metabolic encephalopathy: Related to acid-base derangements and metabolic disarray. Initial CT the head unremarkable. Anticipate that his mental status should continue to improve will continue to follow clinically. 8. DVT and GI prophylaxis will be continued. Patient is critically ill at this point time with significant possibility of clinical deterioration. Will be followed closely in the ICU for now (2) Small bowel obstruction: (3) TALIA (acute kidney injury): (4) Leukocytosis: Admission and Anticipated Discharge Date Admission Date: August 29, 2019 Subjective Patient remains somewhat encephalopathic. He can nod his head and answer some questions. He denies abdominal pain Review of Systems Review of Systems: Unobtainable due to cognitive status Physical Exam Constitutional: + ill appearing, average body habitus and + lethargic Eyes: + anicteric sclerae ENMT: Mouth: + oral mucosal abnormality (very dry) Neck: trachea midline, no thyromegaly Respiratory: + tachypneic (mild) Auscultation: + rhonchi (bilateral); no wheezes Cardiovascular: Rate/Rhythm: regular rhythm and + tachycardic Heart Sounds: no murmur Extremities: no edema Chest (Breasts): Chest: normal inspection of chest Gastrointestinal (Abdomen): Inspection/Auscultation: + abdomen distended (mild) and + hypoactive bowel sounds Percussion/Palpation: abdomen soft (Softly distended); abdomen nontender (but patient is very lethargic) Musculoskeletal: Extremities: extremities normal to inspection; no cyanosis and no clubbing Skin: no rashes, warm and dry Neurologic: moves all extremities (Voluntarily moves extremities but does not follow commands) and + confused; + not awake Motor/Sensory: no tremor Lymphatic: no lymphedema Results & Data Results & Data ([facility]) Vital Signs (Past 12 Hours) Vital Signs Temp Pulse Resp BP Pulse Ox 08/30/19 07:37 114 H 26 H 93 08/30/19 05:55 36.1 C L 112 H 23 117/60 96 08/30/19 05:26 109 H 23 100/52 L 95 08/30/19 04:55 36 C L 113 H 24 112/64 95 08/30/19 04:29 115 H 28 H 91 08/30/19 04:25 111 H 24 98/64 L 08/30/19 03:55 36 C L 116 H 26 H 104/57 L 92 08/30/19 03:25 116 H 26 H 102/60 91 08/30/19 03:23 102 H 24 92 08/30/19 02:55 35.8 C L 118 H 26 H 102/60 92 08/30/19 02:25 118 H 26 H 102/60 92 08/30/19 01:55 36.1 C L 118 H 25 H 94/57 L 94 08/30/19 01:33 116 H 26 H 83 L 08/30/19 01:25 123 H 20 96/62 L 90 08/30/19 00:55 36.8 C 115 H 25 H 92/57 L 95 08/30/19 00:30 115 H 27 H 93 08/30/19 00:25 115 H 26 H 108/60 92 08/29/19 23:55 36.5 C 120 H 27 H 111/67 91 08/29/19 23:25 116 H 27 H 111/63 91 08/29/19 22:55 36.5 C 117 H 27 H 106/58 L 92 08/29/19 22:25 119 H 25 H 104/60 91 08/29/19 21:55 36.5 C 116 H 29 H 104/56 L 93 08/29/19 21:25 117 H 27 H 113/60 85 L 08/29/19 20:55 36.3 C L 117 H 29 H 121/64 91 Laboratory Results 08/30/19 03:21 08/30/19 03:21 Diagnostic Findings KUB today reviewed. No free air identified. Chest x-ray demonstrates alveolar infiltrates more prominent on the left than the right. Coding Level of Care Code Critical Care 1st 30-74 mins Diagnoses DKA (diabetic ketoacidoses) E11.10 Small bowel obstruction K56.609 TALIA (acute kidney injury) N17.9 Leukocytosis D72.829 Time Spent (min) 55 Comment 55 min CC time managing patient with life threatening issues.
[2019-08-30] MEDS ORDERED: MoRPHine SULFATE 2 MG/ML CARP IV PRN (09:55)
[2019-08-30] MEDS ORDERED: MIDAZOLAM HCL 1 MG/ML 2ML VIAL IV PRN (09:55)
[2019-08-30] MEDS ORDERED: LORazepam 2 MG/4 ML VIAL ONE (10:04)
[2019-08-30] MEDS ORDERED: LORazepam 1 MG/2 ML VIAL IV PRN (10:07)
[2019-08-30] MEDS ORDERED: LORazepam 0.5 MG/1 ML VIAL IV PRN (10:31)
[2019-08-30] MEDS ORDERED: ONDANSETRON INJ 2 MG/ML 2 ML VIAL IV PRN (10:31)
[2019-08-30] MEDS ORDERED: ATROPINE SULFATE 1% OP SOLN 2 ML BTL SL PRN (10:31)
[2019-08-30] MEDS ORDERED: LORazepam 0.5 MG TAB PO PRN (10:31)
[2019-08-30] MEDS ORDERED: ONDANSETRON 4 MG OD TAB SL PRN (10:31)
--- NOTE | 2019-08-30 12:58 | Surgery Progress Note ---
Date of Service I saw pt this morning at 9:20 am, pt was on BIPAP, i called pt's name he open his eye, pt said no abdominal pain, NG- 100ml, lactic 2.8, 3.4 August 30, 2019 Assessment & Plan (1) Acute respiratory failure with hypoxia: pt is a 63 year-old male who was admitted to hospital for nausea, vomiting, abdominal pain, IMP: SBO, dehydration, acute renal failure, Plan, no emergent surgical indication now, I agree with conservation treatment, IV fluid, antibiotic, NG tube, repeat labs in am, will F/U, D/W hospitalist, pt's . 08/29/2019 7:50PM correct low NA, high blood glucose, NG tube put 1000ml, re-check lactic acid 6 hours, please call with increase lactic acid or pt's co ndition is getting worse, , D/W ICU attending, repeat labs and KUB in am, will F/U 08/30/2019 12:59AM not worse SBO, no peritoneal signs, now emergent surgical indication now, D/W ICU attending for repeat CT scan and intubation, per-ICU attending note, pt's family wants comfortable care, (2) Dehydration: (3) Hyperkalemia: (4) Pneumonitis: (5) Small bowel obstruction: Subjective In the intensive care unit while wearing BiPAP patient was agitated and uncomfortable. During my visit the intensive care doctor was speaking to the family who wished to pursue comfort care measures per the patient's wishes prior to him getting ill. There is concern for ongoing acidosis which could be related to his bowel obstruction and could possibly be related to ischemic bowel. Subsequently at this time intensive care attending has recommended comfort care measures supporting the patient's breathing with BiPAP only till the family will arrive. At that time BiPAP will just be discontinued and the patient be given medications for symptomatic pain and respiratory hunger. His demise is expected Review of Systems Constitutional: as per Subjective / HPI Eyes: as per Subjective / HPI Ear, Nose, Mouth, Throat: as per Subjective / HPI Respiratory: as per Subjective / HPI Cardiovascular: as per Subjective / HPI Gastrointestinal: as per Subjective / HPI Genitourinary: + as per Subjective / HPI and + problem reported (TALIA) Musculoskeletal: as per Subjective / HPI Integumentary: as per Subjective / HPI Neurologic: as per Subjective / HPI Psychiatric: as per Subjective / HPI Endocrine: as per Subjective / HPI DM Hematologic / Lymphatic: as per Subjective / HPI Allergy / Immunological: as per Subjective / HPI Physical Exam Constitutional: well developed, well nourished and + ill appearing Eyes: PERRL, conjunctivae normal, anicteric sclerae ENMT: external ear and nose normal, oropharynx normal Neck: trachea midline, no thyromegaly Respiratory: normal respiratory effort, lungs clear to auscultation Cardiovascular: RRR, no murmur, no edema Rate/Rhythm: regular rate and regular rhythm Gastrointestinal (Abdomen): normal bowel sounds, soft, nontender, no hepatosplenomegaly Percussion/Palpation: abdomen soft NT, ND, BS + Musculoskeletal: no cyanosis or clubbing, extremities motor strength 5/5 Skin: no rashes, warm and dry Results & Data Vital Signs (Past 12 Hours) Vital Signs Temp Pulse Resp BP Pulse Ox 08/30/19 12:00 115 H 27 H 92 08/30/19 10:56 117 H 26 H 78/56 L 92 08/30/19 10:52 119 H 26 H 99/57 L 92 08/30/19 09:55 120 H 32 H 92/80 L 81 L 08/30/19 09:25 117 H 23 120/72 93 08/30/19 08:56 118 H 22 100/63 93 08/30/19 08:26 116 H 30 H 119/81 91 08/30/19 07:56 116 H 15 142/118 H 92 08/30/19 07:37 114 H 26 H 93 08/30/19 07:25 116 H 27 H 102/70 93 08/30/19 06:55 117 H 27 H 102/67 94 08/30/19 05:55 36.1 C L 112 H 23 117/60 96 08/30/19 05:26 109 H 23 100/52 L 95 08/30/19 04:55 36 C L 113 H 24 112/64 95 08/30/19 04:29 115 H 28 H 91 08/30/19 04:25 111 H 24 98/64 L 08/30/19 03:55 36 C L 116 H 26 H 104/57 L 92 08/30/19 03:25 116 H 26 H 102/60 91 08/30/19 03:23 102 H 24 92 08/30/19 02:55 35.8 C L 118 H 26 H 102/60 92 08/30/19 02:25 118 H 26 H 102/60 92 08/30/19 01:55 36.1 C L 118 H 25 H 94/57 L 94 08/30/19 01:33 116 H 26 H 83 L 08/30/19 01:25 123 H 20 96/62 L 90 08/30/19 00:55 36.8 C 115 H 25 H 92/57 L 95 Laboratory Results Abnormal lab results 08/29/19 08/29/19 08/29/19 Range/Units 11:59 11:59 13:36 WBC 27.67 H (4.8-10.8) K/uL MCHC 31.6 L (32-36) g/dL Plt Count 418 H (130-400) K/uL Immature Gran # (Auto) 0.21 H (0.00-0.02) K/uL Neut # (Auto) 23.37 H (1.4-6.5) K/uL Lymph # (Auto) 0.59 L (1.2-3.4) K/uL [place] # (Auto) 3.46 H (0.11-0.59) K/uL POC pH (7.35-7.45) POC pCO2 (35-46) mmHg POC pO2 (80-95) mmHg POC Total CO2 (24-31) mmol/L ABG pH 7.04 L* (7.35-7.45) ABG pCO2 27 L (35-46) mmHg ABG HCO3 7 L (19-24) mmol/L POC ABG O2 Sat (90-95) % ABG O2 Saturation 95.1 H (90-95) % ABG Base Excess -22.4 L (-9-1.8) mEq/L VBG pH (7.36-7.41) VBG pCO2 (38-50) mmHg Sodium 124 L (136-145) mmol/L Potassium 5.2 H (3.5-5.1) mmol/L Chloride 86 L (98-107) mmol/L Carbon Dioxide 10 L (21-32) mmol/L Anion Gap 28.0 H (3-11) BUN 68 H (7-18) mg/dl Creatinine 4.12 H (0.6-1.4) mg/dl Glucose 1585 H* (70-99) mg/dl POC Glucose (70-99) mg/dl Lactate (0.4-2.0) mmol/L Calcium (8.5-10.1) mg/dl Phosphorus 8.2 H (2.5-4.9) mg/dl Magnesium 3.6 H (1.8-2.4) mg/dl AST (15-37) U/L Alkaline Phosphatase 147 H (45-117) U/L NT-Pro-B Natriuret Pep (0-900) pg/ml Albumin (3.4-5.0) gm/dl Beta-Hydroxybutyric Acd 107.96 H (0.2-2.81) mg/dl Procalcitonin (0-0.5) ng/ml 08/29/19 08/29/19 08/29/19 Range/Units 14:20 14:20 15:38 WBC (4.8-10.8) K/uL MCHC (32-36) g/dL Plt Count (130-400) K/uL Immature Gran # (Auto) (0.00-0.02) K/uL Neut # (Auto) (1.4-6.5) K/uL Lymph # (Auto) (1.2-3.4) K/uL [place] # (Auto) (0.11-0.59) K/uL POC pH (7.35-7.45) POC pCO2 (35-46) mmHg POC pO2 (80-95) mmHg POC Total CO2 (24-31) mmol/L ABG pH (7.35-7.45) ABG pCO2 (35-46) mmHg ABG HCO3 (19-24) mmol/L POC ABG O2 Sat (90-95) % ABG O2 Saturation (90-95) % ABG Base Excess (-9-1.8) mEq/L VBG pH (7.36-7.41) VBG pCO2 (38-50) mmHg Sodium 128 L (136-145) mmol/L Potassium (3.5-5.1) mmol/L Chloride 92 L (98-107) mmol/L Carbon Dioxide 10 L (21-32) mmol/L Anion Gap 26.0 H (3-11) BUN 67 H (7-18) mg/dl Creatinine 4.15 H (0.6-1.4) mg/dl Glucose 1418 H* (70-99) mg/dl POC Glucose > 600 H* (70-99) mg/dl Lactate 2.8 H* (0.4-2.0) mmol/L Calcium (8.5-10.1) mg/dl Phosphorus (2.5-4.9) mg/dl Magnesium (1.8-2.4) mg/dl AST (15-37) U/L Alkaline Phosphatase (45-117) U/L NT-Pro-B Natriuret Pep (0-900) pg/ml Albumin (3.4-5.0) gm/dl Beta-Hydroxybutyric Acd 102.88 H (0.2-2.81) mg/dl Procalcitonin (0-0.5) ng/ml 08/29/19 08/29/19 08/29/19 Range/Units 16:37 16:50 17:07 WBC (4.8-10.8) K/uL MCHC (32-36) g/dL Plt Count (130-400) K/uL Immature Gran # (Auto) (0.00-0.02) K/uL Neut # (Auto) (1.4-6.5) K/uL Lymph # (Auto) (1.2-3.4) K/uL [place] # (Auto) (0.11-0.59) K/uL POC pH (7.35-7.45) POC pCO2 (35-46) mmHg POC pO2 (80-95) mmHg POC Total CO2 (24-31) mmol/L ABG pH (7.35-7.45) ABG pCO2 (35-46) mmHg ABG HCO3 (19-24) mmol/L POC ABG O2 Sat (90-95) % ABG O2 Saturation (90-95) % ABG Base Excess (-9-1.8) mEq/L VBG pH (7.36-7.41) VBG pCO2 (38-50) mmHg Sodium (136-145) mmol/L Potassium (3.5-5.1) mmol/L Chloride (98-107) mmol/L Carbon Dioxide (21-32) mmol/L Anion Gap (3-11) BUN (7-18) mg/dl Creatinine (0.6-1.4) mg/dl Glucose 1251 H* (70-99) mg/dl POC Glucose > 600 H* (70-99) mg/dl Lactate 4.1 H* (0.4-2.0) mmol/L Calcium (8.5-10.1) mg/dl Phosphorus 6.5 H D (2.5-4.9) mg/dl Magnesium 3.3 H (1.8-2.4) mg/dl AST (15-37) U/L Alkaline Phosphatase (45-117) U/L NT-Pro-B Natriuret Pep (0-900) pg/ml Albumin (3.4-5.0) gm/dl Beta-Hydroxybutyric Acd (0.2-2.81) mg/dl Procalcitonin (0-0.5) ng/ml 08/29/19 08/29/19 08/29/19 Range/Units 17:55 18:02 19:21 WBC (4.8-10.8) K/uL MCHC (32-36) g/dL Plt Count (130-400) K/uL Immature Gran # (Auto) (0.00-0.02) K/uL Neut # (Auto) (1.4-6.5) K/uL Lymph # (Auto) (1.2-3.4) K/uL [place] # (Auto) (0.11-0.59) K/uL POC pH (7.35-7.45) POC pCO2 (35-46) mmHg POC pO2 (80-95) mmHg POC Total CO2 (24-31) mmol/L ABG pH (7.35-7.45) ABG pCO2 (35-46) mmHg ABG HCO3 (19-24) mmol/L POC ABG O2 Sat (90-95) % ABG O2 Saturation (90-95) % ABG Base Excess (-9-1.8) mEq/L VBG pH (7.36-7.41) VBG pCO2 (38-50) mmHg Sodium 134 L (136-145) mmol/L Potassium (3.5-5.1) mmol/L Chloride (98-107) mmol/L Carbon Dioxide 15 L (21-32) mmol/L Anion Gap 18.0 H (3-11) BUN 68 H (7-18) mg/dl Creatinine 3.72 H D (0.6-1.4) mg/dl Glucose 1054 H* 945 H* (70-99) mg/dl POC Glucose > 600 H* (70-99) mg/dl Lactate (0.4-2.0) mmol/L Calcium (8.5-10.1) mg/dl Phosphorus (2.5-4.9) mg/dl Magnesium 3.0 H (1.8-2.4) mg/dl AST (15-37) U/L Alkaline Phosphatase (45-117) U/L NT-Pro-B Natriuret Pep (0-900) pg/ml Albumin (3.4-5.0) gm/dl Beta-Hydroxybutyric Acd 73.60 H (0.2-2.81) mg/dl Procalcitonin (0-0.5) ng/ml 08/29/19 08/29/19 08/29/19 Range/Units 19:26 21:12 21:19 WBC (4.8-10.8) K/uL MCHC (32-36) g/dL Plt Count (130-400) K/uL Immature Gran # (Auto) (0.00-0.02) K/uL Neut # (Auto) (1.4-6.5) K/uL Lymph # (Auto) (1.2-3.4) K/uL [place] # (Auto) (0.11-0.59) K/uL POC pH (7.35-7.45) POC pCO2 (35-46) mmHg POC pO2 (80-95) mmHg POC Total CO2 (24-31) mmol/L ABG pH (7.35-7.45) ABG pCO2 (35-46) mmHg ABG HCO3 (19-24) mmol/L POC ABG O2 Sat (90-95) % ABG O2 Saturation (90-95) % ABG Base Excess (-9-1.8) mEq/L VBG pH 7.21 L (7.36-7.41) VBG pCO2 (38-50) mmHg Sodium (136-145) mmol/L Potassium (3.5-5.1) mmol/L Chloride (98-107) mmol/L Carbon Dioxide (21-32) mmol/L Anion Gap (3-11) BUN (7-18) mg/dl Creatinine (0.6-1.4) mg/dl Glucose 770 H* (70-99) mg/dl POC Glucose > 600 H* (70-99) mg/dl Lactate (0.4-2.0) mmol/L Calcium (8.5-10.1) mg/dl Phosphorus (2.5-4.9) mg/dl Magnesium (1.8-2.4) mg/dl AST (15-37) U/L Alkaline Phosphatase (45-117) U/L NT-Pro-B Natriuret Pep (0-900) pg/ml Albumin (3.4-5.0) gm/dl Beta-Hydroxybutyric Acd 34.70 H (0.2-2.81) mg/dl Procalcitonin (0-0.5) ng/ml 08/29/19 08/29/19 08/29/19 Range/Units 23:00 23:17 23:17 WBC (4.8-10.8) K/uL MCHC (32-36) g/dL Plt Count (130-400) K/uL Immature Gran # (Auto) (0.00-0.02) K/uL Neut # (Auto) (1.4-6.5) K/uL Lymph # (Auto) (1.2-3.4) K/uL [place] # (Auto) (0.11-0.59) K/uL POC pH (7.35-7.45) POC pCO2 (35-46) mmHg POC pO2 (80-95) mmHg POC Total CO2 (24-31) mmol/L ABG pH (7.35-7.45) ABG pCO2 (35-46) mmHg ABG HCO3 (19-24) mmol/L POC ABG O2 Sat (90-95) % ABG O2 Saturation (90-95) % ABG Base Excess (-9-1.8) mEq/L VBG pH (7.36-7.41) VBG pCO2 (38-50) mmHg Sodium (136-145) mmol/L Potassium (3.5-5.1) mmol/L Chloride (98-107) mmol/L Carbon Dioxide 20 L (21-32) mmol/L Anion Gap 12.0 H (3-11) BUN 61 H (7-18) mg/dl Creatinine 3.46 H (0.6-1.4) mg/dl Glucose 630 H* (70-99) mg/dl POC Glucose > 600 H* (70-99) mg/dl Lactate 2.9 H* (0.4-2.0) mmol/L Calcium (8.5-10.1) mg/dl Phosphorus (2.5-4.9) mg/dl Magnesium 2.7 H (1.8-2.4) mg/dl AST (15-37) U/L Alkaline Phosphatase (45-117) U/L NT-Pro-B Natriuret Pep (0-900) pg/ml Albumin (3.4-5.0) gm/dl Beta-Hydroxybutyric Acd 22.91 H (0.2-2.81) mg/dl Procalcitonin (0-0.5) ng/ml 08/30/19 08/30/19 08/30/19 Range/Units 00:47 01:52 02:48 WBC (4.8-10.8) K/uL MCHC (32-36) g/dL Plt Count (130-400) K/uL Immature Gran # (Auto) (0.00-0.02) K/uL Neut # (Auto) (1.4-6.5) K/uL Lymph # (Auto) (1.2-3.4) K/uL [place] # (Auto) (0.11-0.59) K/uL POC pH (7.35-7.45) POC pCO2 (35-46) mmHg POC pO2 (80-95) mmHg POC Total CO2 (24-31) mmol/L ABG pH (7.35-7.45) ABG pCO2 (35-46) mmHg ABG HCO3 (19-24) mmol/L POC ABG O2 Sat (90-95) % ABG O2 Saturation (90-95) % ABG Base Excess (-9-1.8) mEq/L VBG pH (7.36-7.41) VBG pCO2 (38-50) mmHg Sodium (136-145) mmol/L Potassium (3.5-5.1) mmol/L Chloride (98-107) mmol/L Carbon Dioxide (21-32) mmol/L Anion Gap (3-11) BUN (7-18) mg/dl Creatinine (0.6-1.4) mg/dl Glucose (70-99) mg/dl POC Glucose 548 H* 428 H* 315 H* (70-99) mg/dl Lactate (0.4-2.0) mmol/L Calcium (8.5-10.1) mg/dl Phosphorus (2.5-4.9) mg/dl Magnesium (1.8-2.4) mg/dl AST (15-37) U/L Alkaline Phosphatase (45-117) U/L NT-Pro-B Natriuret Pep (0-900) pg/ml Albumin (3.4-5.0) gm/dl Beta-Hydroxybutyric Acd (0.2-2.81) mg/dl Procalcitonin (0-0.5) ng/ml 08/30/19 08/30/19 08/30/19 Range/Units 03:21 03:21 03:21 WBC 13.97 H D (4.8-10.8) K/uL MCHC (32-36) g/dL Plt Count (130-400) K/uL Immature Gran # (Auto) 0.07 H (0.00-0.02) K/uL Neut # (Auto) 11.53 H (1.4-6.5) K/uL Lymph # (Auto) 0.70 L (1.2-3.4) K/uL [place] # (Auto) 1.66 H (0.11-0.59) K/uL POC pH (7.35-7.45) POC pCO2 (35-46) mmHg POC pO2 (80-95) mmHg POC Total CO2 (24-31) mmol/L ABG pH (7.35-7.45) ABG pCO2 (35-46) mmHg ABG HCO3 (19-24) mmol/L POC ABG O2 Sat (90-95) % ABG O2 Saturation (90-95) % ABG Base Excess (-9-1.8) mEq/L VBG pH (7.36-7.41) VBG pCO2 (38-50) mmHg Sodium (136-145) mmol/L Potassium (3.5-5.1) mmol/L Chloride 111 H (98-107) mmol/L Carbon Dioxide (21-32) mmol/L Anion Gap (3-11) BUN 60 H (7-18) mg/dl Creatinine 3.53 H (0.6-1.4) mg/dl Glucose 331 H* (70-99) mg/dl POC Glucose (70-99) mg/dl Lactate 2.9 H* (0.4-2.0) mmol/L Calcium 8.2 L (8.5-10.1) mg/dl Phosphorus 5.3 H D (2.5-4.9) mg/dl Magnesium 2.6 H (1.8-2.4) mg/dl AST 86 H (15-37) U/L Alkaline Phosphatase (45-117) U/L NT-Pro-B Natriuret Pep 11406 H (0-900) pg/ml Albumin 3.0 L (3.4-5.0) gm/dl Beta-Hydroxybutyric Acd (0.2-2.81) mg/dl Procalcitonin (0-0.5) ng/ml 08/30/19 08/30/19 08/30/19 Range/Units 04:17 04:19 05:22 WBC (4.8-10.8) K/uL MCHC (32-36) g/dL Plt Count (130-400) K/uL Immature Gran # (Auto) (0.00-0.02) K/uL Neut # (Auto) (1.4-6.5) K/uL Lymph # (Auto) (1.2-3.4) K/uL [place] # (Auto) (0.11-0.59) K/uL POC pH 7.14 L* (7.35-7.45) POC pCO2 63 H (35-46) mmHg POC pO2 58 L (80-95) mmHg POC Total CO2 23 L (24-31) mmol/L ABG pH (7.35-7.45) ABG pCO2 (35-46) mmHg ABG HCO3 (19-24) mmol/L POC ABG O2 Sat 80.0 L (90-95) % ABG O2 Saturation (90-95) % ABG Base Excess (-9-1.8) mEq/L VBG pH (7.36-7.41) VBG pCO2 (38-50) mmHg Sodium (136-145) mmol/L Potassium (3.5-5.1) mmol/L Chloride (98-107) mmol/L Carbon Dioxide (21-32) mmol/L Anion Gap (3-11) BUN (7-18) mg/dl Creatinine (0.6-1.4) mg/dl Glucose (70-99) mg/dl POC Glucose 267 H 217 H (70-99) mg/dl Lactate (0.4-2.0) mmol/L Calcium (8.5-10.1) mg/dl Phosphorus (2.5-4.9) mg/dl Magnesium (1.8-2.4) mg/dl AST (15-37) U/L Alkaline Phosphatase (45-117) U/L NT-Pro-B Natriuret Pep (0-900) pg/ml Albumin (3.4-5.0) gm/dl Beta-Hydroxybutyric Acd (0.2-2.81) mg/dl Procalcitonin (0-0.5) ng/ml 08/30/19 08/30/19 08/30/19 Range/Units 06:18 07:33 07:41 WBC (4.8-10.8) K/uL MCHC (32-36) g/dL Plt Count (130-400) K/uL Immature Gran # (Auto) (0.00-0.02) K/uL Neut # (Auto) (1.4-6.5) K/uL Lymph # (Auto) (1.2-3.4) K/uL [place] # (Auto) (0.11-0.59) K/uL POC pH (7.35-7.45) POC pCO2 (35-46) mmHg POC pO2 (80-95) mmHg POC Total CO2 (24-31) mmol/L ABG pH (7.35-7.45) ABG pCO2 (35-46) mmHg ABG HCO3 (19-24) mmol/L POC ABG O2 Sat (90-95) % ABG O2 Saturation (90-95) % ABG Base Excess (-9-1.8) mEq/L VBG pH (7.36-7.41) VBG pCO2 (38-50) mmHg Sodium (136-145) mmol/L Potassium (3.5-5.1) mmol/L Chloride (98-107) mmol/L Carbon Dioxide (21-32) mmol/L Anion Gap (3-11) BUN (7-18) mg/dl Creatinine (0.6-1.4) mg/dl Glucose (70-99) mg/dl POC Glucose 388 H* 192 H (70-99) mg/dl Lactate (0.4-2.0) mmol/L Calcium (8.5-10.1) mg/dl Phosphorus (2.5-4.9) mg/dl Magnesium (1.8-2.4) mg/dl AST (15-37) U/L Alkaline Phosphatase (45-117) U/L NT-Pro-B Natriuret Pep (0-900) pg/ml Albumin (3.4-5.0) gm/dl Beta-Hydroxybutyric Acd (0.2-2.81) mg/dl Procalcitonin 7.11 H (0-0.5) ng/ml 08/30/19 08/30/19 08/30/19 Range/Units 07:53 07:53 07:53 WBC (4.8-10.8) K/uL MCHC (32-36) g/dL Plt Count (130-400) K/uL Immature Gran # (Auto) (0.00-0.02) K/uL Neut # (Auto) (1.4-6.5) K/uL Lymph # (Auto) (1.2-3.4) K/uL [place] # (Auto) (0.11-0.59) K/uL POC pH (7.35-7.45) POC pCO2 (35-46) mmHg POC pO2 (80-95) mmHg POC Total CO2 (24-31) mmol/L ABG pH (7.35-7.45) ABG pCO2 (35-46) mmHg ABG HCO3 (19-24) mmol/L POC ABG O2 Sat (90-95) % ABG O2 Saturation (90-95) % ABG Base Excess (-9-1.8) mEq/L VBG pH 7.21 L (7.36-7.41) VBG pCO2 59 H (38-50) mmHg Sodium (136-145) mmol/L Potassium (3.5-5.1) mmol/L Chloride (98-107) mmol/L Carbon Dioxide (21-32) mmol/L Anion Gap (3-11) BUN (7-18) mg/dl Creatinine (0.6-1.4) mg/dl Glucose (70-99) mg/dl POC Glucose (70-99) mg/dl Lactate 3.2 H* (0.4-2.0) mmol/L Calcium (8.5-10.1) mg/dl Phosphorus (2.5-4.9) mg/dl Magnesium 2.8 H (1.8-2.4) mg/dl AST (15-37) U/L Alkaline Phosphatase (45-117) U/L NT-Pro-B Natriuret Pep (0-900) pg/ml Albumin (3.4-5.0) gm/dl Beta-Hydroxybutyric Acd (0.2-2.81) mg/dl Procalcitonin (0-0.5) ng/ml 08/30/19 Range/Units 08:46 WBC (4.8-10.8) K/uL MCHC (32-36) g/dL Plt Count (130-400) K/uL Immature Gran # (Auto) (0.00-0.02) K/uL Neut # (Auto) (1.4-6.5) K/uL Lymph # (Auto) (1.2-3.4) K/uL [place] # (Auto) (0.11-0.59) K/uL POC pH (7.35-7.45) POC pCO2 (35-46) mmHg POC pO2 (80-95) mmHg POC Total CO2 (24-31) mmol/L ABG pH (7.35-7.45) ABG pCO2 (35-46) mmHg ABG HCO3 (19-24) mmol/L POC ABG O2 Sat (90-95) % ABG O2 Saturation (90-95) % ABG Base Excess (-9-1.8) mEq/L VBG pH (7.36-7.41) VBG pCO2 (38-50) mmHg Sodium (136-145) mmol/L Potassium (3.5-5.1) mmol/L Chloride (98-107) mmol/L Carbon Dioxide (21-32) mmol/L Anion Gap (3-11) BUN (7-18) mg/dl Creatinine (0.6-1.4) mg/dl Glucose (70-99) mg/dl POC Glucose 203 H (70-99) mg/dl Lactate (0.4-2.0) mmol/L Calcium (8.5-10.1) mg/dl Phosphorus (2.5-4.9) mg/dl Magnesium (1.8-2.4) mg/dl AST (15-37) U/L Alkaline Phosphatase (45-117) U/L NT-Pro-B Natriuret Pep (0-900) pg/ml Albumin (3.4-5.0) gm/dl Beta-Hydroxybutyric Acd (0.2-2.81) mg/dl Procalcitonin (0-0.5) ng/ml Diagnostic Findings XR KUB/Abdomen 1 view CLINICAL HISTORY: bowel obstruction pain COMPARISON STUDY: 08/29/2019 FINDINGS: Nasogastric tube is within the gastric fundus. Improved bowel pattern. Diminished small bowel distention. Normal-appearing colon. IMPRESSION: Improved small bowel obstructive change.
[2019-08-30] MEDS: PANTOprazole 40 MG in SYRINGE 0 ML IV SCH (13:44)
--- NOTE | 2019-08-30 15:09 | Death Pronouncement Note ---
Date of Service August 30, 2019 Pronouncement Note Admission Date Admission Date: August 29, 2019 Date and Time of Date of : 08/30/19 Time of : 14:25 PCOD Preliminary cause of : Small bowel obstruction Contributing Factors (1) Acute respiratory failure with hypoxia: (2) Dehydration: (3) Hyperkalemia: (4) Pneumonitis: (5) Small bowel obstruction: Hospital Course Hospital Course: Pt presented in profound acidosis from DKA, DKA was treated and mixed acidosis persisted with known acute SBO, decision not to proceed to mechanical ventilation made by family as per pts wishes prior to becomming ill. Pt succumbed to acidosis felt secondary to SBO and metabolic acidosis associated with this Additional Data Confirmation of : no pulse, no respirations and no heart sounds Family: at bedside Attending/PCP notified?: Yes Attending physician: Simone Galvan MD Was code activated?: No Autopsy requested?: No glove examiner notified?: Yes Coding Level of Care Code D/C Day Management >30 mins Diagnoses Acute respiratory failure with hypoxia J96.01 Dehydration E86.0 Hyperkalemia E87.5 Pneumonitis J18.9 Small bowel obstruction K56.609
--- NOTE | 2019-08-30 15:13 | Discharge Summary ---
Date of Service August 30, 2019 Admission HPI Per Admitting Provider This patient is a 63-year-old male with a history of NSCLC, COPD, DM 2, GERD, hyperlipidemia, HTN, intercostal neuralgia, migraine, osteoarthritis, peripheral neuropathy, who presents to the ER with worsening weakness, nausea/vomiting and hyperglycemia. He started a bowel prep for colonoscopy this past Saturday and had loose stools through the night as expected. He then was having nausea and vomiting when he presented for his colonoscopy and the procedure was canceled. He was sent for CT scan of the abdomen/pelvis on 08/26 did not show any evidence of acute issues. He then went home and proceeded to continue to have nausea and vomiting. He was unable to take any of his medications and also stopped taking all of his insulin. His called for an ambulance when he was too weak to get out of bed today. In the ER, he was found to have a blood sugar of 1585, was tachycardic to the 120s hypotensive with systolic blood pressure in the 80s, tachypneic. He had a WBC count elevated at 27, metabolic acidosis with an anion gap of 28, ABG was 7.0 07/20/1991 on 2 L nasal cannula. Chest x-ray revealed a left lower lobe pneumonitis. A CT scan of the abdomen/pelvis showed findings consistent with a proximal small bowel obstruction, no intraperitoneal free air, pneumatosis intestinalis, and no portal venous gas. He was combative at times and very lethargic. He was given 2 L normal saline, IV Rocephin for the pneumonia, and started on insulin drip. When I saw him, he was quite lethargic, but did respond to verbal stimulus and open his eyes and moaned at me when I asked him a question. He was unable to give any other history. I spoke with his daughter, Samantha, as well as his , , on the phone for more history. They confirmed the above history. His daughter also was very clear that her father wants to be a DNR/DNI and she is paperwork at home stating this that he provided her. I discussed the case with the manager baby who is willing to accept the patient if surgery is willing to accept him at this facility. Surgical consultation was requested-I spoke with the surgeon who is accepting of this patient at this facility as well. NG tube was placed in the ER and he immediately had over a canister of output. Principal Diagnosis small bowel obstruction acidosis Discharge Exam pt was examined for heart tones and pulse, none were heard and pronounced at 1425 Discharge Data Allergies Allergy/AdvReac Type Severity Reaction Status Date / Time varenicline AdvReac Unknown WEIRD Verified 08/29/19 15:57 DREAMS Consultations 08/29/19 15:01 ED Decision to Admit Stat 08/29/19 16:34 Consult Case Management - Discharge Planning Routine Consult General Surgery Stat Consult Stretcher Leveler Operator Routine 08/30/19 10:31 Consult Case Management - Discharge Planning Routine Consult Palliative Care Routine Ordered Studies 08/29/19 12:17 CT abd pelvis wo con Stat 08/29/19 12:24 CT head/brain wo con Stat Hospital Course (1) : pt pronounced at 1425 hours the below are from earlier in the hospital stay (2) Acute respiratory failure with hypoxia: Secondary to aspiration pneumonitis, with left lower lobe infiltrate on chest x-ray Also with tachypnea secondary to DKA Pt remains in distress and on bipap, acidotic and with persistent acidemia (3) Dehydration: Due to previous nausea/vomiting and severe DKA Corrected sodium for glucose is elevated at 148 (4) Hyperkalemia: influenced by hyperkalemia (5) Pneumonitis: As above, with leukocytosis, afebrile, LLL infiltrate on CXR -Continue IV Zosyn Likely secondary to aspiration (6) Small bowel obstruction: With development of SBO in the last 48 hours in the proximal small bowel since previous CT 08/26. -NG tube placed in the ER for large amount of dark brown/green fluid surgery is not planning on proceeding with surgery Total Time Total Time Spent Total Time Spent (In Minutes): greater than 30 minutes were required for this process, including pronouncing pt Discharge Plan Discharge Items Patient Disposition: Reason For Visit: DKA, SBO, TALIA Follow-up/Referrals: Rolly Conde III, MD [Primary Care Provider] - Stand-Alone Forms: [facility] Admission Data Admit Date/Time: 08/29/19 15:18 Coding Level of Care Code D/C Day Management >30 mins Diagnoses R99 Acute respiratory failure with hypoxia J96.01 Dehydration E86.0 Hyperkalemia E87.5 Pneumonitis J18.9 Small bowel obstruction K56.643
[2019-08-31 06:56] LABS: Estimated Average Glucose 154 mg/dl
== END 2019-08-30 16:30 | disposition expired | DRG 388 ==
LOC: ED 11:51 → 1E 15:18 → SUATTDRO 15:18 → 1E 16:02